=== PATIENT | female | born 1950 | race Caucasian/White ===

== ENCOUNTER 2024-06-20 13:01 | Emergency (ER) | payer MEDICARE, BC, SELFPAY ==
[2024-06-20] VITALS (10 sets, daily range): BP systolic 128–150; BP diastolic 71–80; PULSE 68–85; RESP 12–20; TEMP 36.8–36.9; O2SAT 93–98; BMI 37.8
--- NOTE | 2024-06-20 13:16 | PC.NURSE ---
Dr. Romo at [facility] for pt eval
--- NOTE | 2024-06-20 13:24 | XR_ITS ---
FINAL REPORT CLINICAL HISTORY: fall, distal pain FINDINGS: 2 views of the left forearm were obtained. A comminuted, impacted distal radial fracture. There is also a fracture of the ulnar styloid process. The joints are intact. Soft tissue swelling is noted. IMPRESSION: Fractures as above. Reviewed, Interpreted and Dictated by Ramon Joseph III, MD Transcribed by Mariel Young Authenticated and [facility]
--- NOTE | 2024-06-20 13:24 | XR_ITS ---
FINAL REPORT CLINICAL HISTORY: fall, distal pain and deformity FINDINGS: LEFT WRIST Three views demonstrate comminuted, impacted fracture of the distal radius. There is also fracture of the ulnar styloid process. No other fractures identified. There is soft tissue swelling noted. IMPRESSION: Fractures as above. Reviewed, Interpreted and Dictated by Ramon Joseph III, MD Transcribed by Mariel Young Authenticated and . [facility]
--- NOTE | 2024-06-20 13:24 | CT_ITS ---
FINAL REPORT CLINICAL HISTORY: fall 3 feet onto head FINDINGS: Axial images of the head were obtained without contrast. Coronal reformatted images were also obtained. This study was performed with techniques to keep radiation doses as low as reasonably achievable (ALARA). Individualized dose reduction techniques using automated exposure control or adjustment of mA and/or kV according to the patient''s size were employed. There is motion artifact on many sequences which limits exam sensitivity. There is generalized age-appropriate atrophy. Periventricular low-attenuation areas are seen consistent with mild chronic ischemic changes. There is no evidence of intracranial hemorrhage or mass. There is no evidence of acute infarct. There is no evidence of shift of the midline structures. 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 IMPRESSION: Atrophy and mild periventricular chronic ischemic changes. No acute intracranial abnormality identified. Reviewed, Interpreted and Dictated by Ramon Joseph III, MD Transcribed by Mariel Young Authenticated and [facility]
--- NOTE | 2024-06-20 13:24 | XR_ITS ---
FINAL REPORT CLINICAL HISTORY: fall, distal pain and deformity FINDINGS: LEFT HAND Three views demonstrate comminuted, impacted fracture of the distal radius. There is also fracture of the ulnar styloid process. No other fractures identified. There is soft tissue swelling noted. IMPRESSION: Fractures as above. Reviewed, Interpreted and Dictated by Ramon Joseph III, MD Transcribed by Mariel Young Authenticated and [facility]
--- NOTE | 2024-06-20 13:24 | CT_ITS ---
FINAL REPORT TECHNIQUE: Axial images were obtained from skull base to the thoracic inlet by computed tomography. Coronal and sagittal reconstruction process performed. This study was performed with techniques to keep radiation doses as low as reasonably achievable (ALARA). Individualized dose reduction techniques using automated exposure control or adjustment of mA and/or kV according to the patient''s size were employed. CLINICAL HISTORY: fall 3 ft onto head FINDINGS: There is no acute fracture or subluxation. There are mild to moderate degenerative changes. The left thyroid lobe is enlarged, favor goiter. The disc spaces are preserved. The facets are normally aligned. The soft tissues are unremarkable. Limited images of the lung apices demonstrate biapical scarring. IMPRESSION: No acute fracture. Reviewed, Interpreted and Dictated by Ramon Joseph III, MD Transcribed by Mariel Young Authenticated and [facility]
[2024-06-20] MEDS: ONDANSETRON 4MG ODT 4 MG SL (13:30)
[2024-06-20] MEDS: OXYCODONE 5MG IMMEDIATE RELEASE TABLET 5 MG PO (13:31)
--- NOTE | 2024-06-20 13:53 | ED_ITS ---
Discharge Plan Disposition Patient Disposition: Home, Self-Care Chief Complaint: Fall Referrals Follow up/Referrals: Morena Reese MD [Primary Care Provider] - See instructions Kevin Vizcaino DO [Staff Physician] - See instructions Activity Restrictions/Add. Instructions Additional Instructions/Restrictions: Follow-up with Dr. Vizcaino, information here. Do not bear weight or put weight on your left arm until following up. Call your family doctor to establish care for this visit to the emergency department and schedule follow-up within 48 hours to ensure improvement. If you have any worsening of your condition or any other concerning signs or symptoms, return to the emergency department or your primary care doctor for further evaluation. Clinical Impressions Clinical Impression: Forearm fracture, Head injury, Fall Print Language Print Language: Occitan Discharge ED Provider: Rafael Romo General Adult HPI General Chief complaint: Fall Stated complaint: AO 06/20/24 12:45' fell off ladder, hit back of head Time Seen by Provider: 06/20/24 13:12 Mode of Arrival: Ambulatory Source of Information: Patient Limitations: No Limitations Description of Symptoms (Recalled from ER Triage Doc. by RN): left wrist pain (looks deformed) hit back of head on a table. denies loc History of Present Illness HPI narrative: Please note that above description of symptoms, in this electronic medical record under categorization of recalled from ER triage doctor by RN are reflective of an initial nursing assessment, however, is not reflective of my full history and physical exam that was personally taken and clarified. Consequentially, this preceding description of symptoms, which may include the patient's categorized chief complaint in the EMR, do not reflect my personal clinical impression, and the ultimate description of history of present illness and patient stated complaints should be deferred to this section of the note. Unless stated otherwise or congruent with this section of the note, additional signs, symptoms, or incongruence should be interpreted as inaccurate with my clinical impression. Related Data Allergies Allergy/AdvReac Type Severity Reaction Status Date / Time No Known Allergies Allergy Verified 06/20/24 14:35 [facility] Disclaimer: The information contained in this section may have been updated after the patient was seen, as this information can be updated by other users. Social History Smoking Status: Never smoker alcohol intake: never current occupational status: employed Travel in the last 8 weeks: None ROS Obtained: Yes All systems reviewed & no additional complaints except as documented Physical Exam General General appearance: alert Head Head exam: normocephalic (Hematoma occiput) Eye Eye exam: Present normal appearance, PERRL and EOMI Neck Neck exam: Present normal inspection, full ROM and trachea midline Respiratory Respiratory exam: Absent respiratory distress, wheezes, stridor, accessory muscle use or prolonged expiratory phase Cardiovascular Cardiovascular exam: Present other (Pulses equal symmetric in upper and lower extremities) Abdominal Exam Abdominal exam: Present soft; Absent distention, tenderness or pulsatile mass Extremities Exam Extremities exam: Present other (Left upper extremity deformity at distal radius and ulna. Neurovascular intact distal); Absent edema Neurological Exam Neurological exam: Present alert, oriented X3 and CN II-XII intact; Absent motor sensory deficit Skin Skin exam: Present warm and dry; Absent diaphoresis or erythema Medical Decision Making Medical Records Medical records reviewed: Yes I reviewed the patient's medical records. Hubert Inquiry Pt receiving controlled substance: No Hubert was queried for this patient: No Vital Signs: 06/20/24 13:03 06/20/24 13:30 06/20/24 14:00 Temperature 98.4 F Temperature Source Oral Pulse Rate 84 68 Pulse Rate [Right] 85 Respiratory Rate 20 Blood Pressure 129/73 128/72 Blood Pressure [Right Arm] 150/78 H Blood Pressure Mean [Right Arm] 102 Blood Pressure Source [Right Arm] Blood Pressure Position [Right Arm] 02 Sat by Pulse Oximetry 98 95 93 L Oxygen Delivery Method Room Air Oxygen Flow Rate (LPM) 06/20/24 15:10 06/20/24 15:21 06/20/24 15:30 Temperature Temperature Source Pulse Rate 77 82 Pulse Rate [Right] 77 Respiratory Rate 12 18 18 Blood Pressure 141/77 H 141/80 H Blood Pressure [Right Arm] 150/78 H Blood Pressure Mean [Right Arm] 102 Blood Pressure Source [Right Arm] Automatic Cuff Blood Pressure Position [Right Arm] Sitting 02 Sat by Pulse Oximetry 95 97 97 Oxygen Delivery Method Room Air Room Air Nasal Cannula Oxygen Flow Rate (LPM) 2 06/20/24 15:40 06/20/24 15:50 06/20/24 16:15 Temperature Temperature Source Pulse Rate Pulse Rate [Right] 77 79 80 Respiratory Rate 16 13 15 Blood Pressure Blood Pressure [Right Arm] 129/73 128/72 141/80 H Blood Pressure Mean [Right Arm] 91 90 100 Blood Pressure Source [Right Arm] Blood Pressure Position [Right Arm] 02 Sat by Pulse Oximetry 95 98 97 Oxygen Delivery Method Nasal Cannula Nasal Cannula Nasal Cannula Oxygen Flow Rate (LPM) Orders (Tests/Meds): ED MEDICATIONS Generic Name Dose Route Start Last Admin Trade Name Freq PRN Reason Stop Dose Admin Sodium Chloride 10 ml 06/20/24 14:37 Sodium Chloride 0.9% 10ml Flush Syringe IV 07/20/24 14:36 NEEDED PRN Maintain IV Site Discontinued Medications Generic Name Dose Route Start Last Admin Trade Name Freq PRN Reason Stop Dose Admin Ketamine HCl 100 mg 06/20/24 14:30 06/20/24 15:35 Ketamine 50mg/1ml Syringe IJ 06/20/24 14:31 75 mg ONCE ONE Administration Ondansetron HCl 4 mg 06/20/24 13:24 06/20/24 13:30 Ondansetron 4mg Odt SL 06/20/24 13:25 4 mg ONCE ONE Administration Ondansetron HCl 4 mg 06/20/24 14:14 06/20/24 15:35 Ondansetron 4mg/2ml Vial IV 06/20/24 14:15 4 mg ONCE ONE Administration Oxycodone HCl 5 mg 06/20/24 13:24 06/20/24 13:31 Oxycodone 5mg Immediate Release Tablet PO 06/20/24 13:25 5 mg ONCE ONE Administration ORDERS Category Date Time Status CT cervical spine wo con Stat Cat Scan 06/20/24 13:[address] head/brain wo con Stat Cat Scan 06/20/24 13:24 Completed Forearm XR left 2 views [XR forearm LT 2V] Stat Exams 06/20/24 13:24 Completed Hand XR left minimum 3 views [XR hand LT min 3V] Stat Exams 06/20/24 13:24 Completed Wrist XR left minimum 3 views [XR wrist LT min 3V] Stat Exams 06/20/24 13:24 Completed Medical Decision Narrative: 74-year-old female history of hypertension and osteoporosis presenting with fall. Patient states that she was on a 3 foot stepladder when she fell backward, hit her head on the coffee table, then fell to the floor. Did not lose consciousness. Braced herself with her left wrist. Had immediate pain. Came immediately to the emergency department. Think she broke her left wrist. No vision changes, neck or back pain, numbness, tingling, weakness in her legs, bowel or bladder dysfunction. Pain is severe, 8 out of 10 in her head, severe, 7 out of 10 in her left wrist. Neither of them radiate. Has not taken anything for the pain. History was obtained via conversation with patient and . On arrival, patient hemodynamically stable, alert, oriented x4, appropriate, GCS 15, moving all extremities spontaneously, pupils equal and reactive to light. Full physical exam performed and significant for deformity left distal radius and ulna. Neurovascular intact distally. Good capillary refill. Range of motion of digits intact, range of motion of elbow intact, but limited at wrist secondary to pain and swelling. Also has hematoma on occiput, no laceration. No midline spinal tenderness. Differential includes intracranial hemorrhage, concussion, scalp hematoma, fracture, sprain, strain, dislocation, neurovascular injury, among others. Patient was given oxycodone, Zofran for symptomatic management and correction of underlying abnormalities. Workup independently interpreted and significant for both bone fracture left distal forearm with angulation and displacement. CT head without acute intracranial abnormality, CT C-spine without spinal abnormality. Patient was sedated with ketamine, see sedation note. Splinted with plaster. On reevaluation, patient back to baseline, well-appearing. Because patient at baseline without signs or symptoms of clinical decompensation, deemed appropriate for discharge. Results were relayed to patient who voiced understanding and were agreeable to outpatient management and follow up. I discussed my clinical impression with patient and answered all questions. At this time, the evidence for any other entities in the differential is insufficient to warrant any further testing or ED observation. This was explained as well. Advisory was given that persistent or worsening symptoms require further evaluation. I confirmed the understanding of this discussion. Housekeeper [employer] disclaimer Much of this encounter note is an electronic international marketing executive spoken language to printed text. Electronic international marketing executive of the spoken language may permit errors. Although I have reviewed the note, some errors may still exist. Procedures Orthopedic Fracture Reduction Fracture #1: Time Out Performed: Yes Side: left Fracture Reduction Location: radius and ulna Analgesia: procedural sedation Technique: direct manipulation and traction/counter-traction Post-reduction neuro exam: intact and no change Post-reduction vascular exam: intact and no change Splint Applied: Yes Patient Tolerated Procedure: well Procedural Sedation A heart and lung assessment was performed on this patient at: 14:00 Mallampati Score:: Class III Indication: fracture/dislocation reduction ASA Class: I Preparation: manager monitoring applied, pulse oximeter, capnometry used, supplemental O2 applied, suction/airway equipment at bedside and IV secured Ketamine: IV Ketamine dose (mg): 75 Patient Tolerated Procedure: well Complications: none Critical Care Critical Care Time Critical Care Time: No
[2024-06-20] MEDS: KETAMINE 50MG/1ML SYRINGE 100 MG IJ (15:35)
[2024-06-20] MEDS: ONDANSETRON 4MG/2ML VIAL 4 MG IV (15:35)
== END 2024-06-20 16:55 | disposition home or self-care (01) ==
PROVIDERS: Emergency Provider Emergency Medicine; PCP Internal Medicine
DX: S09.90XA Unspecified injury of head, initial encounter (principal); S52.352A Displaced comminuted fracture of shaft of radius, left arm, initial encounter for closed fracture; S52.612A Displaced fracture of left ulna styloid process, initial encounter for closed fracture; W11.XXXA Fall on and from ladder, initial encounter
CPT/HCPCS: 99152; 70450; 72125; 73090; 73110; 73130; 96374; 99153; 99285; J2405; Q0162

== ENCOUNTER 2025-11-08 16:36 | Outpatient (CLI) | payer MEDICARE, BC, SELFPAY ==
--- OUTSIDE RECORDS SUMMARY | 2025-09-29 12:55 | XMS_ITS | Encounter Summary ---
Author Organization [employer] ([place], [place], [place], [place], [place]) Address [address] [place] [address] Care Team Providers Care Package Sealer Machine Name Role Phone Morena Reese MD Primary Care Provider [phone] Reason for Referral * CAT Scan (Routine) - New Request Specialty Diagnoses / Procedures Referred By Contac t Referred To Contact Radiology Diagnoses Personal history of tobacco use, presenting hazards to health Procedures CT LUNG SCREENING ANNUAL FOLLOWUP Morena Reese MD [address] [employer] [address] [address] Phone: tel: Referral ID Status Reason Start Date Expiration Date V isits Requested Visits Authorized [id number] New Request 09/26/2025 09/26/2026 1 1 Reason for Visit * CAT Scan (Routine) - New Request Specialty Diagnoses / Procedures Referred By Contac t Referred To Contact Radiology Diagnoses Personal history of tobacco use, presenting hazards to health Procedures CT LUNG SCREENING ANNUAL FOLLOWUP Morena Reese MD [address] [employer] [address] [address] Phone: tel: Referral ID Status Reason Start Date Expiration Date V isits Requested Visits Authorized [id number] New Request 09/26/2025 09/26/2026 1 1 Encounter Details Date Type Department Care Team (Latest Contact Info) Description 09/29/2025 12:55 PM EST - 09/29/2025 11:59 PM EST Hospital Encounter [facility] Imaging CT - [facility] [address] [facility] [address] [place] [address] Morena Reese MD [address] [facility] [address] [place], [place] [id number] Personal history of tobacco use, presenting hazards to health Discharge Disposition: Home or Self Care Social History Tobacco Use Types Packs/Day Years Used Date Smoking Tobacco: Former Cigarettes Q uit: 06/28/2014 Smokeless Tobacco: Never Comments:e cig for a few mon ths Alcohol Use Standard Drinks/Week Comments Yes 0 (1 standard drink = 0.6 oz pur e alcohol) occasionally, 1 week Family and Community Support Answer Eddie e Recorded Help with Day to Day Activities Not on file 11/24/2023 Feeling Lonely or Isolated Not on file 11/24 Educational Attainment Answer Date Vito rded Speak language other than Namibian at home Not on file 11/24/2023 Want help with school or training Not on file 11/24/2023 Substance Use Answer Date Recorded Used prescription meds for non-medical reasons N ot on file 11/24/2023 Used illegal drugs past 12 months Not on file 11/24/2023 Comments No Sex and Gender Information Value Date Recorded Sex Assigned at Female 05/10/2022 8:24 PM CDT Legal Sex Female 8:24 PM CDT Gender Identity Female 05/10/2022 8:24 PM CDT Sexual Orientation Not on file documented as of this encounter Medications at Time of Discharge alendronate (FOSAMAX) 70 MG tablet alendronate 70 mg tablet Take 1 tablet every week by oral route for 90 days. amLODIPine (NORVASC) 10 MG tablet amlodipine 10 mg tablet TAKE ONE TABLET BY MOUTH ONCE DAILY DULoxetine (CYMBALTA) 30 MG capsule daily. inFLIXimab (Remicade) 100 mg injection Remicade 5mg/kg IV q 6 wks (SJE) losartan (COZAAR) 25 MG tablet losartan 25 mg tablet TAKE ONE TABLET BY MOUTH ONCE DAILY documented as of this encounter Plan of Treatment Upcoming Encounters Date Type Department Care Team (Late st Contact Info) Description 11/25/2025 9:00 AM EST Appointment [facility] Outpatient Treatment [address] [place] [address] documented as of this encounter Procedures Procedure Name Priority Date/Time Associated Diagnosis Comments CT LUNG SCREENING ANNUAL FOLLOWUP Routine 09/29/2025 1:08 PM EST Personal history of tobacco use, presenting hazards to health documented in this encounter Results * CT LUNG SCREENING ANNUAL FOLLOWUP (09/29/2025 1:08 PM EST) Anatomical Region Laterality Modality Chest, Lung Computed Tomogra phy (CT) 09/30/2025 10:3 9 AM EST Impressions 09/30/2025 11:41 AM EST Lung Rads Category 2S: Continued low dose chest CT recommended in 1 year. Images reviewed, interpreted, and dictated by Dr. Qamar Barros. Transcribed by Hortencia Porter PA-C. Narrative 09/30/2025 11:[address] SCAN OF THE CHEST 09/29/2025 1:00 PM HISTORY: Screening CT. Former smoker who quit 11 years prior with a 47 pack-year smoking history. COMPARISON: None. PROCEDURE: Axial images were obtained from the lung apex to the mid abdomen by computed tomography. Low-dose protocol was utilized. The CTDIvol is 2.9 mGy. The DLP is 101.11 mGy*cm. This study was performed with techniques to keep radiation doses as low as reasonably achievable, (ALARA). Individualized dose reduction techniques using automated exposure control or adjustment of mA and/or kV according to the patient size were employed. FINDINGS: CHEST: The left lobe of thyroid is enlarged with a possible 4 cm nodule, recommend dedicated thyroid ultrasound. There is a 14 mm right paratracheal lymph node. There is a 16 mm left prevascular lymph node and a 14 mm subcarinal lymph node. Heart size is normal. There is no pericardial or pleural effusion. Limited images of the upper abdomen shows a small hiatal hernia. There is cholelithiasis without evidence of cholecystitis. There is bibasilar atelectasis or fibrosis in the lungs. There is a 2 mm nodule in the left upper lobe as seen on image 32 of series 3. us Morena Reese MD IMG CT ORDERABLES Final Resul t documented in this encounter Visit Diagnoses Diagnosis Personal history of tobacco use, presenting hazards to health documented in this encounter Care Teams Package Sealer Machine Relationship Specialty Start Date End Date Morena Reese MD [address] [address] PCP - General General Internal Medicine 10/17/22 documented as of this encounter
--- OUTSIDE RECORDS SUMMARY | 2025-10-14 09:00 | XMS_ITS | Encounter Summary ---
Author Organization [employer] ([place], [place], [place], [place], [place]) Address [address] [place] [address] Care Team Providers Care Application Packaging Consultant Name Role Phone Morena Reese MD Primary Care Provider [phone] Reason for Visit * Episode Based Medication (Routine) - Authorized Specialty Diagnoses / Procedures Referred By Contac t Referred To Contact Infusion Therapy Diagnoses REMICAID 5 MG, DX. M05.79, DR MARGA REGAN Procedures HI INFLIXIMAB NOT BIOSIMIL 10MG [facility] INFUSION/INJECTION Morena Reese MD [address] [address] Phone: tel: [facility] Treatment [address] [place] [address] Phone: tel: fax: Referral ID Status Reason Start Date Expiration Date V isits Requested Visits Authorized [id number] Authorized 03/05/2024 11/12/2025 [id number] Encounter Details Date Type Department Care Team (Latest Contact Info) Description 10/14/2025 9:00 AM EST - 10/14/2025 11:59 PM [facility] Hospital Encounter [facility] Treatment [address] [place] [address] Seropositive rheumatoid arthritis of multiple sites (HCC) (Primary Dx) Discharge Disposition: Home or Self Care Social [...] Date Vito rded Speak language other than Burundian at home Not on file 11/24/2023 Want [...] on file documented as of this encounter Last Filed Vital Signs Vital Sign Reading Time Taken Comments Blood Pressure 162/72 10/14/2025 11:30 AM EST Pulse 66 10/14/2025 11:30 AM EST Temperature - - Respiratory Rate 18 10/14/2025 9:21 AM EST Oxygen Saturation 96% 10/14/2025 9:21 AM EST Inhaled Oxygen Concentration - - Weight 99.8 kg (220 lb) 10/14/2025 9:21 AM EST Height 162.6 cm (5' 4 ) 10/14/2025 9:21 AM EST Body Mass Index 37.76 10/14/2025 9:21 AM EST documented in this encounter Functional Status * Resp Answer Date of Assessment Author 18 10/14/2025 9:21 AM Trisha Pastor RN * SpO2 Answer Date of Assessment Author 96 10/14/2025 9:21 AM Trisha Pastor RN * Height Answer Date of Assessment Author 64 10/14/2025 9:21 AM Trisha Pastor RN * Weight Answer Date of Assessment Author 3520 10/14/2025 9:21 AM Trisha Pastor RN * Tidal Volume Answer Date of Assessment Author 320 10/14/2025 9:21 AM Trisha Pastor, ZUHAIR * Shock Index Answer Date of Assessment Author 0.41 10/14/2025 11:30 AM Trisha Pastor RN * Vitals Question Answer Date of Assessment Author BP 162/72 10/14/2025 11:30 AM Trisha Cohn RN Pulse 66 10/14/2025 11:30 AM Trisha Cohn RN Heart Rate Source Monitor/Pulse Ox 10/14/2025 11:30 AM Trisha Pastor RN * Bennett Fall Risk Question Answer Date of Assessment Author History of Falling 0 10/14/2025 9:25 AM Trisha Pastor RN Secondary Diagnosis 0 10/14/2025 9:25 AM T Trisha Nguyen RN Ambulatory Aids 0 10/14/2025 9:25 AM Trisha Friedman RN Intravenous Therapy/Intraven ous Access 20 10/14/2025 9:25 AM Trisha Pastor RN Gait/Transferring 0 10/14/2025 9:25 AM Trisha Pastor RN Mental Status 0 10/14/2025 9:25 AM Trisha Cohn RN Score 20 10/14/2025 9:25 AM Trisha Trinh RN * BMI (Calculated) Answer Date of Assessment Author 37.7 10/14/2025 9:21 AM Trisha Pastor RN * BP Location Answer Date of Assessment Author Right arm 10/14/2025 9:21 AM Trisha Pastor RN * Fall Risk Interventions Question Answer Date of Assessment Author Basic Safety Measures [place] patient to surroundings 10/14/2025 9:25 AM Trisha Pastor RN * Restart Vitals Timer Answer Date of Assessment Author Yes 10/14/2025 9:21 AM Trisha Pastor RN * Patient Position Answer Date of Assessment Author Sitting 10/14/2025 9:21 AM Trisha Pastor RN * Resp Answer Date of Assessment Author 18 10/14/2025 9:21 AM Trisha Pastor RN * SpO2 Answer Date of Assessment Author 96 10/14/2025 9:21 AM Trisha Pastor RN * Vitals Question Answer Date of Assessment Author BP 162/72 10/14/2025 11:30 AM Trisha Cohn RN Pulse 66 10/14/2025 11:30 AM Trisha Cohn RN * Bennett Fall Risk Question Answer Date of Assessment Author History of Falling 0 10/14/2025 9:25 AM Trisha Pastor RN Secondary Diagnosis 0 10/14/2025 9:25 AM T Trisha Nguyen RN Ambulatory Aids 0 10/14/2025 9:25 AM Trisha Friedman RN Intravenous Therapy/Intraven ous Access 20 10/14/2025 9:25 AM Trisha Pastor RN Gait/Transferring 0 10/14/2025 9:25 AM Trisha Pastor RN Mental Status 0 10/14/2025 9:25 AM Trisha Cohn RN Score 20 10/14/2025 9:25 AM Trisha Trinh RN * BMI (Calculated) Answer Date of Assessment Author 37.7 10/14/2025 9:21 AM Trisha Pastor RN * Fall Risk Interventions Question Answer Date of Assessment Author Basic Safety Measures [place] patient to surroundings 10/14/2025 9:25 AM Trisha Pastor RN documented as of this encounter Mental Status * Resp Answer Entry Date Author 18 10/14/2025 9:21 AM Trisha Pastor RN * SpO2 Answer Entry Date Author 96 10/14/2025 9:21 AM Trisha Pastor RN * Height Answer Entry Date Author 64 10/14/2025 9:21 AM Trisha Pastor RN * Weight Answer Entry Date Author 3520 10/14/2025 9:21 AM Trisha Pastor RN * Tidal Volume Answer Entry Date Author 320 10/14/2025 9:21 AM Trisha Pastor RN * Shock Index Answer Entry Date Author 0.41 10/14/2025 11:30 AM Trisha Pastor RN * Vitals Question Answer Entry Date Author BP 162/72 10/14/2025 11:30 AM Trisha Cohn RN Pulse 66 10/14/2025 11:30 AM Trisha Cohn RN Heart Rate Source Monitor/Pulse Ox 10/14/2025 11:30 AM Trisha Pastor RN * Bennett Fall Risk Question Answer Entry Date Author History of Falling 0 10/14/2025 9:25 AM Trisha Pastor RN Secondary Diagnosis 0 10/14/2025 9:25 AM CS T Trisha Nguyen RN Ambulatory Aids 0 10/14/2025 9:25 AM Trisha Friedman RN Intravenous Therapy/Intraven ous Access 20 10/14/2025 9:25 AM Trisha Pastor RN Gait/Transferring 0 10/14/2025 9:25 AM Trisha Pastor RN Mental Status 0 10/14/2025 9:25 AM Trisha Cohn RN Score 20 10/14/2025 9:25 AM Trisha Trinh RN * BMI (Calculated) Answer Entry Date Author 37.7 10/14/2025 9:21 AM Trisha Pastor RN * BP Location Answer Entry Date Author Right arm 10/14/2025 9:21 AM Trisha Pastor RN * Fall Risk Interventions Question Answer Entry Date Author Basic Safety Measures [place] patient to surroundings 10/14/2025 9:25 AM Trisha Pastor RN * Patient Position Answer Entry Date Author Sitting 10/14/2025 9:21 AM Trisha Pastor RN documented in this encounter Medications at Time of Discharge [...] Info) Description 11/25/2025 9:00 AM EST Appointment [facility] [address] [place] [address] documented as of this encounter Visit Diagnoses Diagnosis Seropositive rheumatoid arthritis of multiple sites (HCC)- Primary documented in this encounter Administered Medications Inactive Administered Medications - up to 3 most recent administrations Medication Order MAR Action Action Date Dose Rate Site acetaminophen (TYLENOL) tablet 1,000 mg 1,000 mg Once, oral, On Mon10/14/25 at 0930, For 1 dose, Recommended maximum dose of acetaminophen is 4000 mg from all sources in 24 hoursIndications:Seropositiv e rheumatoid arthritis of multiple sites (HCC) Given 10/14/2025 9:27 AM EST 1,000 mg diphenhydrAMINE (BENADRYL) tablet 25 mg 25 mg Once, oral, On Mon10/14/25 at 0930, For 1 doseIndications:Seropositive rheumatoid arthritis of multiple sites (HCC) Given 10/14/2025 9:28 AM EST 25 mg inFLIXimab (REMICADE) 500 mg in sodium chloride 0.9 % (NS) 200 mL IVPB 500 mg Once, intravenous, Administer over 2 Hours, On Mon10/14/25 at 0930, For 1 dose, REMICADE should not be infused concomitantly in the same intravenous line with other agents. Infuse over at least 2 hours. Use an infusion set with an in-line, sterile, non-pyogenic, ljf-regfwsx-ejcgwts filter (pore size of 1.2 B5m or less). Keep Refrigerated. Look-alike/Sound-alike medicationIndications:Sero positive rheumatoid arthritis of multiple sites (HCC) IVPB Started 10/14/2025 9:41 AM EST 500 mg 125 mL/hr documented in this encounter Care Teams Application Packaging Consultant Relationship Specialty Start Date End Date Morena Reese MD [address] [address] PCP - General General Internal Medicine 10/17/22 documented as of this encounter
--- NOTE | 2025-11-08 16:44 | XR_ITS ---
PROCEDURE INFORMATION: Exam: XR Right Ankle Exam date and time: 11/08/2025 4:41 PM Age: 75 years old Clinical indication: Pain; Ankle; Right; Additional info: R foot pain TECHNIQUE: Imaging protocol: Radiologic exam of the right ankle. Views: 3 or more views. COMPARISON: CR XR ANKLE RT MIN 3V 11/08/2025 4:41 PM FINDINGS: Bones/joints: There is an oblique fracture at the base of the right 5th metatarsal .. Soft tissues: Normal. IMPRESSION: 1. There is an oblique fracture at the base of the right 5th metatarsal . 2. No evidence for ankle fracture.
--- NOTE | 2025-11-08 16:44 | XR_ITS ---
PROCEDURE INFORMATION: Exam: XR Right Foot Exam date and time: 11/08/2025 4:42 PM Age: 75 years old Clinical indication: Pain; Foot; Right; Additional info: R foot pain TECHNIQUE: Imaging protocol: Radiologic exam of the right foot. Views: 3 or more views. COMPARISON: CR Ankle R 11/08/2025 4:41 PM FINDINGS: Bones/joints: There is an oblique fracture at the base of the right 5th metatarsal . Soft tissues: Normal. IMPRESSION: There is an oblique fracture at the base of the right 5th metatarsal .
--- OUTSIDE RECORDS SUMMARY | 2025-11-08 16:44 | XMS_ITS | Encounter Summary ---
Author Organization [employer] ([place], [place], [place], [place], [place]) Address [address] [place] [address] Care Team Providers Care Practicing Md Anesthesiologist Name Role Phone Morena Reese MD Primary Care Provider [phone] Encounter Details Date Type Department Care Team (Late st Contact Info) Description 08/06/2020 Transcribed Document [facility] Family Medicine [address] [place] [address] ProviderJavier MD [address] [place] [address] Social History Tobacco Use Types Packs/Day Years Used Date Smoking Tobacco: Never Assessed Comments Unknown Sex and Gender Information Value Date Recorded Sex Assigned at Female 05/10/2022 8:24 PM CDT Legal Sex Female 8:24 PM CDT Gender Identity Female 05/10/2022 8:24 PM CDT Sexual Orientation Not on file documented as of this encounter Miscellaneous Notes * Cerner Conversion Note - Javier Hale MD - 08/06/2020 1:17 PM CDT Nursing Discharge Summary Entered On: 08/06/2020 13:17 EDT Performed On: 08/06/2020 13:17 EDT by ELLIOTT ZEPEDA RN Discharge Documentation Discharge Date/Time : 08/06/2020 12:30 EDT Patient Disposition, General : Discharge Discharge To : Home with ambulatory/outpatient follow-up IV Discontinued : Yes Personal Belongings With Patient : Yes Discharge Instructions Reviewed With, Opportunity For Questions Given : Patient Teaching Method : Explanation Teaching Evaluation : Verbalizes understanding ELLIOTT ZEPEDA RN - 08/06/2020 13:17 EDT documented in this encounter Plan of Treatment Upcoming Encounters Date Type Department Care Team (Late st Contact Info) Description 11/25/2025 9:00 AM EST Appointment [facility] Outpatient Treatment [address] [place] [address] documented as of this encounter Visit Diagnoses Not on filedocumented in this encounter Care Teams Practicing Md Anesthesiologist Relationship Specialty Start Date End Date Morena Reese MD [address] [address] PCP - General General Internal Medicine 10/17/22 documented as of this encounter
--- OUTSIDE RECORDS SUMMARY | 2025-11-08 16:44 | XMS_ITS | Encounter Summary ---
Author Organization [employer] ([place], [place], [place], [place], [place]) Address [address] [place] [address] Care Team Providers Care Weaver Wire Loom Name Role Phone Morena Reese MD Primary Care Provider [phone] Encounter Details Date Type Department Care Team (Late st Contact Info) Description 04/09/2020 Transcribed Document [facility] Family Medicine [address] [place] [address] ProviderJavier MD [address] [place] [address] Social History Tobacco Use Types Packs/Day Years Used Date Smoking Tobacco: Never Assessed Comments Unknown Sex and Gender Information Value Date Recorded Sex Assigned at Female 05/10/2022 8:24 PM CDT Legal Sex Female 8:24 PM CDT Gender Identity Female 05/10/2022 8:24 PM CDT Sexual Orientation Not on file documented as of this encounter Miscellaneous Notes * Cerner Conversion Note - Javier ProviderMD - 04/09/2020 3:52 PM CDT Nursing Discharge Summary Entered On: 04/09/2020 15:53 EDT Performed On: 04/09/2020 15:52 EDT by ROSE PERDOMO Discharge Documentation Discharge Date/Time : 04/09/2020 15:52 EDT Patient Disposition, General : Discharge Discharge To : Home with ambulatory/outpatient follow-up Mode Of Departure, General Discharge : Ambulatory Accompanied By, Discharge : Unaccompanied IV Discontinued : Yes Personal Belongings With Patient : Yes Discharge Instructions Reviewed With, Opportunity For Questions Given : Patient Patient Education Completed : Yes Teaching Method : Explanation Teaching Evaluation : Verbalizes understanding Education Comment : raheel infusion without difficulty. skin wdp resp unlabored/even/a+ox4. ROSE PERDOMO - 04/09/2020 15:52 EDT Electronically signed by [place], [facility] Conversion Detective [employer] Cerner at 02/28/2023 6:04 PM CDT documented in this encounter Plan of Treatment Upcoming Encounters Date Type Department Care Team (Late st Contact Info) Description 11/25/2025 9:00 AM EST Appointment [facility] Outpatient Treatment [address] [place] [address] documented as of this encounter Visit Diagnoses Not on filedocumented in this encounter Care Teams Weaver Wire Loom Relationship Specialty Start Date End Date Morena Reese MD [address] [address] PCP - General General Internal Medicine 10/17/22 documented as of this encounter
--- OUTSIDE RECORDS SUMMARY | 2025-11-08 16:44 | XMS_ITS | Encounter Summary ---
Author Organization [employer] ([place], [place], [place], [place], [place]) Address [address] [place] [address] Care Team Providers Care Analytics Consultant Name Role Phone Morena Reese MD Primary Care Provider [phone] Encounter Details Date Type Department Care Team (Late st Contact Info) Description 08/29/2019 Transcribed Document [facility] Family Medicine [address] [place] [address] ProviderJavier MD [address] [place] [address] Social History Tobacco Use Types Packs/Day Years [...] Conversion Note - Javier Hale MD - 08/29/2019 9:07 AM CDT Outpatient Visit History Entered On: 08/29/2019 9:09 EDT Performed On: 08/29/2019 9:07 EDT by ELLIOTT ZEPEDA RN Vital Measurements Temperature Source : Temporal artery scanning Temperature Mode : Fahrenheit Temperature, Fahrenheit : 98.3 Deg F Clinical Temperature, C : 36.8 Deg C Heart Rate, Apical : 82 bpm Respiratory Rate : 16 Breaths/Min Blood Pressure Location : Arm, right upper Blood Pressure Source : Non-Invasive BP Device Blood Pressure Position : Sitting Systolic Blood Pressure : 121 mmHg Diastolic Blood Pressure : 65 mmHg Oxygen Saturation : 94 % Oxygen Therapy Mode : Room air ELLIOTT ZEPEDA RN - 08/29/2019 9:07 EDT Height and Weight, Clinical Dosing Height Source : Stated Height Entry Format : [place] Height, Feet : 5 ft(Converted to: 152 cm, 60 Inch) Height, Inches : 4 Inch(Converted to: 0 ft 4 Inch, 10.16 cm) Clinical Height : 162.56 cm Weight Source : Standing scale Weight Entry Format : [place] Clinical Dosing Weight : 95.45 kg Weight, Pounds : 210 lb Body Surface Area (BSA) : 2 m2 Body Mass Index : 36.1 kg/m2 (HI) [place] Body Weight : 54 kg ELLIOTT ZEPEDA RN - 08/29/2019 9:07 EDT Health Histories Smoking Status : Former smoker, quit more than 30 days ago Smokeless Tobacco Status : Never ELLIOTT ZEPEDA RN - 08/29/2019 9:07 EDT Social History (As Of: 08/29/2019 09:09:48 EDT) Tobacco: Former smoker, quit more than 30 days ago Smoking Status. (Last Updated: 05/08/2019 08:51:39 EDT by ROSE PERDOMO) Alcohol: Alcohol Use History Yes. Total Drinks/Week: 2. Alcohol Use Frequency Weekly. (Last Updated: 11/12/2018 09:08:53 EST by EDENILSON ANDREWS, ZUHAIR) Substance Abuse: Drug Use Hx: No. Use in Last 12 Months: No. (Last Updated: 11/12/2018 09:08:59 EST by EDENILSON ANDREWS, ZUHAIR) Advance Directive Patient has Advance Directive *Q : No, patient refuses Advance Directive information ELLIOTT ZEPEDA RN - 08/29/2019 9:07 EDT Psychosocial History Chronic/Terminal Illness w/Freq Visits : No Do You Have a History of the Following? : Anxiety Currently in Unsafe Situation : No Tried to Harm Yourself in the Past? : No Thoughts of Harming/Killing Yourself : No ELLIOTT ZEPEDA RN - 08/29/2019 9:07 EDT Fall Risk Scales ABCs Fall Injury Risk Identification : None MARLEY Hx Falls Immediate/Within 3 Months : No Amrley Secondary Diagnosis : No MARLEY Use of Ambulatory Aid : None MARLEY IV Therapy or IV Access : Yes Marley Gait/Transferring : Normal, bedrest, immobile Marley Mental Status : Oriented to own ability Marley Fall Risk Score : 20 MARLEY Fall Scale Risk Level : 0-24 Low Risk [place] Fall Interventions : Adequate lighting, Assistive devices within reach, Bed in low position, Call device within reach, Fall prevention handout/education per facility policy, Frequent orientation to call device, Frequent orientation to surroundings, Hourly comfort/safety rounds, Non-slip footwear, Personal items within reach, Reinforced to call for assistance before getting out of bed, Room free of clutter/spills, Upper side-rails up, Wheels locked, Wires/Cords secured ELLIOTT ZEPEDA RN - 08/29/2019 9:07 EDT documented in this encounter Plan of Treatment Upcoming Encounters Date Type Department Care Team (Late st Contact Info) Description 11/25/2025 9:00 AM EST Appointment [facility] Outpatient Treatment [address] [place] [address] documented as of this encounter Visit Diagnoses Not on filedocumented in this encounter Care Teams Analytics Consultant Relationship Specialty Start Date End Date Morena Reese MD [address] [address] PCP - General General Internal Medicine 10/17/22 documented as of this encounter
--- OUTSIDE RECORDS SUMMARY | 2025-11-08 16:44 | XMS_ITS | Encounter Summary ---
Author Organization [employer] ([place], [place], [place], [place], [place]) Address [address] [place] [address] Care Team Providers Care Hospice Care Sales Consultant Name Role Phone Morena Reese MD Primary Care Provider [phone] Encounter Details Date Type Department Care Team (Late st Contact Info) Description 10/24/2019 Transcribed Document [facility] [place] [address] [place] [address] ProviderJavier MD [address] [place], [place] [address] Social History Tobacco Use Types Packs/Day Years [...] Conversion Note - Javier Hale MD - 10/24/2019 2:23 PM ARCHIVIST Outpatient Visit History Entered On: 10/24/2019 14:27 EST Performed On: 10/24/2019 14:23 EST by GALLITO RODARTE, RN Vital Measurements Temperature Source : Temporal artery scanning Temperature Mode : Fahrenheit Temperature, Fahrenheit : 97.7 Deg F Clinical Temperature, C : 36.5 Deg C Pulse Method : Non-Invasive BP Device Peripheral Pulse Rate : 91 bpm Respiratory Rate : 20 Breaths/Min Blood Pressure Location : Arm, right upper Blood Pressure Source : Non-Invasive BP Device Blood Pressure Position : Supine Systolic Blood Pressure : 122 mmHg Diastolic Blood Pressure : 56 mmHg (LOW) Oxygen Saturation : 93 % (LOW) Oxygen Therapy Mode : Room air GALLITO RODARTE RN - 10/24/2019 14:23 EST Height and Weight, Clinical Dosing Height Source : Chart Height Entry Format : [place] Height, Feet : 5 ft(Converted to: 152 cm, 60 Inch) Height, Inches : 4 Inch(Converted to: 0 ft 4 Inch, 10.16 cm) Clinical Height : 162.56 cm Weight Source : Standing scale Weight Entry Format : [place] Clinical Dosing Weight : 100 kg Weight, Pounds : 220 lb Body Surface Area (BSA) : 2.04 m2 Body Mass Index : 37.8 kg/m2 (HI) [place] Body Weight : 54 kg GALLITO RODARTE RN - 10/24/2019 14:23 EST Quick Look Assessment Level of Consciousness : Alert Affect/Behavior : Appropriate Orientation : Oriented x 4 Skin Temperature : Warm Skin Description : Dry GALLITO RODARTE RN - 10/24/2019 14:23 EST Health Histories Smoking Status : Former smoker, quit more than 30 days ago Smokeless Tobacco Status : Never GALLITO RODARTE RN - 10/24/2019 14:23 EST Social History (As Of: 10/24/2019 14:27:48 EST) Tobacco: Former smoker, quit more than 30 [...] Directive Patient has Advance Directive *Q : Yes, Advance Directive on file Advance Directive Type : Living will Copy Advance Directive Verified/on Chart : No GALLITO RODARTE RN - 10/24/2019 14:23 EST [place] Suicide Severity Rating Scale (C-SSRS) CSSRS Past Month Wish to be : No CSSRS Past Month Suicidal Thoughts : No CSSRS Lifetime Suicide Behavior : No Suicide Severity Rating Score : 0 Suicide Severity Rating : No Additional Care Required at this time GALLITO RODARTE RN - 10/24/2019 14:23 EST Psychosocial History Does Someone Depend on You for Care? : No Chronic/Terminal Illness w/Freq Visits : No Do You Have a History of the Following? : Anxiety Currently in Unsafe Situation : No GALLITO RODARTE RN - 10/24/2019 14:23 EST Fall Risk Scales ABCs Fall Injury Risk Identification : None MARLEY Hx Falls Immediate/Within 3 Months : No Marley Secondary Diagnosis : No MARLEY Use of Ambulatory Aid : None MARLEY IV Therapy or IV Access : No Marley Gait/Transferring : Normal, bedrest, immobile Marley Mental Status : Oriented to own ability Marley Fall Risk Score : 0 MARLEY Fall Scale Risk Level : 0-[address] Fall Interventions : Adequate lighting, Bed in low position, Call device within reach, Frequent orientation to call device, Frequent orientation to surroundings, Hourly comfort/safety rounds, Non-slip footwear, Personal items within reach, Reinforced to call for assistance before getting out of bed, Room free of clutter/spills, Wheels locked, Wires/Cords secured GALLITO RODARTE RN - 10/24/2019 14:23 EST Pain Assessment Pain Assessment : Initial assessment Intensity : 0 GALLITO RODARTE RN - 10/24/2019 14:23 EST Electronically signed by [facility] Conversion Marine Scientist Cerner at 02/28/2023 6:09 PM CDT documented in this encounter Plan of Treatment Upcoming Encounters Date Type Department Care Team (Late st Contact Info) Description 11/25/2025 9:00 AM EST Appointment [facility] Outpatient Treatment [address] [place] [address] documented as of this encounter Visit Diagnoses Not on filedocumented in this encounter Care Teams Hospice Care Sales Consultant Relationship Specialty Start Date End Date Morena Reese MD [address] [address] PCP - General General Internal Medicine 10/17/22 documented as of this encounter
--- OUTSIDE RECORDS SUMMARY | 2025-11-08 16:44 | XMS_ITS | Encounter Summary ---
Author Organization [employer] ([place], [place], [place], [place], [place]) Address [address] [place] [address] Care Team Providers Care In Store Banker Name Role Phone Morena Reese MD Primary Care Provider [phone] Encounter Details Date Type Department Care Team (Late st Contact Info) Description 06/01/2020 Transcribed Document [facility] [place] [address] [place] [address] ProviderJavier MD [address] [place] [address] Social History Tobacco Use Types Packs/Day Years [...] Conversion Note - Javier Hale MD - 06/01/2020 4:24 PM CDT Nursing Discharge Summary Entered On: 06/01/2020 16:27 EDT Performed On: 06/01/2020 16:24 EDT by EDENILSON ANDREWS RN Discharge Documentation Discharge Date/Time : 06/01/2020 16:24 EDT Patient Disposition, General : Discharge Discharge To : Home with ambulatory/outpatient follow-up Mode Of Departure, General Discharge : Ambulatory Accompanied By, Discharge : Unaccompanied IV Discontinued : Yes Personal Belongings With Patient : Yes Medications Given to Patient : Yes EDENILSON ANDREWS RN - 06/01/2020 16:24 EDT Electronically signed by Santi Barahona Conversion Certified [place] Administrator Cerner at 02/28/2023 6:02 PM CDT documented in this encounter Plan of Treatment Upcoming Encounters Date Type Department Care Team (Late st Contact Info) Description 11/25/2025 9:00 AM EST Appointment [facility] Outpatient Treatment [address] [place] [address] documented as of this encounter Visit Diagnoses Not on filedocumented in this encounter Care Teams In Store Banker Relationship Specialty Start Date End Date Morena Reese MD [address] [address] PCP - General General Internal Medicine 10/17/22 documented as of this encounter
--- OUTSIDE RECORDS SUMMARY | 2025-11-08 16:44 | XMS_ITS | Encounter Summary ---
Author Organization [employer] ([place], [place], [place], [place], [place]) Address [address] [place] [address] Care Team Providers Care Feed Preparation Operator Name Role Phone Morena Reese MD Primary Care Provider [phone] Encounter Details Date Type Department Care Team (Late st Contact Info) Description 10/24/2019 Transcribed Document [facility] [place] Medicine [address] [place] [address] ProviderJavier MD [address] [place] [address] Social History Tobacco Use Types Packs/Day Years [...] Note - Javier Hale MD - 10/24/2019 4:50 PM MANAGER OF DISASTER RECOVERY Nursing Discharge Summary Entered On: 10/24/2019 16:45 EST Performed On: 10/24/2019 16:50 EST by GALLITO RODARTE RN Discharge Documentation Discharge Date/Time : 10/24/2019 16:50 EST Patient Disposition, General : Discharge Discharge To : Home with ambulatory/outpatient follow-up Mode Of Departure, General Discharge : Ambulatory Accompanied By, Discharge : Unaccompanied IV Discontinued : Yes IV Therapy Comment : no complications Personal Belongings With Patient : Yes Discharge Instructions Reviewed With, Opportunity For Questions Given : Patient Teaching Method : Explanation Teaching Evaluation : Verbalizes understanding Education Comment : Return in 8 weeks GALLITO RODARTE RN - 10/24/2019 16:44 EST documented in this encounter Plan of Treatment Upcoming Encounters Date Type Department Care Team (Late st Contact Info) Description 11/25/2025 9:00 AM EST Appointment [facility] Outpatient Treatment [address] [place] [address] documented as of this encounter Visit Diagnoses Not on filedocumented in this encounter Care Teams Feed Preparation Operator Relationship Specialty Start Date End Date Morena Reese MD [address] [address] PCP - General General Internal Medicine 10/17/22 documented as of this encounter
--- OUTSIDE RECORDS SUMMARY | 2025-11-08 16:44 | XMS_ITS | Encounter Summary ---
Author Organization [employer] ([place], [place], [place], [place], [place]) Address [address] [place] [address] Care Team Providers Care Regional Administrative Assistant Name Role Phone Morena Reese MD Primary Care Provider [phone] Encounter Details Date Type Department Care Team (Late st Contact Info) Description 12/19/2019 Transcribed Document [facility] [place] [address] [place] [address] ProviderJavier MD [address] [place], [place] [address] Social History Tobacco Use Types Packs/Day Years [...] Conversion Note - Javier Hale MD - 12/19/2019 6:45 PM AERODYNAMICS ENGINEER Nursing Discharge Summary Entered On: 12/19/2019 18:45 EST Performed On: 12/19/2019 18:45 EST by ELLIOTT ZEPEDA RN Discharge Documentation Discharge Date/Time : 12/19/2019 18:45 EST Patient Disposition, General : Discharge Discharge To : Home with ambulatory/outpatient follow-up Mode Of Departure, General Discharge : Private vehicle IV Discontinued : Yes Personal Belongings With Patient : Yes Discharge Instructions Reviewed With, Opportunity For Questions Given : Patient Patient Education Completed : Yes Teaching Method : Explanation Teaching Evaluation : Verbalizes understanding ELLIOTT ZEPEDA RN - 12/19/2019 18:45 EST Electronically signed by [facility] Conversion Chart Collector Cerner at 02/28/2023 5:57 PM CDT documented in this encounter Plan of Treatment Upcoming Encounters Date Type Department Care Team (Late st Contact Info) Description 11/25/2025 9:00 AM EST Appointment [facility] Outpatient Treatment [address] [place] [address] documented as of this encounter Visit Diagnoses Not on filedocumented in this encounter Care Teams Regional Administrative Assistant Relationship Specialty Start Date End Date Morena Reese MD [address] [phone] PCP - General General Internal Medicine 10/17/22 documented as of this encounter
--- OUTSIDE RECORDS SUMMARY | 2025-11-08 16:44 | XMS_ITS | Encounter Summary ---
Author Organization [employer] ([place], [place], [place], [place], [place]) Address [address] [place] [address] Care Team Providers Care Nozzle Cement Sprayer Helper Name Role Phone Morena Reese MD Primary Care Provider [phone] Encounter Details Date Type Department Care Team (Late st Contact Info) Description 04/09/2020 Transcribed Document [facility] [place] Family Medicine [address] [place] [address] ProviderJavier MD [address] [place] [address] Social History Tobacco Use Types Packs/Day Years [...] Conversion Note - Javier Hale MD - 04/09/2020 11:53 AM CDT Outpatient Visit History Entered On: 04/09/2020 11:58 EDT Performed On: 04/09/2020 11:53 EDT by ROSE PERDOMO Vital Measurements Temperature Source : Temporal artery scanning Temperature Mode : Fahrenheit Temperature, Fahrenheit : 98.2 Deg F Clinical Temperature, C : 36.8 Deg C Pulse Method : Pulse Oximetry Peripheral Pulse Rate : 78 bpm Respiratory Rate : 16 Breaths/Min Blood Pressure Location : Arm, right upper Blood Pressure Source : Non-Invasive BP Device Blood Pressure Position : Sitting Systolic Blood Pressure : 129 mmHg Diastolic Blood Pressure : 69 mmHg Oxygen Saturation : 98 % Oxygen Therapy Mode : Room air ROSE PERDOMO - 04/09/2020 11:53 EDT Height and Weight, Clinical Dosing Height Source : Stated Height Entry Format : [place] Height, Feet : 5 ft(Converted to: 152 cm, 60 Inch) Height, Inches : 4 Inch(Converted to: 0 ft 4 Inch, 10.16 cm) Clinical Height : 162.56 cm Weight Source : Standing scale Weight Entry Format : [place] Clinical Dosing Weight : 100 kg Weight, Pounds : 220 lb Body Surface Area (BSA) : 2.04 m2 Body Mass Index : 37.8 kg/m2 (HI) [place] Body Weight : 54 kg ROSE PERDOMO 04/09/2020 11:53 EDT Quick Look Assessment Level of Consciousness : Alert, Awake Affect/Behavior : Appropriate, Calm, Cooperative Orientation : Oriented x 4 Skin Temperature : Warm Skin Description : Dry ROSE PERDOMO 04/09/2020 11:53 EDT Health Histories Smoking Status : Former smoker, quit more than 30 days ago Smokeless Tobacco Status : Former smokeless tobacco user, quit more than 30 days ago ROSE PERDOMO 04/09/2020 11:53 EDT Social History (As Of: 04/09/2020 11:58:41 EDT) Tobacco: Former smoker, quit more than 30 days ago Smoking Status. (Last Updated: 05/08/2019 08:51:39 EDT by ROSE PERDOMO) Alcohol: Alcohol Use History Yes. Total Drinks/Week: 2. Alcohol Use Frequency Weekly. (Last Updated: 11/12/2018 09:08:53 EST by EDENILSON ANDREWS, ZUHAIR) Substance Abuse: Drug Use Hx: No. Use in Last 12 Months: No. (Last Updated: 11/12/2018 09:08:59 EST by EDENILSON ANDREWS, RN) Infectious Disease History Has the patient ever been tested for COVID-19? : No, Patient stated COVID19 Screening : No Experiencing Infectious Disease Symptoms : No symptoms Physical contact outside US in the last 30 days : No Infectious Disease Symptoms Score : 0 Infectious Disease History : None Tuberculosis Symptoms : None ROSE PERDOMO 04/09/2020 11:53 EDT Advance Directive Patient has Advance Directive *Q : Yes, Advance Directive not with the patient Advance Directive Type : Living will Copy Advance Directive Verified/on Chart : No ROSE PERDOMO 04/09/2020 11:53 EDT [place] Suicide Severity Rating Scale (C-SSRS) CSSRS Past Month Wish to be : No CSSRS Past Month Suicidal Thoughts : No CSSRS Lifetime Suicide Behavior : No Suicide Severity Rating Score : 0 Suicide Severity Rating : No Additional Care Required at this time MARIOFELIX ROSE [place] 04/09/2020 11:53 EDT Psychosocial History Chronic/Terminal Illness w/Freq Visits : No Do You Have a History of the Following? : Anxiety Currently in Unsafe Situation : No ROSE PERDOMO 04/09/2020 11:53 EDT Fall Risk Scales ABCs Fall Injury Risk Identification : None MARLEY Hx Falls Immediate/Within 3 Months : No Marley Secondary Diagnosis : Yes MARLEY Use of Ambulatory Aid : None MARLEY IV Therapy or IV Access : Yes Marley Gait/Transferring : Normal, bedrest, immobile Marley Mental Status : Oriented to own ability Marley Fall Risk Score : 35 MARLEY Fall Scale Risk Level : 25-45 Medium Risk [place] Fall Interventions : Adequate lighting, Assistive devices within reach, Bed in low position, Call device within reach, Fall prevention handout/education per facility policy, Frequent orientation to call device, Frequent orientation to surroundings, Hourly comfort/safety rounds, Non-slip footwear, Personal items within reach, Reinforced to call for assistance before getting out of bed, Room free of clutter/spills, Wheels locked, Wires/Cords secured ROSE PERDOMO 04/09/2020 11:53 EDT Pain Assessment Pain Assessment : Initial assessment Intensity : 0 ROSE PERDOMO 04/09/2020 11:53 EDT documented in this encounter Plan of Treatment Upcoming Encounters Date Type Department Care Team (Late st Contact Info) Description 11/25/2025 9:00 AM EST Appointment [facility] Outpatient Treatment [address] [place] [address] documented as of this encounter Visit Diagnoses Not on filedocumented in this encounter Care Teams Nozzle Cement Sprayer Helper Relationship Specialty Start Date End Date Morena Reese MD [address] [phone] PCP - General General Internal Medicine 10/17/22 documented as of this encounter
--- OUTSIDE RECORDS SUMMARY | 2025-11-08 16:44 | XMS_ITS | Encounter Summary ---
Author Organization [employer] ([place], [place], [place], [place], [place]) Address [address] [place] [address] Care Team Providers Care Career Services Coordinator Name Role Phone Morena Reese MD Primary Care Provider [phone] Encounter Details Date Type Department Care Team (Late st Contact Info) Description 12/19/2019 Transcribed Document [facility] [place] Family Medicine [address] [place] [address] ProviderJavier MD [address] [place], [place] [address] Social History Tobacco Use Types Packs/Day Years Used Date Smoking Tobacco: Never Assessed Comments Unknown Sex and Gender Information Value Date Recorded Sex Assigned at Female 05/10/2022 8:24 PM CDT Legal Sex Female 8:24 PM CDT Gender Identity Female 05/10/2022 8:24 PM CDT Sexual Orientation Not on file documented as of this encounter Miscellaneous Notes * Cerner Conversion Note - Javier ProviderMD - 12/19/2019 2:49 PM KENO WRITER / RUNNER Outpatient Visit History Entered On: 12/19/2019 14:52 EST Performed On: 12/19/2019 14:49 EST by ELLIOTT ZEPEDA RN Vital Measurements Temperature Source : Temporal artery scanning Temperature, Fahrenheit : 98.4 Deg F Clinical Temperature, C : 36.9 Deg C Heart Rate, Apical : 89 bpm Respiratory Rate : 16 Breaths/Min Blood Pressure Location : Arm, right upper Blood Pressure Source : Non-Invasive BP Device Blood Pressure Position : Supine Systolic Blood Pressure : 152 mmHg (HI) Diastolic Blood Pressure : 70 mmHg Oxygen Saturation : 96 % Oxygen Therapy Mode : Room air ELLIOTT ZEPEDA RN - 12/19/2019 14:49 EST Height and Weight, Clinical Dosing Height Source : Stated Height Entry Format : [place] Height, Feet : 5 ft(Converted to: 152 cm, 60 Inch) Height, Inches : 4 Inch(Converted to: 0 ft 4 Inch, 10.16 cm) Clinical Height : 162.56 cm Weight Source : Standing scale Weight Entry Format : Hale Clinical Dosing Weight : 100 kg Weight, Pounds : 220 lb Body Surface Area (BSA) : 2.04 m2 Body Mass Index : 37.8 kg/m2 (HI) [place] Body Weight : 54 kg ELLIOTT ZEPEDA RN - 12/19/2019 14:49 EST Health Histories Smoking Status : Former smoker, quit more than 30 days ago Smokeless Tobacco Status : Never ELLIOTT ZEPEDA RN - 12/19/2019 14:49 EST Social History (As Of: 12/19/2019 14:52:09 EST) Tobacco: Former smoker, quit more than 30 days ago Smoking Status. (Last Updated: 05/08/2019 08:51:39 EDT by ROSE PERDOMO) Alcohol: Alcohol Use History Yes. Total Drinks/Week: 2. Alcohol Use Frequency Weekly. (Last Updated: 11/12/2018 09:08:53 EST by EDENILSON ANDREWS, RN) Substance Abuse: Drug Use Hx: No. Use in Last 12 Months: No. (Last Updated: 11/12/2018 09:08:59 EST by EDENILSON ANDREWS, RN) Advance Directive Patient has Advance Directive *Q : Yes, Advance Directive not with the patient Advance Directive Type : Living will Copy Advance Directive Verified/on Chart : No ELLIOTT ZEPEDA RN - 12/19/2019 14:49 EST [place] Suicide Severity Rating Scale (C-SSRS) CSSRS Past Month Wish to be : No CSSRS Past Month Suicidal Thoughts : No CSSRS Lifetime Suicide Behavior : No Suicide Severity Rating Score : 0 Suicide Severity Rating : No Additional Care Required at this time ELLIOTT ZEPEDA RN - 12/19/2019 14:49 EST Psychosocial History Chronic/Terminal Illness w/Freq Visits : No Do You Have a History of the Following? : Anxiety Currently in Unsafe Situation : No ELLIOTT ZEPEDA RN - 12/19/2019 14:49 EST Fall Risk Scales ABCs Fall Injury Risk Identification : None MARLEY Hx Falls Immediate/Within 3 Months : No Marley Secondary Diagnosis : No MALREY Use of Ambulatory Aid : None MARLEY IV Therapy or IV Access : No Marley Gait/Transferring : Normal, bedrest, immobile Marley Mental Status : Oriented to own ability [place] Fall Risk Score : 0 MARLEY Fall Scale Risk Level : 0-24 Low Risk [place] Fall Interventions : Adequate lighting, Assistive devices [...] locked, Wires/Cords secured ELLIOTT ZEPEDA RN - 12/19/2019 14:49 EST documented in this encounter Plan of Treatment Upcoming Encounters Date Type Department Care Team (Late st Contact Info) Description 11/25/2025 9:00 AM EST Appointment [facility] Outpatient Treatment [address] [place] [address] documented as of this encounter Visit Diagnoses Not on filedocumented in this encounter Care Teams Career Services Coordinator Relationship Specialty Start Date End Date Morena Reese MD [address] [phone] PCP - General General Internal Medicine 10/17/22 documented as of this encounter
--- OUTSIDE RECORDS SUMMARY | 2025-11-08 16:45 | XMS_ITS | Encounter Summary ---
Author Organization [employer] ([place], [place], [place], [place], [place]) Address [address] [place] [address] Care Team Providers Care Street Light Lamp Cleaner Name Role Phone Morena Reese MD Primary Care Provider [phone] Encounter Details Date Type Department Care Team (Late st Contact Info) Description 05/08/2019 Transcribed Document [facility] [place] [address] [place] [address] ProviderJavier MD [address] [place] [address] Social History Tobacco Use Types Packs/Day Years [...] Conversion Note - Javier Hale MD - 05/08/2019 8:50 AM CDT Outpatient Visit History Entered On: 05/08/2019 8:52 EDT Performed On: 05/08/2019 8:50 EDT by ROSE PERDOMO Vital Measurements Temperature Source : Temporal artery scanning Temperature Mode : Fahrenheit Temperature, Fahrenheit : 97.7 Deg F Clinical Temperature, C : 36.5 Deg C Pulse Method : Pulse Oximetry Peripheral Pulse Rate : 89 bpm Respiratory Rate : 16 Breaths/Min Blood Pressure Location : Arm, right upper Blood Pressure Source : Non-Invasive BP Device Blood Pressure Position : Sitting Systolic Blood Pressure : 143 mmHg (HI) Diastolic Blood Pressure : 70 mmHg Oxygen Saturation : 97 % Oxygen Therapy Mode : Room air ROSE PERDOMO - 05/08/2019 8:50 EDT Height and Weight, Clinical Dosing Height Source : Stated Height Entry Format : [place] Height, Feet : 5 ft(Converted to: 152 cm, 60 Inch) Height, Inches : 4 Inch(Converted to: 0 ft 4 Inch, 10.16 cm) Clinical Height : 162.56 cm Weight Source : Standing scale Weight Entry Format : [place] Clinical Dosing Weight : 100 kg Weight, Pounds : 220 lb Body Surface Area (BSA) : 2.04 m2 Body Mass Index : 37.8 kg/m2 (HI) [place] Body Weight : 54 kg ROSE PERDOMO 05/08/2019 8:50 EDT Quick Look Assessment Level of Consciousness : Alert, Awake Affect/Behavior : Appropriate, Calm, Cooperative Orientation : Oriented x 4 Skin Temperature : Warm Skin Description : Dry ROSE PERDOMO 05/08/2019 8:50 EDT Health Histories Smoking Status : Former smoker, quit more than 30 days ago Smokeless Tobacco Status : Never ROSE PERDOMO 05/08/2019 8:50 EDT Social History (As Of: 05/08/2019 08:52:24 EDT) Tobacco: Former smoker, quit more than [...] will Copy Advance Directive Verified/on Chart : Yes ROSE PERDOMO 05/08/2019 8:50 EDT Psychosocial History Chronic/Terminal Illness w/Freq Visits : No Do You Have a History of the Following? : Anxiety Currently in Unsafe Situation : No Tried to Harm Yourself in the Past? : No Thoughts of Harming/Killing Yourself : No ROSE PERDOMO 05/08/2019 8:50 EDT Fall Risk Scales ABCs Fall Injury [...] Scale Risk Level : 25-45 Medium Risk [place] Fall Interventions : Adequate lighting, Assistive devices within reach, Bed in low position, Call device within reach, Fall prevention handout/education per facility policy, Frequent orientation to call device, Frequent orientation to surroundings, Hourly comfort/safety rounds, Non-slip footwear, Personal items within reach, Reinforced to call for assistance before getting out of bed, Room free of clutter/spills, Wheels locked, Wires/Cords secured ROSE PERDOMO 05/08/2019 8:50 EDT Pain Assessment Pain Assessment : Initial assessment Intensity : 0 ROSE PERDOMO 05/08/2019 8:50 EDT Electronically signed by [facility] Conversion Tube Bending Machine Operator Cerner at 02/28/2023 6:13 PM CDT documented in this encounter Plan of Treatment Upcoming Encounters Date Type Department Care Team (Late st Contact Info) Description 11/25/2025 9:00 AM EST Appointment [facility] Outpatient Treatment [address] [place] [address] documented as of this encounter Visit Diagnoses Not on filedocumented in this encounter Care Teams Street Light Lamp Cleaner Relationship Specialty Start Date End Date Morena Reese MD [address] [phone] PCP - General General Internal Medicine 10/17/22 documented as of this encounter
--- OUTSIDE RECORDS SUMMARY | 2025-11-08 16:45 | XMS_ITS | Encounter Summary ---
Author Organization [employer] ([place], [place], [place], [place], [place]) Address [address] [place] [address] Care Team Providers Care Hedge Fund Manager Name Role Phone Morena Reese MD Primary Care Provider [phone] Encounter Details Date Type Department Care Team (Late st Contact Info) Description 04/13/2021 Transcribed Document [facility] [place] [address] [place] [address] ProviderJavier MD [address] [place], [place] [address] Social History Tobacco Use Types Packs/Day Years [...] Conversion Note - Javier Hale MD - 04/13/2021 1:14 PM CDT Outpatient Visit History Entered On: 04/13/2021 13:17 EDT Performed On: 04/13/2021 13:14 EDT by GALLITO RODARTE RN Vital Measurements Temperature Source : Temporal artery scanning Temperature Mode : Fahrenheit Temperature, Fahrenheit : 97.2 Deg F Clinical Temperature, C : 36.2 Deg C Pulse Method : Non-Invasive BP Device Peripheral Pulse Rate : 100 bpm Respiratory Rate : 20 Breaths/Min Blood Pressure Location : Arm, right upper Blood Pressure Source : Non-Invasive BP Device Blood Pressure Position : Sitting Systolic Blood Pressure : 128 mmHg Diastolic Blood Pressure : 64 mmHg Oxygen Saturation : 95 % Oxygen Therapy Mode : Room air GALLITO RODARTE RN - 04/13/2021 13:14 EDT Height and Weight, Clinical Dosing Height Source : Chart Height Entry Format : [place] Height, Feet : 5 ft(Converted to: 152 cm, 60 Inch) Height, Inches : 4 Inch(Converted to: 0 ft 4 Inch, 10.16 cm) Clinical Height : 162.56 cm Weight Source : Standing scale Weight Entry Format : [place] Clinical Dosing Weight : 100 kg Weight, Pounds : 220 lb Body Surface Area (BSA) : 2.04 m2 Body Mass Index : 37.8 kg/m2 (HI) [place] Body Weight : 54 kg GALLITO RODARTE RN - 04/13/2021 13:14 EDT Quick Look Assessment Level of Consciousness : Alert Affect/Behavior : Anxious Orientation : Oriented x 4 Skin Temperature : Warm Skin Description : Normal for ethnicity GALLITO RODARTE RN - 04/13/2021 13:14 EDT Health Histories Smoking Status : Former smoker, quit more than 30 days ago Smokeless Tobacco Status : Never GALLITO RODARTE RN - 04/13/2021 13:14 EDT Social History (As Of: 04/13/2021 13:17:25 EDT) Tobacco: Former smoker, quit more than 30 days ago Smoking Status. (Last Updated: 05/08/2019 08:51:39 EDT by ROSE PERDOMO) Alcohol: Alcohol Use History Yes. Total Drinks/Week: 2. Alcohol Use Frequency Weekly. (Last Updated: 11/12/2018 09:08:53 EST by EDENILSON ANDREWS, ZUHAIR) Substance Abuse: Drug Use Hx: No. Use in Last 12 Months: No. (Last Updated: 11/12/2018 09:08:59 EST by EDENILSON ANDREWS, ZUHAIR) Infectious Disease History Has the patient ever been tested for COVID-19? : No, Patient stated Does patient have symptoms of COVID-19? : No COVID19 Screening : No Experiencing Infectious Disease Symptoms : No symptoms Physical contact outside US in the last 30 days : No Infectious Disease History : Chicken pox/Shingles, Measles, Mumps Tuberculosis Symptoms : None GALLITO RODARTE RN - 04/13/2021 13:14 EDT COVID19 PreProcedure Screening Is this an Emergent or Add on Procedure? : No Date PreProcedure COVID-19 test known? : No Has patient been isolated since the test : No Exposed to COVID19 symptoms since test? : No GALLITO RODARTE RN - 04/13/2021 13:14 EDT Advance Directive Patient has Advance Directive *Q : No, patient refuses Advance Directive information GALLITO RODARTE RN - 04/13/2021 13:14 EDT [place] Suicide Severity Rating Scale (C-SSRS) CSSRS Past Month Wish to be : No CSSRS Past Month Suicidal Thoughts : No CSSRS Lifetime Suicide Behavior : No Suicide Severity Rating Score : 0 Suicide Severity Rating : No Additional Care Required at this time GALLITO RODARTE RN - 04/13/2021 13:14 EDT Psychosocial History Does Someone Depend on You for Care? : No Chronic/Terminal Illness w/Freq Visits : No Do You Have a History of the Following? : Anxiety Currently in Unsafe Situation : No GALLITO RODARTE RN - 04/13/2021 13:14 EDT Fall Risk Scales ABCs Fall Injury [...] Scale Risk Level : 0-24 Low Risk [place] Fall Interventions : Adequate lighting, Assistive devices within reach, Bed in low position, Call device within reach, Frequent orientation to call device, Frequent orientation to surroundings, Hourly comfort/safety rounds, Non-slip footwear, Personal items within reach, Room free of clutter/spills, Wheels locked, Wires/Cords secured GALLITO RODARTE RN - 04/13/2021 13:14 EDT Pain Assessment Pain Assessment : Initial assessment Intensity : 0 GALLITO RODARTE RN - 04/13/2021 13:14 EDT documented in this encounter Plan of Treatment Upcoming Encounters Date Type Department Care Team (Late st Contact Info) Description 11/25/2025 9:00 AM EST Appointment [facility] Outpatient Treatment [address] [place] [phone] documented as of this encounter Visit Diagnoses Not on filedocumented in this encounter Care Teams Hedge Fund Manager Relationship Specialty Start Date End Date Morena Reese MD [address] [phone] PCP - General General Internal Medicine 10/17/22 documented as of this encounter
--- OUTSIDE RECORDS SUMMARY | 2025-11-08 16:45 | XMS_ITS | Encounter Summary ---
Author Organization [employer] ([place], [place], [place], [place], [place]) Address [address] [place] [address] Care Team Providers Care Brown Sourer Name Role Phone Morena Reese MD Primary Care Provider [phone] Encounter Details Date Type Department Care Team (Late st Contact Info) Description 11/09/2021 Transcribed Document [facility] [place] Family Medicine [address] [place] [address] ProviderJavier MD [address] [place], [place] [address] Social History Tobacco Use Types Packs/Day Years [...] Conversion Note - Javier Hale MD - 11/09/2021 1:10 PM MECHANICAL ENGINEERING PROFESSOR Outpatient Visit History Entered On: 11/09/2021 13:34 EST Performed On: 11/09/2021 13:10 EST by GALLITO RODARTE RN Vital Measurements Temperature Source : Temporal artery scanning Temperature Mode : Fahrenheit Temperature, Fahrenheit : 97.1 Deg F Clinical Temperature, C : 36.2 Deg C Pulse Method : Non-Invasive BP Device Peripheral Pulse Rate : 90 bpm Blood Pressure Location : Arm, right upper Blood Pressure Source : Non-Invasive BP Device Blood Pressure Position : Sitting Systolic Blood Pressure : 102 mmHg Diastolic Blood Pressure : 52 mmHg (LOW) Oxygen Saturation : 95 % Oxygen Therapy Mode : Room air GALLITO RODARTE RN - 11/09/2021 13:31 EST Height and Weight, Clinical Dosing Height Source : Chart Height Entry Format : [place] Height, Feet : 5 ft(Converted to: 152 cm, 60 Inch) Height, Inches : 3 Inch(Converted to: 0 ft 3 Inch, 7.62 cm) Clinical Height : 160.02 cm Weight Source : Standing scale Weight Entry Format : [place] Clinical Dosing Weight : 100 kg Weight, Pounds : 220 lb Body Surface Area (BSA) : 2.02 m2 Body Mass Index : 39.1 kg/m2 (HI) [place] Body Weight : 52 kg GALLITO RODARTE RN - 11/09/2021 13:31 EST Quick Look Assessment Level of Consciousness : Alert Affect/Behavior : Calm Orientation : Oriented x 4 Skin Temperature : Warm Skin Description : Normal for ethnicity GALLITO RODARTE RN - 11/09/2021 13:31 EST Health Histories Smoking Status : Former smoker, quit more than 30 days ago Smokeless Tobacco Status : Never AGLLITO RODARTE RN - 11/09/2021 13:31 EST Social History (As Of: 11/09/2021 13:34:05 EST) Tobacco: Former smoker, quit more than 30 days ago Smoking Status. (Last Updated: 05/08/2019 08:51:39 EDT by ROSE PERDOMO) Alcohol: Alcohol Use History Yes. Total Drinks/Week: 2. Alcohol Use Frequency Weekly. (Last Updated: 11/12/2018 09:08:53 EST by EDENILSON ANDREWS, ZUAHIR) Substance Abuse: Drug Use Hx: No. Use in Last 12 Months: No. (Last Updated: 11/12/2018 09:08:59 EST by EDENILSON ANDREWS, ZUHAIR) Infectious Disease History Does patient have symptoms of COVID-19? : No Has the Patient Been Tested for COVID-19 in the last 14 days? : No, Patient stated Does the Patient state known exposure to a COVID-19 positive case in the last 14 days? : No Patient Vaccinated for COVID-19 : Fully vaccinated GALLITO RODARTE RN - 11/09/2021 13:31 EST Infectious Disease Risk Screening Grid Cough < 2 wks of unknown origin : NO Cough > 2 weeks : NO Blood in Sputum : NO Fever or self-reported Fever : NO Rash of unknown origin : NO Headache : NO Stiff neck : NO Night Sweats : NO Unexplained Weight Loss : NO Diarrhea (3 episode per day) : NO GALLITO RODARTE RN - 11/09/2021 13:31 EST Physical contact outside [place] in the last 30 days : No Hospitalized in Foreign Country : No Infectious Disease History : Chicken pox/Shingles, Measles, Mumps INF Disease TB Screening Calc : 0 INF Disease Recent Travel Calc : 0 GALLITO RODARTE RN - 11/09/2021 13:31 EST COVID19 PreProcedure Screening Is this an Emergent or Add on Procedure? : No Date PreProcedure COVID-19 test known? : No Has patient been isolated since the test : No Exposed to COVID19 symptoms since test? : No GALLITO RODARTE RN - 11/09/2021 13:31 EST Advance Directive Patient has Advance Directive *Q : Yes, Advance Directive on file Advance Directive Type : Living will Copy Advance Directive Verified/on Chart : No GALLITO RODARTE RN - 11/09/2021 13:31 EST [place] Suicide Severity Rating Scale (C-SSRS) CSSRS Past Month Wish to be : No CSSRS Past Month Suicidal Thoughts : No CSSRS Lifetime Suicide Behavior : No Suicide Severity Rating Score : 0 Suicide Severity Rating : No Additional Care Required at this time GALLITO RODARTE RN - 11/09/2021 13:31 EST Psychosocial History Does Someone Depend on You for Care? : No Chronic/Terminal Illness w/Freq Visits : No Do You Have a History of the Following? : Anxiety Currently in Unsafe Situation : No GALLITO RODARTE RN - 11/09/2021 13:31 EST Fall Risk Scales ABCs Fall Injury [...] Scale Risk Level : 0-24 Low Risk [place] Fall Interventions : Adequate lighting, Call device within reach, Frequent orientation to call device, Frequent orientation to surroundings, Hourly comfort/safety rounds, Non-slip footwear, Personal items within reach, Room free of clutter/spills, Wheels locked, Wires/Cords secured GALLITO RODARTE RN - 11/09/2021 13:31 EST Pain Assessment Pain Assessment : Initial assessment Intensity : 0 GALLITO RODARTE RN - 11/09/2021 13:31 EST documented in this encounter Plan of Treatment Upcoming Encounters Date Type Department Care Team (Late st Contact Info) Description 11/25/2025 9:00 AM EST Appointment [facility] Outpatient Treatment [address] [place] [address] documented as of this encounter Visit Diagnoses Not on filedocumented in this encounter Care Teams Brown Sourer Relationship Specialty Start Date End Date Morena Reese MD [address] [address] PCP - General General Internal Medicine 10/17/22 documented as of this encounter
--- OUTSIDE RECORDS SUMMARY | 2025-11-08 16:45 | XMS_ITS | Encounter Summary ---
Author Organization [employer] ([place], [place], [place], [place], [place]) Address [address] [place] [address] Care Team Providers Care Test Engine Mechanic Name Role Phone Morena Reese MD Primary Care Provider [phone] Encounter Details Date Type Department Care Team (Late st Contact Info) Description 10/28/2020 Transcribed Document [facility] [place] [address] [place] [address] ProviderJavier MD [address] [place] [address] Social History Tobacco Use Types Packs/Day Years Used Date Smoking Tobacco: Never Assessed Comments Unknown Sex and Gender Information Value Date Recorded Sex Assigned at Female 05/10/2022 8:24 PM CDT Legal Sex Female 8:24 PM CDT Gender Identity Female 05/10/2022 8:24 PM CDT Sexual Orientation Not on file documented as of this encounter Miscellaneous Notes * Cerner Conversion Note - Javier ProviderMD - 10/28/2020 9:12 AM HIV CTS SPECIALIST Outpatient Visit History Entered On: 10/28/2020 9:16 EST Performed On: 10/28/2020 9:12 EST by BONIFACIO LONGORIA RN Vital Measurements Temperature Source : Temporal artery scanning Temperature Mode : Fahrenheit Temperature, Fahrenheit : 97.4 Deg F Clinical Temperature, C : 36.3 Deg C Pulse Method : Pulse Oximetry Peripheral Pulse Rate : 88 bpm Respiratory Rate : 16 Breaths/Min Blood Pressure Location : Arm, right upper Blood Pressure Source : Non-Invasive BP Device Systolic Blood Pressure : 133 mmHg Diastolic Blood Pressure : 69 mmHg Oxygen Saturation : 97 % Oxygen Therapy Mode : Room air BONIFACIO LONGORIA RN - 10/28/2020 9:12 EST Height and Weight, Clinical Dosing Height Source : Stated Height Entry Format : [place] Height, Feet : 5 ft(Converted to: 152 cm, 60 Inch) Height, Inches : 4 Inch(Converted to: 0 ft 4 Inch, 10.16 cm) Clinical Height : 162.56 cm Weight Source : Standing scale Weight Entry Format : [place] Clinical Dosing Weight : 100 kg Weight, Pounds : 220 lb Body Surface Area (BSA) : 2.04 m2 Body Mass Index : 37.8 kg/m2 (HI) [place] Body Weight : 54 kg BONIFACIO LONGORIA RN - 10/28/2020 9:12 EST Health Histories Smoking Status : Former smoker, quit more than 30 days ago Smokeless Tobacco Status : Never BONIFACIO LONGORIA RN - 10/28/2020 9:12 EST Social History (As Of: 10/28/2020 09:16:01 EST) Tobacco: Former smoker, quit more than [...] pox/Shingles, Measles, Mumps Tuberculosis Symptoms : None BONIFACIO LONGORIA RN - 10/28/2020 9:12 EST COVID19 PreProcedure Screening Is this an Emergent or Add on Procedure? : No Date PreProcedure COVID-19 test known? : No Has patient been isolated since the test : N/A - PreProcedure, in-person visit Exposed to COVID19 symptoms since test? : N/A - PreProcedure, in-person visit BONIFACIO LONGORIA RN - 10/28/2020 9:12 EST Advance Directive Patient has Advance Directive *Q : No, patient refuses Advance Directive information BONIFACIO LONGORIA RN - 10/28/2020 9:12 EST [place] Suicide Severity Rating Scale (C-SSRS) CSSRS Past Month Wish to be : No CSSRS Past Month Suicidal Thoughts : No CSSRS Lifetime Suicide Behavior : No Suicide Severity Rating Score : 0 Suicide Severity Rating : No Additional Care Required at this time BONIFACIO LONGORIA RN - 10/28/2020 9:12 EST Psychosocial History Chronic/Terminal Illness w/Freq Visits : No Do You Have a History of the Following? : Anxiety Currently in Unsafe Situation : No BONIFACIO LONGORIA RN - 10/28/2020 9:12 EST Fall Risk Scales ABCs Fall Injury Risk Identification : None MARLEY Hx Falls Immediate/Within 3 Months : No Marley Secondary Diagnosis : Yes MARLEY Use of Ambulatory Aid : None MAR[place] IV Therapy or IV Access : No [place] Gait/Transferring : Normal, bedrest, immobile [place] Mental Status : Oriented to own ability [place] Fall Risk Score : 15 [place] Fall Scale Risk Level : 0-24 Low Risk [place] Fall Interventions : Adequate lighting, Bed in low position, Call device within reach, Wheels locked BONIFACIO LONGORIA RN - 10/28/2020 9:12 EST Pain Assessment Pain Assessment : Initial assessment Intensity : 0 BONIFACIO LONGORIA RN - 10/28/2020 9:12 EST Electronically signed by [place] [facility] Conversion Car Lot Attendant Cerner at 02/28/2023 5:59 PM CDT documented in this encounter Plan of Treatment Upcoming Encounters Date Type Department Care Team (Late st Contact Info) Description 11/25/2025 9:00 AM EST Appointment [facility] Outpatient Treatment [address] [place] [address] documented as of this encounter Visit Diagnoses Not on filedocumented in this encounter Care Teams Test Engine Mechanic Relationship Specialty Start Date End Date Morena Reese MD [address] [address] PCP - General General Internal Medicine 10/17/22 documented as of this encounter
--- OUTSIDE RECORDS SUMMARY | 2025-11-08 16:45 | XMS_ITS | Encounter Summary ---
Author Organization [employer] ([place], [place], [place], [place], [place]) Address [address] [place] [address] Care Team Providers Care Director Of Managed Care Name Role Phone Morena Reese MD Primary Care Provider Encounter Details Date Type Department Care Team (Late st Contact Info) Description 09/17/2020 Transcribed Document [facility] [place] [address] [place] [address] ProviderJavier MD [address] [place] [address] Social History Tobacco Use Types Packs/Day Years [...] Conversion Note - Javier Hale MD - 09/17/2020 1:46 PM DIRECTOR OF [facility] Nursing Discharge Summary Entered On: 09/17/2020 13:47 EST Performed On: 09/17/2020 13:46 EST by GALLITO RODARTE load manager Documentation Discharge Date/Time : 09/17/2020 13:46 EST Patient Disposition, General : Discharge Discharge [...] Verbalizes understanding Education Comment : Return in 6 weeks GALLITO RODARTE RN - 09/17/2020 13:46 EST Electronically signed by [place], [facility] Conversion Imaging Assistant Cerner at 02/28/2023 6:12 PM CDT documented in this encounter Plan of Treatment Upcoming Encounters Date Type Department Care Team (Late st Contact Info) Description 11/25/2025 9:00 AM EST Appointment [facility] Outpatient Treatment [address] [place] [address] documented as of this encounter Visit Diagnoses Not on filedocumented in this encounter Care Teams Director Of Managed Care Relationship Specialty Start Date End Date Morena Reese MD [address] [phone] PCP - General General Internal Medicine 10/17/22 documented as of this encounter
--- OUTSIDE RECORDS SUMMARY | 2025-11-08 16:45 | XMS_ITS | Encounter Summary ---
Author Organization [employer] ([place], [place], [place], [place], [place]) Address [address] [place] [address] Care Team Providers Care Conditioner Tender Name Role Phone Morena Reese MD Primary Care Provider [phone] Encounter Details Date Type Department Care Team (Late st Contact Info) Description 07/03/2019 Transcribed Document [facility] [place] Medicine [address] [place] [address] ProviderJavier MD [address] [place] [address] Social History Tobacco Use Types Packs/Day Years [...] Conversion Note - Javier Hale MD - 07/03/2019 9:13 AM CDT Outpatient Visit History Entered On: 07/03/2019 9:16 EDT Performed On: 07/03/2019 9:13 EDT by GALLITO RODARTE RN Vital Measurements Temperature Source : Temporal artery scanning Temperature Mode : Fahrenheit Temperature, Fahrenheit : 98 Deg F Clinical Temperature, C : 36.7 Deg C Pulse Method : Non-Invasive BP Device Peripheral Pulse Rate : 96 bpm Blood Pressure Location : Arm, right upper Blood Pressure Source : Non-Invasive BP Device Blood Pressure Position : Sitting Systolic Blood Pressure : 154 mmHg (HI) Diastolic Blood Pressure : 74 mmHg Oxygen Saturation : 95 % Oxygen Therapy Mode : Room air GALLITO RODARTE RN - 07/03/2019 9:13 EDT Height and Weight, Clinical Dosing Height Source : Chart Height Entry Format : [place] Height, Feet : 5 ft(Converted to: 152 cm, 60 Inch) Height, Inches : 4 Inch(Converted to: 0 ft 4 Inch, 10.16 cm) Clinical Height : 162.56 cm Weight Source : Standing scale Weight Entry Format : [place] Clinical Dosing Weight : 100 kg Weight, Pounds : 220 lb Body Surface Area (BSA) : 2.04 m2 Body Mass Index : 37.8 kg/m2 (HI) [place] Body Weight : 54 kg GALLITO RODARTE RN - 07/03/2019 9:13 EDT Quick Look Assessment Level of Consciousness : Alert Affect/Behavior : Anxious Orientation : Oriented x 4 Skin Temperature : Warm Skin Description : Normal for ethnicity GALLITO RODARTE RN - 07/03/2019 9:13 EDT Health Histories Smoking Status : Former smoker, quit more than 30 days ago Smokeless Tobacco Status : Never GALLITO RODARTE RN - 07/03/2019 9:13 EDT Social History (As Of: 07/03/2019 09:16:32 EDT) Tobacco: Former smoker, quit more than [...] Advance Directive information GALLITO RODARTE RN - 07/03/2019 9:13 EDT Psychosocial History Does Someone Depend on You for Care? : No Chronic/Terminal Illness w/Freq Visits : No Do You Have a History of the Following? : Anxiety Currently in Unsafe Situation : No Tried to Harm Yourself in the Past? : No Thoughts of Harming/Killing Yourself : No GALLITO ROADRTE RN - 07/03/2019 9:13 EDT Fall Risk Scales ABCs Fall Injury [...] Scale Risk Level : 0-24 Low Risk [place] Fall Interventions : Adequate lighting, Bed in low position, Call device within reach, Frequent orientation to call device, Frequent orientation to surroundings, Hourly comfort/safety rounds, Non-slip footwear, Personal items within reach, Reinforced to call for assistance before getting out of bed, Room free of clutter/spills, Wheels locked, Wires/Cords secured GALLITO RODARTE RN - 07/03/2019 9:13 EDT Pain Assessment Pain Assessment : Initial assessment Intensity : 0 Pain Location Comment : C/O back pain while walking GALLITO RODARTE RN - 07/03/2019 9:13 EDT Electronically signed by [place] [facility] Conversion Knocker Off Cerner at 02/28/2023 6:19 PM CDT documented in this encounter Plan of Treatment Upcoming Encounters Date Type Department Care Team (Late st Contact Info) Description 11/25/2025 9:00 AM EST Appointment [facility] Outpatient Treatment [address] [place] [address] documented as of this encounter Visit Diagnoses Not on filedocumented in this encounter Care Teams Conditioner Tender Relationship Specialty Start Date End Date Morena Reese MD [address] [address] PCP - General General Internal Medicine 10/17/22 documented as of this encounter
--- OUTSIDE RECORDS SUMMARY | 2025-11-08 16:45 | XMS_ITS | Encounter Summary ---
Author Organization [employer] ([place], [place], [place], [place], [place]) Address [address] [place] [address] Care Team Providers Care Lace Finisher Name Role Phone Morena Reese MD Primary Care Provider [phone] Encounter Details Date Type Department Care Team (Late st Contact Info) Description 03/04/2019 Transcribed Document [facility] [place] [address] [place] [address] ProviderJavier MD [address] [place] [address] Social History Tobacco Use Types Packs/Day Years [...] Conversion Note - Javier Hale MD - 03/04/2019 11:58 AM CDT Nursing Discharge Summary Entered On: 03/04/2019 11:59 EDT Performed On: 03/04/2019 11:58 EDT by BONIFACIO LONGORIA RN Discharge Documentation Discharge Date/Time : 03/04/2019 11:59 EDT Patient Disposition, General : Discharge Discharge To : Home with ambulatory/outpatient follow-up Mode Of Departure, General Discharge : Ambulatory Accompanied By, Discharge : Unaccompanied IV Discontinued : Yes Personal Belongings With Patient : Yes Discharge Instructions Reviewed With, Opportunity For Questions Given : Patient Teaching Method : Explanation Teaching Evaluation : Verbalizes understanding BONIFACIO LONGORIA RN - 03/04/2019 11:58 EDT Electronically signed by [place] [facility] Conversion Field Interviewer Cerner at 02/28/2023 6:22 PM CDT documented in this encounter Plan of Treatment Upcoming Encounters Date Type Department Care Team (Late st Contact Info) Description 11/25/2025 9:00 AM EST Appointment [facility] Outpatient Treatment [address] [place] [address] documented as of this encounter Visit Diagnoses Not on filedocumented in this encounter Care Teams Lace Finisher Relationship Specialty Start Date End Date Morena Reese MD [address] [address] PCP - General General Internal Medicine 10/17/22 documented as of this encounter
--- OUTSIDE RECORDS SUMMARY | 2025-11-08 16:45 | XMS_ITS | Encounter Summary ---
Author Organization [employer] ([place], [place], [place], [place], [place]) Address [address] [place] [address] Care Team Providers Care Production Control Coordinating Clerk Name Role Phone Morena Reese MD Primary Care Provider [phone] Encounter Details Date Type Department Care Team (Late st Contact Info) Description 05/08/[address] [facility] [place] [address] [place] [address] ProviderJavier MD [address] [place] [address] Social History Tobacco Use Types Packs/Day Years [...] Note - Javier Hale MD - 05/08/2019 10:59 AM CDT Nursing Discharge Summary Entered On: 05/08/2019 11:05 EDT Performed On: 05/08/2019 10:59 EDT by TERRANCE ELIAS rust proofer Documentation Discharge Date/Time : 05/08/2019 11:04 EDT Patient Disposition, General : Discharge Discharge To : Home with ambulatory/outpatient follow-up Mode Of Departure, General Discharge : Ambulatory, Private vehicle Accompanied By, Discharge : Unaccompanied IV Discontinued : Yes Medications Given to Patient : Yes Personal Belongings With Patient : Yes Prescriptions Given to Patient : No Discharge Instructions Reviewed With, Opportunity For Questions Given : Patient Patient Education Completed : Yes Teaching Method : Explanation Teaching Evaluation : Verbalizes understanding TERRANCE ELIAS RN - 05/08/2019 10:59 EDT Electronically signed by [place] [facility] Conversion Automated Manufacturing Instructor Cerner at 02/28/2023 6:01 PM CDT documented in this encounter Plan of Treatment Upcoming Encounters Date Type Department Care Team (Late st Contact Info) Description 11/25/2025 9:00 AM EST Appointment [facility] Outpatient Treatment [address] [place] [address] documented as of this encounter Visit Diagnoses Not on filedocumented in this encounter Care Teams Production Control Coordinating Clerk Relationship Specialty Start Date End Date Morena Reese MD [address] [address] PCP - General General Internal Medicine 10/17/22 documented as of this encounter
--- OUTSIDE RECORDS SUMMARY | 2025-11-08 16:45 | XMS_ITS | Encounter Summary ---
Author Organization [employer] ([place], [place], [place], [place], [place]) Address [address] [place] [address] Care Team Providers Care Sales Counselor Name Role Phone Morena Reese MD Primary Care Provider [phone] Encounter Details Date Type Department Care Team (Late st Contact Info) Description 03/03/2021 Transcribed Document [facility] [place] [address] [place] [address] ProviderJavier MD [address], [place] [address] Social History Tobacco Use Types Packs/Day Years Used Date Smoking Tobacco: Never Assessed Comments Unknown Sex and Gender Information Value Date Recorded Sex Assigned at Female 05/10/2022 8:24 PM CDT Legal Sex Female 8:24 PM CDT Gender Identity Female 05/10/2022 8:24 PM CDT Sexual Orientation Not on file documented as of this encounter Miscellaneous Notes * Cerner Conversion Note - Javier ProviderMD - 03/03/2021 12:30 PM CDT Nursing Discharge Summary Entered On: 03/03/2021 12:29 EDT Performed On: 03/03/2021 12:30 EDT by GALLITO RODARTE tariff counsel Documentation Discharge Date/Time : 03/03/2021 12:30 EDT Patient Disposition, General : Discharge [...] in 6 weeks GALLITO RODARTE RN - 03/03/2021 12:29 EDT Electronically signed by [place] [facility] Conversion Checkout Supervisor Cerner at 02/28/2023 6:07 PM CDT documented in this encounter Plan of Treatment Upcoming Encounters Date Type Department Care Team (Late st Contact Info) Description 11/25/2025 9:00 AM EST Appointment [facility] Outpatient Treatment [address] [place] [address] documented as of this encounter Visit Diagnoses Not on filedocumented in this encounter Care Teams Sales Counselor Relationship Specialty Start Date End Date Morena Reese MD [address] [address] PCP - General General Internal Medicine 10/17/22 documented as of this encounter
--- OUTSIDE RECORDS SUMMARY | 2025-11-08 16:45 | XMS_ITS | Encounter Summary ---
Author Organization [employer] ([place], [place], [place], [place], [place]) Address [address] [place] [address] Care Team Providers Care Gas Systems Worker Name Role Phone Morena Reese MD Primary Care Provider [phone] Encounter Details Date Type Department Care Team (Late st Contact Info) Description 03/04/2019 Transcribed Document [facility] [place] Family Medicine [address] [place] [address] ProviderJavier MD [address] [place] [address] Social History Tobacco Use Types Packs/Day Years Used Date Smoking Tobacco: Never Assessed Comments Unknown Sex and Gender Information Value Date Recorded Sex Assigned at Female 05/10/2022 8:24 PM CDT Legal Sex Female 8:24 PM CDT Gender Identity Female 05/10/2022 8:24 PM CDT Sexual Orientation Not on file documented as of this encounter Miscellaneous Notes * Cerner Conversion Note - Javier ProviderMD - 03/04/2019 9:02 AM CDT Outpatient Visit History Entered On: 03/04/2019 9:04 EDT Performed On: 03/04/2019 9:02 EDT by REYNOLD SALEEM RN Vital Measurements Temperature Source : Temporal artery scanning Temperature Mode : Fahrenheit Temperature, Fahrenheit : 97.7 Deg F Clinical Temperature, C : 36.5 Deg C Peripheral Pulse Rate : 86 bpm Respiratory Rate : 18 Breaths/Min Systolic Blood Pressure : 188 mmHg (HI) Diastolic Blood Pressure : 70 mmHg Oxygen Saturation : 95 % REYNOLD SALEEM RN - 03/04/2019 9:02 EDT Height and Weight, Clinical Dosing Height Source : Stated Height Entry Format : [place] Height, Feet : 5 ft(Converted to: 152 cm, 60 Inch) Height, Inches : 4 Inch(Converted to: 0 ft 4 Inch, 10.16 cm) Clinical Height : 162.56 cm Weight Source : Standing scale Weight Entry Format : [place] Clinical Dosing Weight : 99.09 kg Weight, Pounds : 218 lb Body Surface Area (BSA) : 2.03 m2 Body Mass Index : 37.5 kg/m2 (HI) [place] Body Weight : 54 kg REYNOLD SALEEM RN - 03/04/2019 9:02 EDT Quick Look Assessment Level of Consciousness : Alert Affect/Behavior : Appropriate Orientation : Oriented x 4 Skin Temperature : Warm Skin Description : Dry REYNOLD SALEEM RN - 03/04/2019 9:02 EDT Health Histories Smoking Status : Never (less than 100 in lifetime; none in last 30 days) Smokeless Tobacco Status : Never REYNOLD SALEEM RN - 03/04/2019 9:02 EDT Social History (As Of: 03/04/2019 09:04:19 EDT) Tobacco: Never Smokeless Tobacco Status. (Last Updated: 11/12/2018 09:08:33 EST by EDENILSON ANDREWS, ZUHAIR) Alcohol: Alcohol Use History Yes. Total Drinks/Week: 2. Alcohol Use Frequency Weekly. (Last Updated: 11/12/2018 09:08:53 EST by EDENILSON ANDREWS, RN) Substance Abuse: Drug Use Hx: No. Use in Last 12 Months: No. (Last Updated: 11/12/2018 09:08:59 EST by EDENILSON ANDREWS, RN) Advance Directive Patient has Advance Directive *Q : No, patient refuses Advance Directive information REYNOLD SALEEM RN - 03/04/2019 9:02 EDT Psychosocial History Chronic/Terminal Illness w/Freq Visits : No Do You Have a History of the Following? : Anxiety Currently in Unsafe Situation : No Tried to Harm Yourself in the Past? : No Thoughts of Harming/Killing Yourself : No REYNOLD SALEEM RN - 03/04/2019 9:02 EDT Fall Risk Scales ABCs Fall Injury [...] Scale Risk Level : 25-45 Medium Risk [place] Fall Interventions : Adequate lighting, Assistive devices within reach, Bed in low position, Call device within reach, Fall prevention handout/education per facility policy, Frequent orientation to call device, Frequent orientation to surroundings, Hourly comfort/safety rounds, Non-slip footwear, Personal items within reach, Reinforced to call for assistance before getting out of bed, Room free of clutter/spills, Upper side-rails up, Wheels locked, Wires/Cords secured REYNOLD SALEEM RN - 03/04/2019 9:02 EDT Electronically signed by [facility] Conversion Department Head Cerner at 02/28/2023 6:11 PM CDT documented in this encounter Plan of Treatment Upcoming Encounters Date Type Department Care Team (Late st Contact Info) Description 11/25/2025 9:00 AM EST Appointment [facility] Outpatient Treatment [address] [place] [address] documented as of this encounter Visit Diagnoses Not on filedocumented in this encounter Care Teams Gas Systems Worker Relationship Specialty Start Date End Date Morena Reese MD [address] [phone] PCP - General General Internal Medicine 10/17/22 documented as of this encounter
--- OUTSIDE RECORDS SUMMARY | 2025-11-08 16:45 | XMS_ITS | Encounter Summary ---
Author Organization [employer] ([place], [place], [place], [place], [place]) Address [address] [place] [address] Care Team Providers Care Manager Shell Name Role Phone Morena Reese MD Primary Care Provider [phone] Encounter Details Date Type Department Care Team (Late st Contact Info) Description 07/03/2019 Transcribed Document [facility] [place] Family Medicine [address] [place] [address] ProviderJavier MD [address] [place] [address] Social History Tobacco Use Types Packs/Day Years [...] Note - Javier Hale MD - 07/03/2019 12:25 PM CDT Nursing Discharge Summary Entered On: 07/03/2019 12:29 EDT Performed On: 07/03/2019 12:25 EDT by GALLITO RODARTE RN Discharge Documentation Discharge Date/Time : 07/03/2019 12:25 EDT Patient Disposition, General : Discharge Discharge [...] in 8 weeks GALLITO RODARTE RN - 07/03/2019 12:28 EDT documented in this encounter Plan of Treatment Upcoming Encounters Date Type Department Care Team (Late st Contact Info) Description 11/25/2025 9:00 AM EST Appointment [facility] Outpatient Treatment [address] [place] [address] documented as of this encounter Visit Diagnoses Not on filedocumented in this encounter Care Teams Manager Shell Relationship Specialty Start Date End Date Morena Reese MD [address] [phone] PCP - General General Internal Medicine 10/17/22 documented as of this encounter
--- OUTSIDE RECORDS SUMMARY | 2025-11-08 16:45 | XMS_ITS | Encounter Summary ---
Author Organization [employer] ([place], [place], [place], [place], [place]) Address [address] [place] [address] Care Team Providers Care Drafter Marine Name Role Phone Morena Reese MD Primary Care Provider [phone] Encounter Details Date Type Department Care Team (Late st Contact Info) Description 01/07/2019 Transcribed Document [facility] [place] Family Medicine [address] [place] [address] ProviderJavier MD [address] [place] [address] Social History Tobacco Use Types Packs/Day Years [...] Conversion Note - Javier Hale MD - 01/07/2019 10:04 AM FLOWER PICKER Outpatient Visit History Entered On: 01/07/2019 10:07 EST Performed On: 01/07/2019 10:04 EST by EDENILSON ANDREWS, RN Vital Measurements Temperature Source : Temporal artery scanning Temperature Mode : Fahrenheit Temperature, Fahrenheit : 98.1 Deg F Clinical Temperature, C : 36.7 Deg C Pulse Method : Non-Invasive BP Device Pulse Source : Brachial, Right Peripheral Pulse Rate : 84 bpm Respiratory Rate : 16 Breaths/Min Blood Pressure Location : Arm, right upper Blood Pressure Source : Non-Invasive BP Device Blood Pressure Position : Supine Systolic Blood Pressure : 147 mmHg (HI) Diastolic Blood Pressure : 85 mmHg Oxygen Saturation : 96 % Oxygen Therapy Mode : Room air EDENILSON ANDREWS RN - 01/07/2019 10:04 EST Height and Weight, Clinical Dosing Height Source : Chart Height Entry Format : [place] Height, Feet : 5 ft(Converted to: 152 cm, 60 Inch) Height, Inches : 4 Inch(Converted to: 0 ft 4 Inch, 10.16 cm) Clinical Height : 162.56 cm Weight Source : Standing scale Weight Entry Format : [place] Clinical Dosing Weight : 100 kg Weight, Pounds : 220 lb Body Surface Area (BSA) : 2.04 m2 Body Mass Index : 37.8 kg/m2 (HI) [place] Body Weight : 54 kg EDENILSON ANDREWS RN - 01/07/2019 10:04 EST Quick Look Assessment Level of Consciousness : Alert Affect/Behavior : Appropriate Orientation : Oriented x 4 Skin Temperature : Warm EDENILSON ANDREWS RN - 01/07/2019 10:04 EST Health Histories Smoking Status : Never (less than 100 in lifetime; none in last 30 days) Smokeless Tobacco Status : Never EDENILSON ANDREWS RN - 01/07/2019 10:04 EST Social History (As Of: 01/07/2019 10:07:53 EST) Tobacco: Never Smokeless Tobacco Status. (Last Updated: 11/12/2018 09:08:33 EST by EDENILSON ANDREWS, RN) Alcohol: Alcohol Use History Yes. Total Drinks/Week: 2. Alcohol Use Frequency Weekly. (Last Updated: 11/12/2018 09:08:53 EST by EDENILSON ANDREWS, RN) Substance Abuse: Drug Use Hx: No. Use in Last 12 Months: No. (Last Updated: 11/12/2018 09:08:59 EST by EDENILSON ANDREWS, ZUHAIR) Advance Directive Patient has Advance Directive *Q : No, patient refuses Advance Directive information EDENILSON ANDREWS RN - 01/07/2019 10:04 EST Psychosocial History Does Someone Depend on You for Care? : No Chronic/Terminal Illness w/Freq Visits : No Do You Have a History of the Following? : Anxiety Currently in Unsafe Situation : No Tried to Harm Yourself in the Past? : No Thoughts of Harming/Killing Yourself : No EDENILSON ANDREWS RN - 01/07/2019 10:04 EST Fall Risk Scales ABCs Fall Injury [...] Scale Risk Level : 25-45 Medium Risk [place] Fall Interventions : Adequate lighting, Assistive devices within reach, Bed in low position, Call device within reach, Hourly comfort/safety rounds EDENILSON ANDREWS RN - 01/07/2019 10:04 EST Pain Assessment Pain Assessment : Initial assessment Intensity : 7 Location : Other: all over joints EDENILSON ANDREWS RN - 01/07/2019 10:04 EST Electronically signed by [facility], [facility] Conversion Validation Scientist Cerner at 02/28/2023 6:19 PM CDT documented in this encounter Plan of Treatment Upcoming Encounters Date Type Department Care Team (Late st Contact Info) Description 11/25/2025 9:00 AM EST Appointment [facility] Outpatient Treatment [address] [place] [address] documented as of this encounter Visit Diagnoses Not on filedocumented in this encounter Care Teams Drafter Marine Relationship Specialty Start Date End Date Morena Reese MD [address] [phone] PCP - General General Internal Medicine 10/17/22 documented as of this encounter
--- OUTSIDE RECORDS SUMMARY | 2025-11-08 16:45 | XMS_ITS | Encounter Summary ---
Author Organization [employer] ([place], [place], [place], [place], [place]) Address [address] [place] [address] Care Team Providers Care Trauma Doctor Name Role Phone Morena Reese MD Primary Care Provider [phone] Encounter Details Date Type Department Care Team (Late st Contact Info) Description 08/17/2021 Transcribed Document [facility] [place] [address] [place] [address] ProviderJavier MD [address] [place], [place] [address] Social History Tobacco Use Types Packs/Day Years [...] Conversion Note - Javier Hale MD - 08/17/2021 2:00 PM CDT Pain Assessment Entered On: 08/17/2021 16:29 EDT Performed On: 08/17/2021 14:48 EDT by GALLITO RODARTE RN Intervention Information: acetaminophen Performed by GALLITO RODARTE RN on 08/17/2021 13:48:00 EDT acetaminophen,1000mg Oral Pain Assessment Pain Comment : pre-med GALLITO RODARTE RN - 08/17/2021 16:29 EDT documented in this encounter Plan of Treatment Upcoming Encounters Date Type Department Care Team (Late st Contact Info) Description 11/25/2025 9:00 AM EST Appointment [facility] Outpatient Treatment [address] [place] [address] documented as of this encounter Visit Diagnoses Not on filedocumented in this encounter Care Teams Trauma Doctor Relationship Specialty Start Date End Date Morena Reese MD [address] [phone] PCP - General General Internal Medicine 10/17/22 documented as of this encounter
--- OUTSIDE RECORDS SUMMARY | 2025-11-08 16:45 | XMS_ITS | Encounter Summary ---
Author Organization [employer] ([place], [place], [place], [place], [place]) Address [address] [place] [address] Care Team Providers Care Surgical Scheduler Name Role Phone Morena Reese MD Primary Care Provider [phone] Encounter Details Date Type Department Care Team (Late st Contact Info) Description 12/09/2020 Transcribed Document [facility] [place] [address] [place] [address] ProviderJavier MD [address], [place] [id number] Social History Tobacco Use Types Packs/Day Years Used Date Smoking Tobacco: Never Assessed Comments Unknown Sex and Gender Information Value Date Recorded Sex Assigned at Female 05/10/2022 8:24 PM CDT Legal Sex Female 8:24 PM CDT Gender Identity Female 05/10/2022 8:24 PM CDT Sexual Orientation Not on file documented as of this encounter Miscellaneous Notes * Cerner Conversion Note - Javier ProviderMD - 12/09/2020 9:39 AM ANALYTICAL STATISTICIAN Outpatient Visit History Entered On: 12/09/2020 9:45 EST Performed On: 12/09/2020 9:39 EST by ELLIOTT ZEPEDA RN Vital Measurements Temperature Source : Temporal artery scanning Temperature Mode : Fahrenheit Temperature, Fahrenheit : 96.5 Deg F (LOW) Clinical Temperature, C : 35.8 Deg C Peripheral Pulse Rate : 86 bpm Pulse Rhythm : Regular Respiratory Rate : 18 Breaths/Min Blood Pressure Location : Arm, right upper Blood Pressure Source : Non-Invasive BP Device Blood Pressure Position : Sitting Systolic Blood Pressure : 144 mmHg (HI) Diastolic Blood Pressure : 64 mmHg Oxygen Saturation : 95 % Oxygen Therapy Mode : Room air ELLIOTT ZEPEDA RN - 12/09/2020 9:39 EST Height and Weight, Clinical Dosing Height Source : Stated Height Entry Format : [place] Height, Feet : 5 ft(Converted to: 152 cm, 60 Inch) Height, Inches : 4 Inch(Converted to: 0 ft 4 Inch, 10.16 cm) Clinical Height : 162.56 cm Weight Source : Standing scale Weight Entry Format : [place] Clinical Dosing Weight : 100 kg Weight, Pounds : 220 lb Body Surface Area (BSA) : 2.04 m2 Body Mass Index : 37.8 kg/m2 (HI) [place] Body Weight : 54 kg ELLIOTT ZEPEDA RN - 12/09/2020 9:39 EST Health Histories Smoking Status : Former smoker, quit more than 30 days ago Smokeless Tobacco Status : Never ELLIOTT ZEPEDA RN - 12/09/2020 9:39 EST Social History (As Of: 12/09/2020 09:45:22 EST) Tobacco: Former smoker, quit more than [...] pox/Shingles, Measles, Mumps Tuberculosis Symptoms : None ELLIOTT ZEPEDA RN - 12/09/2020 9:39 EST COVID19 PreProcedure Screening Is this an Emergent or Add on Procedure? : No Date PreProcedure COVID-19 test known? : No Has patient been isolated since the test : No Exposed to COVID19 symptoms since test? : No ELLIOTT ZEPEDA RN - 12/09/2020 9:39 EST Advance Directive Patient has Advance Directive *Q : Yes, Advance Directive not with the patient Advance Directive Type : Living will Copy Advance Directive Verified/on Chart : No ELLIOTT ZEPEDA RN - 12/09/2020 9:39 EST [place] Suicide Severity Rating Scale (C-SSRS) CSSRS Past Month Wish to be : No CSSRS Past Month Suicidal Thoughts : No CSSRS Lifetime Suicide Behavior : No Suicide Severity Rating Score : 0 Suicide Severity Rating : No Additional Care Required at this time ELLIOTT ZEPEDA RN - 12/09/2020 9:39 EST Psychosocial History Chronic/Terminal Illness w/Freq Visits : No Do You Have a History of the Following? : Anxiety Currently in Unsafe Situation : No ELLIOTT ZEPEDA RN - 12/09/2020 9:39 EST Fall Risk Scales ABCs Fall Injury [...] 20 MARLEY Fall Scale Risk Level : 25-45 Medium Risk [place] Fall Interventions : Adequate lighting, Assistive devices [...] locked, Wires/Cords secured ELLIOTT ZEPEDA RN - 12/09/2020 9:39 EST documented in this encounter Plan of Treatment Upcoming Encounters Date Type Department Care Team (Late st Contact Info) Description 11/25/2025 9:00 AM EST Appointment [facility] Outpatient Treatment [address] [place] [address] documented as of this encounter Visit Diagnoses Not on filedocumented in this encounter Care Teams Surgical Scheduler Relationship Specialty [place] [address] [place] [phone] PCP - General General Internal Medicine 10/17/22 documented as of this encounter
--- OUTSIDE RECORDS SUMMARY | 2025-11-08 16:45 | XMS_ITS | Encounter Summary ---
Author Organization [employer] ([place], [place], [place], [place], [place]) Address [address] [place] [address] Care Team Providers Care Lay Out Machine Operator Name Role Phone Morena Reese MD Primary Care Provider [phone] Encounter Details Date Type Department Care Team (Late st Contact Info) Description 12/09/2020 Transcribed Document [facility] [place] Family Medicine [address] [place] [address] ProviderJavier MD [address], [place] [address] Social History Tobacco Use Types Packs/Day Years [...] Conversion Note - Javier ProviderMD - 12/09/2020 12:29 PM RCP Nursing Discharge Summary Entered On: 12/09/2020 12:29 EST Performed On: 12/09/2020 12:29 EST by TERRANCE ELIAS solar development engineer Documentation Discharge Date/Time : 12/09/2020 12:29 EST Patient Disposition, General : Discharge Discharge To : Home with ambulatory/outpatient follow-up Mode Of Departure, General Discharge : Ambulatory Accompanied By, Discharge : Unaccompanied IV Discontinued : Yes Personal Belongings With Patient : Yes Discharge Instructions Reviewed With, Opportunity For Questions Given : Patient Patient Education Completed : Yes Teaching Method : Explanation Teaching Evaluation : Verbalizes understanding TERRANCE ELIAS RN - 12/09/2020 12:29 EST Electronically signed by [place], [facility] Conversion Aircraft Detail Draftsperson Cerner at 02/28/2023 6:04 PM CDT documented in this encounter Plan of Treatment Upcoming Encounters Date Type Department Care Team (Late st Contact Info) Description 11/25/2025 9:00 AM EST Appointment [facility] Outpatient Treatment [address] [place] [address] documented as of this encounter Visit Diagnoses Not on filedocumented in this encounter Care Teams Lay Out Machine Operator Relationship Specialty Start Date End Date Morena Reese MD [address] [phone] PCP - General General Internal Medicine 10/17/22 documented as of this encounter
--- OUTSIDE RECORDS SUMMARY | 2025-11-08 16:45 | XMS_ITS | Encounter Summary ---
Author Organization [employer] ([place], [place], [place], [place], [place]) Address [address] [place] [address] Care Team Providers Care Primer Supervisor Name Role Phone Morena Reese MD Primary Care Provider [phone] Encounter Details Date Type Department Care Team (Late st Contact Info) Description 09/28/2021 Transcribed Document [facility] [place] [address] [place] [address] ProviderJavier MD [address] [place], [place] [address] Social History Tobacco Use Types Packs/Day Years [...] Conversion Note - Javier Hale MD - 09/28/2021 1:05 PM ONLINE CONTENT DEVELOPER Outpatient Visit History Entered On: 09/28/2021 13:06 EST Performed On: 09/28/2021 13:05 EST by BONIFACIO LONGORIA RN Vital Measurements Temperature Source : Temporal artery scanning Temperature Mode : Fahrenheit Temperature, Fahrenheit : 97.5 Deg F Clinical Temperature, C : 36.4 Deg C Pulse Method : Pulse Oximetry Peripheral Pulse Rate : 99 bpm Respiratory Rate : 18 Breaths/Min Blood Pressure Location : Arm, right upper Blood Pressure Source : Non-Invasive BP Device Systolic Blood Pressure : 120 mmHg Diastolic Blood Pressure : 59 mmHg (LOW) Oxygen Saturation : 94 % Oxygen Therapy Mode : Room air BONIFACIO LONGORIA RN - 09/28/2021 13:05 EST Height and Weight, Clinical Dosing Height Source : Stated Height Entry Format : [place] Height, Feet : 5 ft(Converted to: 152 cm, 60 Inch) Height, Inches : 4 Inch(Converted to: 0 ft 4 Inch, 10.16 cm) Clinical Height : 162.56 cm Weight Source : Standing scale Weight Entry Format : [place] Clinical Dosing Weight : 100 kg Weight, Pounds : 220 lb Body Surface Area (BSA) : 2.04 m2 Body Mass Index : 37.8 kg/m2 (HI) [place] Body Weight : 54 kg BONIFACIO LONGORIA RN - 09/28/2021 13:05 EST Health Histories Smoking Status : Former smoker, quit more than 30 days ago Smokeless Tobacco Status : Never BONIFACIO LONGORIA RN - 09/28/2021 13:05 EST Social History (As Of: 09/28/2021 13:06:56 EST) Tobacco: Former smoker, quit more than [...] Patient Vaccinated for COVID-19 : Fully vaccinated BONIFACIO LONGORIA RN - 09/28/2021 13:05 EST Infectious Disease Risk Screening Grid Cough < 2 wks of unknown origin : NO Cough > 2 weeks : NO Blood in Sputum : NO Fever or self-reported Fever : NO Rash of unknown origin : NO Headache : NO Stiff neck : NO Night Sweats : NO Unexplained Weight Loss : NO Diarrhea (3 episode per day) : NO BONIFACIO LONGORIA RN - 09/28/2021 13:05 EST Physical contact outside [place] in the last 30 days : No Hospitalized in Foreign Country : No Infectious Disease History : Chicken pox/Shingles, Measles, Mumps INF Disease TB Screening Calc : 0 INF Disease Recent Travel Calc : 0 BONIFACIO LONGORIA RN - 09/28/2021 13:05 EST COVID19 PreProcedure Screening Is this an Emergent or Add on Procedure? : No Date PreProcedure COVID-19 test known? : No Has patient been isolated since the test : N/A - PreProcedure, in-person visit Exposed to COVID19 symptoms since test? : N/A - PreProcedure, in-person visit BONIFACIO LONGORIA RN - 09/28/2021 13:05 EST Advance Directive Patient has Advance Directive *Q : No, patient refuses Advance Directive information BONIFACIO LONGORIA RN - 09/28/2021 13:05 EST [place] Suicide Severity Rating Scale (C-SSRS) CSSRS Past Month Wish to be : No CSSRS Past Month Suicidal Thoughts : No CSSRS Lifetime Suicide Behavior : No Suicide Severity Rating Score : 0 Suicide Severity Rating : No Additional Care Required at this time BONIFACIO LONGORIA RN - 09/28/2021 13:05 EST Psychosocial History Chronic/Terminal Illness w/Freq Visits : No Do You Have a History of the Following? : Anxiety Currently in Unsafe Situation : No BONIFACIO LONGORIA RN - 09/28/2021 13:05 EST Fall Risk Scales ABCs Fall Injury [...] Scale Risk Level : 0-24 Low Risk [place] Fall Interventions : Adequate lighting, Bed in low position, Call device within reach, Wheels locked BONIFACIO LONGORIA RN - 09/28/2021 13:05 EST Pain Assessment Pain Assessment : Initial assessment Intensity : 0 BONIFACIO LONGORIA RN - 09/28/2021 13:05 EST documented in this encounter Plan of Treatment Upcoming Encounters Date Type Department Care Team (Late st Contact Info) Description 11/25/2025 9:00 AM EST Appointment Outpatient Treatment [address] [place] [address] documented as of this encounter Visit Diagnoses Not on filedocumented in this encounter Care Teams Primer Supervisor Relationship Specialty Start Date End Date Morena Reese MD [address] [phone] PCP - General General Internal Medicine 10/17/22 documented as of this encounter
--- OUTSIDE RECORDS SUMMARY | 2025-11-08 16:45 | XMS_ITS | Encounter Summary ---
Author Organization [employer] ([place], [place], [place], [place], [place]) Address [address] [place] [address] Care Team Providers Care Ballistics Expert Name Role Phone Morena Reese MD Primary Care Provider [phone] Encounter Details Date Type Department Care Team (Late st Contact Info) Description 04/13/2021 Transcribed Document [facility] [place] [address] [place] [address] ProviderJavier MD [address] [place], [place] [address] Social History Tobacco Use Types Packs/Day Years Used Date Smoking Tobacco: Never Assessed Comments Unknown Sex and Gender Information Value Date Recorded Sex Assigned at Female 05/10/2022 8:24 PM CDT Legal Sex Female 8:24 PM CDT Gender Identity Female 05/10/2022 8:24 PM CDT Sexual Orientation Not on file documented as of this encounter Miscellaneous Notes * Cerner Conversion Note - Javier ProviderMD - 04/13/2021 4:08 PM CDT Nursing Discharge Summary Entered On: 04/13/2021 16:09 EDT Performed On: 04/13/2021 16:08 EDT by GALLITO RODARTE outside sales advertising executive Documentation Discharge Date/Time : 04/13/2021 16:07 EDT Patient Disposition, General : Discharge Discharge [...] in 6 weeks GALLITO RODARTE RN - 04/13/2021 16:08 EDT Electronically signed by [place] [facility] Conversion Environmental Field Services Technician Cerner at 02/28/2023 6:13 PM CDT documented in this encounter Plan of Treatment Upcoming Encounters Date Type Department Care Team (Late st Contact Info) Description 11/25/2025 9:00 AM EST Appointment [facility] Outpatient Treatment [address] [place] [address] documented as of this encounter Visit Diagnoses Not on filedocumented in this encounter Care Teams Ballistics Expert Relationship Specialty Start Date End Date Morena Reese MD [address] [address] PCP - General General Internal Medicine 10/17/22 documented as of this encounter
--- OUTSIDE RECORDS SUMMARY | 2025-11-08 16:45 | XMS_ITS | Encounter Summary ---
Author Organization [facility] Address [address] [id number] Care Team Providers Care Extermination Inspector Name Role Phone Morena Reese MD Primary Care Provider [phone] Reason for Referral * Consultation (Routine) - Closed Specialty Diagnoses / Procedures Referred By Contac t Referred To Contact Rheumatology Diagnoses Rheumatoid arthritis involving multiple sites, unspecified whether rheumatoid factor present (CMS/HCC) [place] [id number] fax: Referral ID Status Reason Start Date Expiration Date V isits Requested Visits Authorized [id number] Closed Specialty Services Required 11/08/2021 05/10/2023 1 1 Encounter Details Date Type Department Care Team (Late st Contact Info) Description 11/08/2021 [facility] Practice [address] [place] [address] [place] [id number] Rheumatoid arthritis involving multiple sites, unspecified whether rheumatoid factor present (CMS/HCC) (Primary Dx) Social History Tobacco Use Types Packs/Day Years Used Date Smoking Tobacco: Never Assessed Comments Unknown Sex and Gender Information Value Date Recorded Sex Assigned at Female 12/30/2021 10:52 AM EST Legal Sex Female 9:24 AM EST Gender Identity Female 12/30/2021 10:52 AM EST Sexual Orientation Not on file documented as of this encounter Plan of Treatment Scheduled Referrals Name Type Priority Associated Diagnoses Orde r Schedule Ambulatory referral to Rheumatology Outpatient Referral Routine Rheumatoid arthritis involving multiple sites, unspecified whether rheumatoid factor present (CMS/HCC) Expected: 11/08/2021 (Approximate), Expires: 05/09/2022 documented as of this encounter Visit Diagnoses Diagnosis Rheumatoid arthritis involving multiple sites, unspecified whether rheumatoid factor present ([facility])- Primary documented in this encounter Care Teams Extermination Inspector Relationship Specialty Start Date End Date Morena Reese MD [id number] PCP - General 11/08/21 documented as of this encounter
--- OUTSIDE RECORDS SUMMARY | 2025-11-08 16:45 | XMS_ITS | Encounter Summary ---
Author Organization [employer] ([place], [place], [place], [place], [place]) Address [address] [place] [address] Care Team Providers Care Director Of Integrated Marketing Name Role Phone Morena Reese MD Primary Care Provider [phone] Encounter Details Date Type Department Care Team (Late st Contact Info) Description 09/28/2021 Transcribed Document [facility] [place] Family Medicine [address] [place] [address] ProviderJavier MD [address], [place] [address] Social History Tobacco Use Types Packs/Day Years Used Date Smoking Tobacco: Never Assessed Comments Unknown Sex and Gender Information Value Date Recorded Sex Assigned at Female 05/10/2022 8:24 PM CDT Legal Sex Female 8:24 PM CDT Gender Identity Female 05/10/2022 8:24 PM CDT Sexual Orientation Not on file documented as of this encounter Miscellaneous Notes * Cerner Conversion Note - Historical ProviderMD - 09/28/2021 3:58 PM SAUSAGE INSPECTOR Nursing Discharge Summary Entered On: 09/28/2021 15:59 EST Performed On: 09/28/2021 15:58 EST by REYNOLD SALEEM machine wedger Documentation Discharge Date/Time : 09/28/2021 15:59 EST Patient Disposition, General : Discharge Discharge To : Home with ambulatory/outpatient follow-up Mode Of Departure, General Discharge : Ambulatory Accompanied By, Discharge : Unaccompanied IV Discontinued : Yes Discharge Instructions Reviewed With, Opportunity For Questions Given : Patient Teaching Method : Explanation Teaching Evaluation : Verbalizes understanding REYNOLD SALEEM RN - 09/28/2021 15:58 EST Electronically signed by [facility] Conversion Lode Miner Cerner at 02/28/2023 6:06 PM CDT documented in this encounter Plan of Treatment Upcoming Encounters Date Type Department Care Team (Late st Contact Info) Description 11/25/2025 9:00 AM EST Appointment [facility] Outpatient Treatment [address] [place] [address] documented as of this encounter Visit Diagnoses Not on filedocumented in this encounter Care Teams Director Of Integrated Marketing Relationship Specialty Start Date End Date Morena Reese MD [address] [address] PCP - General General Internal Medicine 10/17/22 documented as of this encounter
--- OUTSIDE RECORDS SUMMARY | 2025-11-08 16:45 | XMS_ITS | Encounter Summary ---
Author Organization [employer] ([place], [place], [place], [place], [place]) Address [address] [place] [address] Care Team Providers Care Career Services Manager Name Role Phone Morena Reese MD Primary Care Provider [phone] Encounter Details Date Type Department Care Team (Late st Contact Info) Description 11/09/2021 Transcribed Document [facility] [place] [address] [place] [address] ProviderJavier MD [address], [place] [address] Social History Tobacco Use Types Packs/Day Years Used Date Smoking Tobacco: Never Assessed Comments Unknown Sex and Gender Information Value Date Recorded Sex Assigned at Female 05/10/2022 8:24 PM CDT Legal Sex Female 8:24 PM CDT Gender Identity Female 05/10/2022 8:24 PM CDT Sexual Orientation Not on file documented as of this encounter Miscellaneous Notes * Cerner Conversion Note - Javier ProviderMD - 11/09/2021 4:10 PM COLLECTIONS CURATOR Nursing Discharge Summary Entered On: 11/09/2021 16:11 EST Performed On: 11/09/2021 16:10 EST by GALLITO RODARTE personal assistant Documentation Discharge Date/Time : 11/09/2021 16:10 EST Patient Disposition, General : Discharge Discharge To : Home with ambulatory/outpatient follow-up Mode Of Departure, General Discharge : Ambulatory Accompanied By, Discharge : Unaccompanied IV Discontinued : Yes IV Therapy Comment : c/o pain at site but getting better Personal Belongings With Patient : Yes Discharge Instructions Reviewed With, Opportunity For Questions Given : Patient Teaching Method : Explanation Education Comment : Return in 6 weeks GALLITO RODARTE RN - 11/09/2021 16:10 EST Electronically signed by [place] [facility] Conversion Clerical Order Filler Cerner at 02/28/2023 6:09 PM CDT documented in this encounter Plan of Treatment Upcoming Encounters Date Type Department Care Team (Late st Contact Info) Description 11/25/2025 9:00 AM EST Appointment [facility] Outpatient Treatment [address] [place] [address] documented as of this encounter Visit Diagnoses Not on filedocumented in this encounter Care Teams Career Services Manager Relationship Specialty Start Date End Date Morena Reese MD [address] [address] PCP - General General Internal Medicine 10/17/22 documented as of this encounter
--- OUTSIDE RECORDS SUMMARY | 2025-11-08 16:45 | XMS_ITS | Encounter Summary ---
Author Organization [employer] ([place], [place], [place], [place], [place]) Address [address] [place] [address] Care Team Providers Care Policyholder Information Clerk Name Role Phone Morena Reese MD Primary Care Provider [phone] Encounter Details Date Type Department Care Team (Late st Contact Info) Description 05/24/2021 Transcribed Document [facility] [place] [address] [place] [address] ProviderJavier MD [address] [place], [place] [address] Social History Tobacco Use Types Packs/Day Years [...] Conversion Note - Javier Hale MD - 05/24/2021 1:17 PM CDT Outpatient Visit History Entered On: 05/24/2021 13:18 EDT Performed On: 05/24/2021 13:17 EDT by TERRANCE ELIAS RN Vital Measurements Temperature Source : Temporal artery scanning Temperature Mode : Fahrenheit Temperature, Fahrenheit : 98.6 Deg F Clinical Temperature, C : 37 Deg C Peripheral Pulse Rate : 89 bpm Respiratory Rate : 16 Breaths/Min Blood Pressure Location : Arm, right upper Blood Pressure Source : Non-Invasive BP Device Systolic Blood Pressure : 130 mmHg Diastolic Blood Pressure : 61 mmHg Oxygen Saturation : 96 % Oxygen Therapy Mode : Room air TERRANCE ELIAS RN - 05/24/2021 13:17 EDT Height and Weight, Clinical Dosing Height Source : Measured Height Entry Format : [place] Height, Feet : 5 ft(Converted to: 152 cm, 60 Inch) Height, Inches : 4 Inch(Converted to: 0 ft 4 Inch, 10.16 cm) Clinical Height : 162.56 cm Weight Source : Standing scale Weight Entry Format : [place] Clinical Dosing Weight : 100 kg Weight, Pounds : 220 lb Body Surface Area (BSA) : 2.04 m2 Body Mass Index : 37.8 kg/m2 (HI) [place] Body Weight : 54 kg TERRANCE ELIAS RN - 05/24/2021 13:17 EDT Quick Look Assessment Level of Consciousness : Alert, Awake Affect/Behavior : Appropriate, Calm, Cooperative Orientation : Oriented x 4 Skin Temperature : Warm Skin Description : Normal for ethnicity TERRANCE ELIAS RN - 05/24/2021 13:17 EDT Health Histories Smoking Status : Former smoker, quit more than 30 days ago Smokeless Tobacco Status : Never TERRANCE ELIAS RN - 05/24/2021 13:17 EDT Social History (As Of: 05/24/2021 13:18:29 EDT) Tobacco: Former smoker, quit more than [...] ever been tested for COVID-19? : No, Screening today for COVID-19 Date of COVID-19 test known? : No Does patient have symptoms of COVID-19? : No COVID19 Screening : No Experiencing Infectious Disease Symptoms : No symptoms Physical contact outside [place] in the last 30 days : No Infectious Disease History : Chicken pox/Shingles, Measles, Mumps Tuberculosis Symptoms : None TERRANCE ELIAS RN - 05/24/2021 13:17 EDT COVID19 PreProcedure Screening Is this an Emergent or Add on Procedure? : Yes TERRANCE ELIAS RN - 05/24/2021 13:17 EDT Advance Directive Patient has Advance Directive *Q : No, patient refuses Advance Directive information TERRANCE ELIAS RN - 05/24/2021 13:17 EDT [place] Suicide Severity Rating Scale (C-SSRS) CSSRS Past Month Wish to be : No CSSRS Past Month Suicidal Thoughts : No CSSRS Lifetime Suicide Behavior : No Suicide Severity Rating Score : 0 Suicide Severity Rating : No Additional Care Required at this time TERRANCE ELIAS RN - 05/24/2021 13:17 EDT Psychosocial History Chronic/Terminal Illness w/Freq Visits : No Do You Have a History of the Following? : Anxiety Currently in Unsafe Situation : No TERRANCE ELIAS RN - 05/24/2021 13:17 EDT Fall Risk Scales ABCs Fall Injury [...] Scale Risk Level : 25-45 Medium Risk [place] Fall Interventions : Adequate lighting, Bed in low position, Call device within reach, Fall prevention handout/education per facility policy, Frequent orientation to call device, Frequent orientation to surroundings, Hourly comfort/safety rounds, Non-slip footwear TERRANCE ELIAS RN - 05/24/2021 13:17 EDT Pain Assessment Pain Assessment : Initial assessment Intensity : 0 TERRANCE ELIAS RN - 05/24/2021 13:17 EDT Electronically signed by Jaxon Barahona Conversion [employer] Product Leadership Cerner at 02/28/2023 5:55 PM CDT documented in this encounter Plan of Treatment Upcoming Encounters Date Type Department Care Team (Late st Contact Info) Description 11/25/2025 9:00 AM EST Appointment [facility] Outpatient Treatment [address] [place] [address] documented as of this encounter Visit Diagnoses Not on filedocumented in this encounter Care Teams Policyholder Information Clerk Relationship Specialty Start Date End Date Morena Reese MD [address] [address] PCP - General General Internal Medicine 12/5/22 documented as of this encounter
--- OUTSIDE RECORDS SUMMARY | 2025-11-08 16:45 | XMS_ITS | Encounter Summary ---
Author Organization [employer] ([place], [place], [place], [place], [place]) Address [address] [place] [address] Care Team Providers Care Accounting Clerk Name Role Phone Morena Reese MD Primary Care Provider [phone] Encounter Details Date Type Department Care Team (Late st Contact Info) Description 09/17/2020 Transcribed Document [facility] [place] [address] [place] [address] ProviderJavier MD [address], [place] [address] Social History Tobacco Use Types Packs/Day Years [...] Note - Javier Hale MD - 09/17/2020 10:37 AM SCOURING MACHINE OPERATOR Outpatient Visit History Entered On: 09/17/2020 10:42 EST Performed On: 09/17/2020 10:37 EST by GALLITO RODARTE RN Vital Measurements Temperature Source : Temporal artery scanning Temperature Mode : Fahrenheit Temperature, Fahrenheit : 98.1 Deg F Clinical Temperature, C : 36.7 Deg C Pulse Method : Non-Invasive BP Device Peripheral Pulse Rate : 83 bpm Respiratory Rate : 20 Breaths/Min Blood Pressure Location : Arm, right upper Blood Pressure Source : Non-Invasive BP Device Blood Pressure Position : Supine Systolic Blood Pressure : 139 mmHg Diastolic Blood Pressure : 65 mmHg Oxygen Saturation : 97 % Oxygen Therapy Mode : Room air GALLITO RODARTE RN - 09/17/2020 10:39 EST Height and Weight, Clinical Dosing Height Source : Chart Height Entry Format : [place] Height, Feet : 5 ft(Converted to: 152 cm, 60 Inch) Height, Inches : 4 Inch(Converted to: 0 ft 4 Inch, 10.16 cm) Clinical Height : 162.56 cm Weight Source : Standing scale Weight Entry Format : [place] Clinical Dosing Weight : 100 kg Weight, Pounds : 220 lb Body Surface Area (BSA) : 2.04 m2 Body Mass Index : 37.8 kg/m2 (HI) [place] Body Weight : 54 kg GALLITO RODARTE RN - 09/17/2020 10:39 EST Quick Look Assessment Level of Consciousness : Alert Affect/Behavior : Calm Orientation : Oriented x 4 Skin Temperature : Warm Skin Description : Normal for ethnicity GALLITO RODARTE RN - 09/17/2020 10:39 EST Health Histories Smoking Status : Former smoker, quit more than 30 days ago Smokeless Tobacco Status : Never GALLITO RODARTE RN - 09/17/2020 10:39 EST Social History (As Of: 09/17/2020 10:42:07 EST) Tobacco: Former smoker, quit more than [...] days : No Infectious Disease History : None Tuberculosis Symptoms : None GALLITO RODARTE RN - 09/17/2020 10:39 EST COVID19 PreProcedure Screening Is this an Emergent or Add on Procedure? : No Has patient been isolated since the test : N/A - PreProcedure, in-person visit Exposed to COVID19 symptoms since test? : N/A - PreProcedure, in-person visit GALLITO RODARTE RN - 09/17/2020 10:39 EST Advance Directive Patient has Advance Directive *Q : Yes, Advance Directive on file Advance Directive Type : Living will Copy Advance Directive Verified/on Chart : No GALLITO RODARTE RN - 09/17/2020 10:39 EST [place] Suicide Severity Rating Scale (C-SSRS) CSSRS Past Month Wish to be : No CSSRS Past Month Suicidal Thoughts : No CSSRS Lifetime Suicide Behavior : No Suicide Severity Rating Score : 0 Suicide Severity Rating : No Additional Care Required at this time GALLITO RODARTE RN - 09/17/2020 10:39 EST Psychosocial History Does Someone Depend on You for Care? : No Chronic/Terminal Illness w/Freq Visits : No Do You Have a History of the Following? : Anxiety Currently in Unsafe Situation : No GALLITO RODARTE RN - 09/17/2020 10:39 EST Fall Risk Scales ABCs Fall Injury Risk Identification : None MARLEY Hx Falls Immediate/Within 3 Months : No Marley Secondary Diagnosis : No MARLEY Use of Ambulatory Aid : None MARLEY IV Therapy or IV Access : No [place]ley Gait/Transferring : Normal, bedrest, immobile [place] Mental Status : Oriented to own ability [place] Fall Risk Score : 0 MAR[place] Fall Scale Risk Level : 0-24 Low Risk [place] Fall Interventions : Adequate lighting, Bed in low position, Call device within reach, Frequent orientation to call device, Frequent orientation to surroundings, Hourly comfort/safety rounds, Non-slip footwear, Personal items within reach, Reinforced to call for assistance before getting out of bed, Room free of clutter/spills, Wheels locked, Wires/Cords secured GALLITO RODARTE RN - 09/17/2020 10:39 EST Pain Assessment Pain Assessment : Initial assessment Intensity : 8 Location : Back GALLITO RODARTE RN - 09/17/2020 10:39 EST documented in this encounter Plan of Treatment Upcoming Encounters Date Type Department Care Team (Late st Contact Info) Description 11/25/2025 9:00 AM EST Appointment [facility] Outpatient Treatment [address] [place] [address] documented as of this encounter Visit Diagnoses Not on filedocumented in this encounter Care Teams Accounting Clerk Relationship Specialty Start Date End Date Morena Reese MD [address] [address] PCP - General General Internal Medicine 10/17/22 documented as of this encounter
--- OUTSIDE RECORDS SUMMARY | 2025-11-08 16:45 | XMS_ITS | Encounter Summary ---
Author Organization [employer] ([place], [place], [place], [place], [place]) Address [address] [place] [address] Care Team Providers Care Engine Repairer Name Role Phone Morena Reese MD Primary Care Provider [phone] Encounter Details Date Type Department Care Team (Late st Contact Info) Description 08/17/2021 Transcribed Document [facility] [place] Family Medicine [address] [place] [address] ProviderJavier MD [address], [place] [address] Social History Tobacco Use Types Packs/Day Years [...] Note - Javier Hale MD - 08/17/2021 1:30 PM CDT Outpatient Visit History Entered On: 08/17/2021 13:52 EDT Performed On: 08/17/2021 13:30 EDT by GALLITO RODARTE, RN Vital Measurements Temperature Source : Temporal artery scanning Temperature Mode : Fahrenheit Temperature, Fahrenheit : 97.7 Deg F Clinical Temperature, C : 36.5 Deg C Pulse Method : Non-Invasive BP Device Peripheral Pulse Rate : 90 bpm Respiratory Rate : 20 Breaths/Min Blood Pressure Location : Arm, right upper Blood Pressure Source : Non-Invasive BP Device Blood Pressure Position : Sitting Systolic Blood Pressure : 113 mmHg Diastolic Blood Pressure : 58 mmHg (LOW) Oxygen Saturation : 94 % Oxygen Therapy Mode : Room air GALLITO RODARTE RN - 08/17/2021 13:50 EDT Height and Weight, Clinical Dosing Height Source : Chart Height Entry Format : [place] Height, Feet : 5 ft(Converted to: 152 cm, 60 Inch) Height, Inches : 4 Inch(Converted to: 0 ft 4 Inch, 10.16 cm) Clinical Height : 162.56 cm Weight Source : Standing scale Weight Entry Format : [place] Clinical Dosing Weight : 103.73 kg Weight, Pounds : 228.2 lb Body Surface Area (BSA) : 2.07 m2 Body Mass Index : 39.3 kg/m2 (HI) [place] Body Weight : 54 kg GALLITO RODARTE RN - 08/17/2021 13:50 EDT Quick Look Assessment Level of Consciousness : Alert Affect/Behavior : Anxious Orientation : Oriented x 4 Skin Temperature : Warm Skin Description : Normal for ethnicity GALLITO RODARTE RN - 08/17/2021 13:50 EDT Health Histories Smoking Status : Former smoker, quit more than 30 days ago Smokeless Tobacco Status : Never GALLITO RODARTE RN - 08/17/2021 13:50 EDT Social History (As Of: 08/17/2021 13:52:39 EDT) Tobacco: Former smoker, quit more than 30 days ago Smoking Status. (Last Updated: 05/08/2019 08:51:39 EDT by ROSE PERDOMO) Alcohol: Alcohol Use History Yes. Total Drinks/Week: 2. Alcohol Use Frequency Weekly. (Last Updated: 11/12/2018 09:08:53 EST by EDENILSON ANDREWS RN) Substance Abuse: Drug Use Hx: No. Use in Last 12 Months: No. (Last Updated: 11/12/2018 09:08:59 EST by EDENILSON ANDREWS RN) Infectious Disease History Does patient have symptoms of COVID-19? : No Has the Patient Been Tested for COVID-19 in the last 14 days? : No, Patient stated Does the Patient state known exposure to a COVID-19 positive case in the last 14 days? : No Patient Vaccinated for COVID-19 : Fully vaccinated GALLITO RODARTE RN - 08/17/2021 13:50 EDT Infectious Disease Risk Screening Grid Cough < [...] day) : NO GALLITO RODARTE RN - 08/17/2021 13:50 EDT Physical contact outside [place] in the last 30 days : No Hospitalized in Foreign Country : No Infectious Disease History : Chicken pox/Shingles, Measles, Mumps INF Disease TB Screening Calc : 0 INF Disease Recent Travel Calc : 0 GALLITO RODARTE RN - 08/17/2021 13:50 EDT COVID19 PreProcedure Screening Is this an Emergent or Add on Procedure? : No Date PreProcedure COVID-19 test known? : No Has patient been isolated since the test : No Exposed to COVID19 symptoms since test? : No GALLITO RODARTE RN - 08/17/2021 13:50 EDT Advance Directive Patient has Advance Directive *Q : Yes, Advance Directive on file Advance Directive Type : Living will Copy Advance Directive Verified/on Chart : No GALLITO RODARTE RN - 08/17/2021 13:50 EDT [place] Suicide Severity Rating Scale (C-SSRS) CSSRS Past Month Wish to be : No CSSRS Past Month Suicidal Thoughts : No CSSRS Lifetime Suicide Behavior : No Suicide Severity Rating Score : 0 Suicide Severity Rating : No Additional Care Required at this time GALLITO RODARTE RN - 08/17/2021 13:50 EDT Psychosocial History Does Someone Depend on You for Care? : No Chronic/Terminal Illness w/Freq Visits : No Do You Have a History of the Following? : Anxiety Currently in Unsafe Situation : No GALLITO RODARTE RN - 08/17/2021 13:50 EDT Fall Risk Scales ABCs Fall Injury [...] Scale Risk Level : 0-24 Low Risk [place] Fall Interventions : Adequate lighting, Call device within reach, Frequent orientation to call device, Frequent orientation to surroundings, Hourly comfort/safety rounds, Non-slip footwear, Personal items within reach, Room free of clutter/spills, Wheels locked, Wires/Cords secured GALLITO RODARTE RN - 08/17/2021 13:50 EDT Pain Assessment Location : Headache, frontal GALLITO RODARTE RN - 08/17/2021 14:18 EDT Pain Assessment : Initial assessment GALLITO RODARTE RN - 08/17/2021 13:50 EDT Intensity : 3 GALLITO RODARTE RN - 08/17/2021 14:18 EDT Electronically signed by [place] [facility] Conversion Senior Investment Analyst Cerner at 02/28/2023 6:14 PM CDT documented in this encounter Plan of Treatment Upcoming Encounters Date Type Department Care Team (Late st Contact Info) Description 11/25/2025 9:00 AM EST Appointment [facility] Outpatient Treatment [address] [place] [phone] documented as of this encounter Visit Diagnoses Not on filedocumented in this encounter Care Teams Engine Repairer Relationship Specialty Start Date End Date Morena Reese MD [address] [address] PCP - General General Internal Medicine 10/17/22 documented as of this encounter
--- OUTSIDE RECORDS SUMMARY | 2025-11-08 16:45 | XMS_ITS | Clinical Summary ---
Author Organization [employer] ([place], [place], [place], [place], [place]) Address [address] [place] [address] Care Team Providers Care Plugman Name Role Phone Morena Reese MD Primary Care Provider [phone] Allergies Active Allergy Reactions Criticality Noted Date Comments Lisinopril Low 06/02/2016 Other reaction(s): Cough 1constant cough Medications alendronate (FOSAMAX) 70 MG tablet alendronate 70 mg tablet Take 1 tablet every week by oral route for 90 days. Active amLODIPine (NORVASC) 10 MG tablet amlodipine 10 mg tablet TAKE ONE TABLET BY MOUTH ONCE DAILY Active DULoxetine (CYMBALTA) 30 MG capsule daily. Active losartan (COZAAR) 25 MG tablet losartan 25 mg tablet TAKE ONE TABLET BY MOUTH ONCE DAILY Active inFLIXimab (Remicade) 100 mg injection Remicade 5mg/kg IV q 6 wks (SJE) Active Active Problems Problem Noted Date Diagnosed Date Seropositive rheumatoid arthritis of multiple si gogo 10/17/2022 Encounters Date Type Department Care Team Description 10/14/2025 9:00 AM EST - 10/14/2025 11:59 PM [facility] Hospital Encounter [facility] Outpatient Treatment [address] [place] [address] Seropositive rheumatoid arthritis of multiple sites (HCC) (Primary Dx) Discharge Disposition: Home or Self Care 09/29/2025 12:55 PM EST - 09/29/2025 11:59 PM [facility] Hospital Encounter [facility] CT - [facility] [address] [facility] [address] [place] [address] Morena Reese MD Personal history of tobacco use, presenting hazards to health Discharge Disposition: Home or Self Care 09/02/2025 9:00 AM EDT - 09/02/2025 11:59 PM EDT Hospital Encounter [facility] Outpatient Treatment [address] [place] [address] Seropositive rheumatoid arthritis of multiple sites (HCC) (Primary Dx); Rheumatoid arthritis (HCC) Discharge Disposition: Home or Self Care from Last 3 Months Social History Tobacco Use Types Packs/Day Years Used Date Smoking Tobacco: Former Cigarettes Q uit: 06/28/2014 Smokeless Tobacco: Never Tobacco Cessation:Counseling Given: Not Answered Comments:e cig for a few months Alcohol Use Standard Drinks/Week Comments Yes 0 (1 standard drink = 0.6 oz pur e alcohol) occasionally, 1 week Family and Community Support Answer Eddie e Recorded Help with Day to Day Activities Not on file 11/24/2023 Feeling Lonely or Isolated Not on file 11/24 Educational Attainment Answer Date Vito rded Speak language other than Ken[place] at home Not on file 11/24/2023 Want [...] PM CDT Sexual Orientation Not on file Last Filed Vital Signs Vital Sign Reading Time Taken Comments Blood Pressure 162/72 10/14/2025 11:30 AM EST Pulse 66 10/14/2025 11:30 AM EST Temperature 36.7 C (98 F) 01/23/2024 8:37 AM EDT Respiratory Rate 18 10/14/2025 9:21 AM EST Oxygen Saturation 96% 10/14/2025 9:21 AM EST Inhaled Oxygen Concentration - - Weight 99.8 kg (220 lb) 10/14/2025 9:21 AM EST Height 162.6 cm (5' 4 ) 10/14/2025 9:21 AM EST Body Mass Index 37.76 10/14/2025 9:21 AM EST Plan of Treatment Upcoming Encounters Date Type Department Care Team (Late st Contact Info) Description 11/25/2025 9:00 AM EST Appointment [facility] Outpatient Treatment [address] [place] [address] Health Maintenance Due Date Last Done Comments Medicare Initial AWV G0438 DXA SCAN 1949 Depression Screening (12+) 1961 Hepatitis C Screening 1967 Shingles Vaccine (Zoster) (1 of 2) 1999 Respiratory Syncytial Virus (RSV) Adult or (1 - 1-dose 75+ series) 2024 Falls Risk Screening 11/13/2024 COVID-19 VACCINE ( - 2024-2 6 season) 2025 11/20/2023, 08/04/2022, 10/26/2021 Influenza Vaccine (#1) 2025 11/20/2023 DTAP/TDAP/TD VACCINES (2 - T d or Tdap) 06/10/2026 06/10/2016 Tobacco Cessation Counseling and Screening (12+) 10/14/2026 10/14/2025 Breast Cancer Screening Discontinued 11/22/2018 Pneumococcal 50+ years Completed , 08/01/2018, 06/10/2016 Lung Cancer Screening Discontinued 09/29/2025 Procedures Procedure Name Priority Date/Time Associated Diagnosis Comments CT LUNG SCREENING ANNUAL FOLLOWUP Routine 09/29/2025 1:08 PM EST Personal history of tobacco use, presenting hazards to health ALT (SGPT) Routine 09/02/2025 9:38 AM EDT Rheumatoid arthritis (HCC) AST (SGOT) Routine 09/02/2025 9:38 AM EDT Rheumatoid arthritis (HCC) CREATININE Routine 09/02/2025 9:38 AM EDT Rheumatoid arthritis (HCC) BUN Routine 09/02/2025 9:38 AM EDT Rheumatoid arthritis (HCC) SEDIMENTATION RATE Routine 09/02/2025 9: 38 AM EDT Rheumatoid arthritis (HCC) CBC W/ AUTO DIFF Routine 09/02/2025 9:38 AM EDT Rheumatoid arthritis (HCC) from Last 3 Months Results * CT LUNG SCREENING ANNUAL FOLLOWUP [...] seen on image 32 of series 3. Morena Reese MD IMG CT ORDERABLES Final Resul t * (ABNORMAL) CBC with automated diff (09/02/2025 9:38 AM EDT) WBC 9.1 3.9 - 10.0 K/ L 09/02/2025 9:56 AM EDT [facility] RBC 4.26 3.93 - 6.08 M/ L 09/02/2025 9:56 AM EDT [facility] Hemoglobin 13.4 11.2 - 15.7 GM/DL 09/02/2025 9:56 AM EDT [facility] Hematocrit 40.6 34.1 - 44.9 % 09/02/2025 9:56 AM EDT [facility] MCV 95 79 - 95 fL 09/02/2025 9:56 AM EDT [facility] MCH 31.5 25.6 - 32.2 pg 09/02/2025 9:56 AM EDT [facility] MCHC 33.0 32.2 - 36.5 GM/DL 09/02/2025 9:56 AM EDT [facility] RDW 13.8 11.6 - 14.4 % 09/02/2025 9:56 AM EDT [facility] Platelets 265 163 - 369 K/CU MM 09/02/2025 9:56 AM EDT [facility] MPV 10.9 9.4 - 12.4 fL 09/02/2025 9:56 AM EDT [facility] % Neutros 51 34 - 71 % 09/02/2025 9:56 AM EDT [facility] % Lymphs 36 19 - 53 % 09/02/2025 9:56 AM EDT [facility] % Monos 10 4 - 13 % 09/02/2025 9:56 AM EDT [facility] % Eos 2.3 1.0 - 7.0 % 09/02/2025 9:56 AM EDT [facility] % Baso 1 0 - 1 % 09/02/2025 9:56 AM EDT [facility] # Neutros 4.63 1.56 - 6.13 K/ L 09/02/2025 9:56 AM EDT [facility] # Lymphs 3.24 1.18 - 3.74 K/ L 09/02/2025 9:56 AM EDT [facility] # Monos 0.90(H) 0.24 - 0.82 K/ L 09/02/2025 9:56 AM EDT [facility] # Eos 0.21 0.04 - 0.54 K/ L 09/02/2025 9:56 AM EDT [facility] # Baso 0.05 0.01 - 0.08 K/ L 09/02/2025 9:56 AM EDT [facility] % Imm Grans 0.20 0.00 - 0.60 % 09/02/2025 9:56 AM EDT [facility] # IG 0.02 0.00 - 0.05 K/uL 09/02/2025 9:56 AM EDT [facility] Blood Venipuncture / Unknown 09/02/2025 9:38 AM EDT 09/02/2025 9:41 AM EDT Narrative [facility] - 09/02/2025 9:56 AM EDT When CBC w/ Auto Diff is ordered the lab will add a Manual Differential as a quality check at no additional charge if: Lymphocytes greater than seventy five percent with normal or increased WBC Monocytes greater than Fifteen percent Basophil greater than four percent Bands >10% or several immature myeloids are seen on scan Blast? Flag noted Atypical Lymph flag noted Ruperto Ricks MD LAB BLOOD ORDERABLES Final Result Performing Organization Address [facility] Co de Phone Number [facility] [address] [employer] [address] [phone] * Sedimentation rate (09/02/2025 9:38 AM EDT) Sed Rate 25 0 - 30 mm/HR 09/02/2025 10:13 AM EDT [facility] Blood Venipuncture / Unknown 09/02/2025 9:38 AM EDT 09/02/2025 9:41 AM EDT Ruperto Ricks MD LAB BLOOD ORDERABLES Final Result Performing Organization Address City/[facility] Co de Phone Number [facility] [address] [phone] * BUN (09/02/2025 9:38 AM EDT) BUN 22 7 - 22 mg/dL 09/02/2025 10:03 AM EDT [facility] Blood Venipuncture / Unknown 09/02/2025 9:38 AM EDT 09/02/2025 9:41 AM EDT us Ruperto Ricks MD LAB BLOOD ORDERABLES Final Result [facility] [address] [place] [address], [facility] [phone] * ALT (SGPT) (09/02/2025 9:38 AM EDT) ALT 25 12 - 78 U/L 09/02/2025 10:03 AM EDT [facility] Blood Venipuncture / Unknown 09/02/2025 9:38 AM EDT 09/02/2025 9:41 AM EDT us Ruperto Ricks MD LAB BLOOD ORDERABLES Final Result [facility] [address] [phone] * AST (SGOT) (09/02/2025 9:38 AM EDT) AST 18 5 - 37 U/L 09/02/2025 10:03 AM EDT [facility] Blood Venipuncture / Unknown 09/02/2025 9:38 AM EDT 09/02/2025 9:41 AM EDT Ruperto Ricks MD LAB BLOOD ORDERABLES Final Result [facility] [address] [place] [address], [facility] [phone] * (ABNORMAL) Creatinine (09/02/2025 9:38 AM EDT) Creatinine 1.13(H) 0.55 - 1.02 mg/dL 09/02/2025 10:03 AM EDT [facility] eGFR (mL/min/1.73m2) 51(L) >=60 mL/min/1.7 3m2 09/02/2025 10:03 AM EDT [facility] Comment:ESTIMATED GFR IS NOT ACCURATE CREATININE CLEARANCE IN PREDICTING GLOMERULAR FILTRATION RATE. ESTIMATED GFR IS NOT APPLICABLE FOR DIALYSIS PATIENTS. Blood Venipuncture / Unknown 09/02/2025 9:38 AM EDT 09/02/2025 9:41 AM EDT us Ruperto Ricks MD LAB BLOOD ORDERABLES Final Result [facility] [address] [phone] from Last 3 Months Insurance MEDICARE PART A B Care Teams Plugman Relationship Specialty Start Date End Date Morena Reese MD [address] [address] PCP - General General Internal Medicine 10/17/22
--- OUTSIDE RECORDS SUMMARY | 2025-11-08 16:45 | XMS_ITS | Encounter Summary ---
Author Organization [employer] ([place], [place], [place], [place], [place]) Address [address] [place] [address] Care Team Providers Care Clay Puddler Name Role Phone Morena Reese MD Primary Care Provider [phone] Encounter Details Date Type Department Care Team (Late st Contact Info) Description 10/28/2020 Transcribed Document [facility] Family Medicine [address] [place] [address] ProviderJavier MD [address] [place], [place] [address] Social History Tobacco Use Types Packs/Day Years [...] Conversion Note - Javier ProviderMD - 10/28/2020 12:30 PM [facility] Nursing Discharge Summary Entered On: 10/28/2020 12:31 EST Performed On: 10/28/2020 12:30 EST by BONIFACIO LONGORIA RN Discharge Documentation Discharge Date/Time : 10/28/2020 12:30 EST Patient Disposition, General : Discharge Discharge To : Home with ambulatory/outpatient follow-up Mode Of Departure, General Discharge : Ambulatory Accompanied By, Discharge : Unaccompanied IV Discontinued : Yes Personal Belongings With Patient : Yes Discharge Instructions Reviewed With, Opportunity For Questions Given : Patient Patient Education Completed : Yes Teaching Method : Explanation Teaching Evaluation : Verbalizes understanding BONIFACIO LONGORIA RN - 10/28/2020 12:31 EST Electronically signed by [facility] Conversion Body Service Team Member Cerner at 02/28/2023 5:58 PM CDT documented in this encounter Plan of Treatment Upcoming Encounters Date Type Department Care Team (Late st Contact Info) Description 11/25/2025 9:00 AM EST Appointment [facility] Outpatient Treatment [address] [place] [address] documented as of this encounter Visit Diagnoses Not on filedocumented in this encounter Care Teams Clay Puddler Relationship Specialty Start Date End Date Morena Reese MD [address] [address] PCP - General General Internal Medicine 10/17/22 documented as of this encounter
--- OUTSIDE RECORDS SUMMARY | 2025-11-08 16:45 | XMS_ITS | Encounter Summary ---
Author Organization [employer] ([place], [place], [place], [place], [place]) Address [address] [place] [address] Care Team Providers Care Bar Gauger And Lubricator Tender Name Role Phone Morena Reese MD Primary Care Provider [phone] Encounter Details Date Type Department Care Team (Late st Contact Info) Description 07/06/2021 Transcribed Document [facility] Family Medicine [address] [place] [address] ProviderJavier MD [facility] [place], [place] [address] Social History Tobacco Use Types Packs/Day Years [...] Conversion Note - Javier Hale MD - 07/06/2021 1:20 PM CDT Outpatient Visit History Entered On: 07/06/2021 13:27 EDT Performed On: 07/06/2021 13:20 EDT by GALLITO RODARTE, RN Vital Measurements Temperature Source : Temporal artery scanning Temperature Mode : Fahrenheit Temperature, Fahrenheit : 97.4 Deg F Clinical Temperature, C : 36.3 Deg C Pulse Method : Non-Invasive BP Device Peripheral Pulse Rate : 87 bpm Respiratory Rate : 20 Breaths/Min Blood Pressure Location : Arm, right upper Blood Pressure Source : Non-Invasive BP Device Blood Pressure Position : Sitting Systolic Blood Pressure : 143 mmHg (HI) Diastolic Blood Pressure : 90 mmHg Oxygen Saturation : 98 % Oxygen Therapy Mode : Room air GALLITO RODRATE RN - 07/06/2021 13:23 EDT Height and Weight, Clinical Dosing Height Source : Chart Height Entry Format : [place]gg Height, Feet : 5 ft(Converted to: 152 cm, 60 Inch) Height, Inches : 4 Inch(Converted to: 0 ft 4 Inch, 10.16 cm) Clinical Height : 162.56 cm Weight Source : Standing scale Weight Entry Format : Gregg Clinical Dosing Weight : 100 kg Weight, Pounds : 220 lb Body Surface Area (BSA) : 2.04 m2 Body Mass Index : 37.8 kg/m2 (HI) [place] Body Weight : 54 kg GALLITO RODARTE RN - 07/06/2021 13:23 EDT Quick Look Assessment Level of Consciousness : Alert Affect/Behavior : Anxious Orientation : Oriented x 4 Skin Temperature : Warm Skin Description : Normal for ethnicity GALLITO RODARTE RN - 07/06/2021 13:23 EDT Health Histories Smoking Status : Former smoker, quit more than 30 days ago Smokeless Tobacco Status : Never GALLITO RODARTE RN - 07/06/2021 13:23 EDT Social History (As Of: 07/06/2021 13:27:18 EDT) Tobacco: Former smoker, quit more than [...] by EDENILSON ANDREWS RN) Infectious Disease History Has the patient ever been tested for COVID-19? : Yes, Patient stated results Negative Date of COVID-19 test known? : No Date Comment : received both vaccines Does patient have symptoms of COVID-19? : No COVID19 Screening : No Experiencing Infectious Disease Symptoms : No symptoms Physical contact outside [place] in the last 30 days : No Infectious Disease History : Chicken pox/Shingles, Measles, Mumps Tuberculosis Symptoms : None GALLITO RODARTE RN - 07/06/2021 13:23 EDT COVID19 PreProcedure Screening Is this an Emergent or Add on Procedure? : No Date PreProcedure COVID-19 test known? : No Has patient been isolated since the test : No Exposed to COVID19 symptoms since test? : No GALLITO RODARTE RN - 07/06/2021 13:23 EDT Advance Directive Patient has Advance Directive *Q : Yes, Advance Directive on file Advance Directive Type : Living will Copy Advance Directive Verified/on Chart : No GALLITO RODARTE RN - 07/06/2021 13:23 EDT [place] Suicide Severity Rating Scale (C-SSRS) CSSRS Past Month Wish to be : No CSSRS Past Month Suicidal Thoughts : No CSSRS Lifetime Suicide Behavior : No Suicide Severity Rating Score : 0 Suicide Severity Rating : No Additional Care Required at this time GALLITO RODARTE RN - 07/06/2021 13:23 EDT Psychosocial History Does Someone Depend on You for Care? : No Chronic/Terminal Illness w/Freq Visits : No Do You Have a History of the Following? : Anxiety Currently in Unsafe Situation : No GALLITO RODARTE RN - 07/06/2021 13:23 EDT Fall Risk Scales ABCs Fall Injury [...] Scale Risk Level : 0-24 Low Risk [place] Fall Interventions : Adequate lighting, Call device within reach, Frequent orientation to call device, Frequent orientation to surroundings, Hourly comfort/safety rounds, Non-slip footwear, Personal items within reach, Room free of clutter/spills, Wheels locked, Wires/Cords secured GALLITO RODARTE RN - 07/06/2021 13:23 EDT Pain Assessment Pain Assessment : Initial assessment Intensity : 0 GALLITO RODARTE RN - 07/06/2021 13:23 EDT documented in this encounter Plan of Treatment Upcoming Encounters Date Type Department Care Team (Late st Contact Info) Description 11/25/2025 9:00 AM EST Appointment [facility] Outpatient Treatment [address] [place] [address] documented as of this encounter Visit Diagnoses Not on filedocumented in this encounter Care Teams Bar Gauger And Lubricator Tender Relationship Specialty Start Date End Date Morena Reese MD [address] [address] PCP - General General Internal Medicine 10/17/22 documented as of this encounter
--- OUTSIDE RECORDS SUMMARY | 2025-11-08 16:45 | XMS_ITS | Encounter Summary ---
Author Organization [employer] ([place], [place], [place], [place], [place]) Address [address] [place] [address] Care Team Providers Care Integration Project Manager Name Role Phone Morena Reese MD Primary Care Provider [phone] Encounter Details Date Type Department Care Team (Late st Contact Info) Description 01/20/2021 Transcribed Document [facility] [place] Medicine [address] [place] [address] ProviderJavier MD [facility] [place], [place] [address] Social History Tobacco Use Types Packs/Day Years Used Date Smoking Tobacco: Never Assessed Comments Unknown Sex and Gender Information Value Date Recorded Sex Assigned at Female 05/10/2022 8:24 PM CDT Legal Sex Female 8:24 PM CDT Gender Identity Female 05/10/2022 8:24 PM CDT Sexual Orientation Not on file documented as of this encounter Miscellaneous Notes * Cerner Conversion Note - Javier ProviderMD - 01/20/2021 11:57 AM SENIOR NET DEVELOPER Nursing Discharge Summary Entered On: 01/20/2021 11:57 EST Performed On: 01/20/2021 11:57 EST by BILLIE DAVIS RN Discharge Documentation Discharge Date/Time : 01/20/2021 11:57 EST Patient Disposition, General : Discharge Discharge To : Home with ambulatory/outpatient follow-up Mode Of Departure, General Discharge : Private vehicle Accompanied By, Discharge : Unaccompanied IV Discontinued : Yes Personal Belongings With Patient : Yes Pt's Own Supply of Medications Returned : No patient supply of medications to return Discharge Instructions Reviewed With, Opportunity For Questions Given : Patient Patient Education Completed : Yes Teaching Evaluation : Verbalizes understanding BILLIE DAVIS RN - 01/20/2021 11:57 EST Electronically signed by [facility] Conversion Cocoa Mill Operator Cerner at 02/28/2023 5:57 PM CDT documented in this encounter Plan of Treatment Upcoming Encounters Date Type Department Care Team (Late st Contact Info) Description 11/25/2025 9:00 AM EST Appointment [facility] Outpatient Treatment [address] [place] [address] documented as of this encounter Visit Diagnoses Not on filedocumented in this encounter Care Teams Integration Project Manager Relationship Specialty Start Date End Date Morena Reese MD [address] [address] PCP - General General Internal Medicine 10/17/22 documented as of this encounter
--- OUTSIDE RECORDS SUMMARY | 2025-11-08 16:45 | XMS_ITS | Encounter Summary ---
Author Organization [employer] ([place], [place], [place], [place], [place]) Address [address] [place] [address] Care Team Providers Care Care Partner Name Role Phone Morena Reese MD Primary Care Provider [phone] Encounter Details Date Type Department Care Team (Late st Contact Info) Description 08/06/2020 Transcribed Document [facility] [place] [address] [place] [address] ProviderJavier MD [address] [place] [address] Social History Tobacco Use Types Packs/Day Years Used Date Smoking Tobacco: Never Assessed Comments Unknown Sex and Gender Information Value Date Recorded Sex Assigned at Female 05/10/2022 8:24 PM CDT Legal Sex Female 8:24 PM CDT Gender Identity Female 05/10/2022 8:24 PM CDT Sexual Orientation Not on file documented as of this encounter Miscellaneous Notes * Cerner Conversion Note - Javier ProviderMD - 08/06/2020 9:26 AM CDT Outpatient Visit History Entered On: 08/06/2020 9:31 EDT Performed On: 08/06/2020 9:26 EDT by ELLIOTT ZEPEDA RN Vital Measurements Temperature Source : Temporal artery scanning Temperature Mode : Fahrenheit Temperature, Fahrenheit : 97.9 Deg F Clinical Temperature, C : 36.6 Deg C Pulse Method : Non-Invasive BP Device Pulse Source : Brachial, Right Peripheral Pulse Rate : 73 bpm Respiratory Rate : 16 Breaths/Min Blood Pressure Source : Non-Invasive BP Device Systolic Blood Pressure : 125 mmHg Diastolic Blood Pressure : 66 mmHg Oxygen Saturation : 99 % Oxygen Therapy Mode : Room air ELLIOTT ZEPEDA RN - 08/06/2020 9:26 EDT Height and Weight, Clinical Dosing Height Source : Stated Height Entry Format : [place] Height, Feet : 5 ft(Converted to: 152 cm, 60 Inch) Height, Inches : 3 Inch(Converted to: 0 ft 3 Inch, 7.62 cm) Clinical Height : 160.02 cm Weight Source : Standing scale Weight Entry Format : [place] Clinical Dosing Weight : 100 kg Weight, Pounds : 220 lb Body Surface Area (BSA) : 2.02 m2 Body Mass Index : 39.1 kg/m2 (HI) [place] Body Weight : 52 kg ELLIOTT ZEPEDA RN - 08/06/2020 9:26 EDT Health Histories Smoking Status : Never (less than 100 in lifetime; none in last 30 days) Smokeless Tobacco Status : Never ELLIOTT ZEPEDA RN - 08/06/2020 9:26 EDT Social History (As Of: 08/06/2020 09:31:35 EDT) Tobacco: Former smoker, quit more than [...] History : None Tuberculosis Symptoms : None ELLIOTT ZEPDEA RN - 08/06/2020 9:26 EDT COVID19 PreProcedure Screening Is this an Emergent or Add on Procedure? : No Has patient been isolated since the test : No Exposed to COVID19 symptoms since test? : No ELLIOTT ZEPEDA RN - 08/06/2020 9:26 EDT Advance Directive Patient has Advance Directive *Q : No, patient refuses Advance Directive information ELLIOTT ZEPEDA RN - 08/06/2020 9:26 EDT [place] Suicide Severity Rating Scale (C-SSRS) CSSRS Past Month Wish to be : No CSSRS Past Month Suicidal Thoughts : No CSSRS Lifetime Suicide Behavior : No Suicide Severity Rating Score : 0 Suicide Severity Rating : No Additional Care Required at this time ELLIOTT ZEPEDA RN - 08/06/2020 9:26 EDT Psychosocial History Chronic/Terminal Illness w/Freq Visits : No Do You Have a History of the Following? : Anxiety Currently in Unsafe Situation : No ELLIOTT ZEPEDA RN - 08/06/2020 9:26 EDT Fall Risk Scales ABCs Fall Injury Risk Identification : Age ABC Fall Injury Risk : Moderate to high injury risk MARLEY Hx Falls Immediate/Within 3 Months : No Marley Secondary Diagnosis : No MARLEY Use of Ambulatory Aid : None MARLEY IV Therapy or IV Access : No Marley Gait/Transferring : Normal, bedrest, immobile Marley Mental Status : Oriented to own ability Marley Fall Risk Score : 0 MARLEY Fall Scale Risk Level : 25-45 Medium Risk [place] Fall Interventions : Adequate lighting, Assistive devices within reach, Bed in low position, Call device within reach, Fall prevention handout/education per facility policy, Personal items within reach, Reinforced to call for assistance before getting out of bed, Room free of clutter/spills, Upper side-rails up ELLIOTT ZEPEDA RN - 08/06/2020 9:26 EDT documented in this encounter Plan of Treatment Upcoming Encounters Date Type Department Care Team (Late st Contact Info) Description 11/25/2025 9:00 AM EST Appointment [facility] Outpatient Treatment [address] [place] [address] documented as of this encounter Visit Diagnoses Not on filedocumented in this encounter Care Teams Care Partner Relationship Specialty Start Date End Date Morena Reese MD [address] [address] PCP - General General Internal Medicine 10/17/22 documented as of this encounter
--- OUTSIDE RECORDS SUMMARY | 2025-11-08 16:45 | XMS_ITS | Encounter Summary ---
Author Organization [facility] ([place], [place], [place], [place], [place]) Address [address] [place] [address] Care Team Providers Care Residential Child Care Counselor Name Role Phone Morena Reese MD Primary Care Provider [phone] Encounter Details Date Type Department Care Team (Late st Contact Info) Description 05/24/2021 Transcribed Document [facility] [place] [address] [place] [address] ProviderJavier MD [facility] [place], [place] [address] Social History Tobacco Use Types Packs/Day Years Used Date Smoking Tobacco: Never Assessed Comments Unknown Sex and Gender Information Value Date Recorded Sex Assigned at Female 05/10/2022 8:24 PM CDT Legal Sex Female 8:24 PM CDT Gender Identity Female 05/10/2022 8:24 PM CDT Sexual Orientation Not on file documented as of this encounter Miscellaneous Notes * Cerner Conversion Note - Javier ProviderMD - 05/24/2021 3:50 PM CDT Nursing Discharge Summary Entered On: 05/24/2021 15:50 EDT Performed On: 05/24/2021 15:50 EDT by GALLITO RODARTE mold tooler Documentation Discharge Date/Time : 05/24/2021 15:50 EDT Patient Disposition, General : Discharge Discharge [...] in 8 weeks GALLITO RODARTE RN - 05/24/2021 15:50 EDT Electronically signed by [place], [facility] Conversion Wearing Apparel Assembler Cerner at 02/28/2023 6:14 PM CDT documented in this encounter Plan of Treatment Upcoming Encounters Date Type Department Care Team (Late st Contact Info) Description 11/25/2025 9:00 AM EST Appointment [facility] Outpatient Treatment [address] [place] [address] documented as of this encounter Visit Diagnoses Not on filedocumented in this encounter Care Teams Residential Child Care Counselor Relationship Specialty Start Date End Date Morena Reese MD [address] [address] PCP - General General Internal Medicine 10/17/22 documented as of this encounter
--- OUTSIDE RECORDS SUMMARY | 2025-11-08 16:45 | XMS_ITS | Referral Summary ---
Author Organization [employer] ([place], [place], [place], [place], [place]) Address [address] [place] [address] Care Team Providers Care Skein Yard Drier Name Role Phone Morena Reese MD Primary Care Provider [phone] Encounters Date Type Department Care Team Description 10/14/2025 9:00 AM EST - 10/14/2025 11:59 PM EST Hospital Encounter [facility] Outpatient Treatment [address] [place] [address] Seropositive rheumatoid arthritis of multiple sites (HCC) (Primary Dx) Discharge Disposition: Home or Self Care 09/29/2025 12:55 PM EST - 09/29/2025 11:59 PM EST Hospital Encounter [facility] - [facility] [address] [facility] [address] [place] [address] Morena Reese MD Personal history of tobacco use, presenting hazards to health Discharge Disposition: Home or Self Care 09/02/2025 9:00 AM EDT - 09/02/2025 11:59 PM EDT Hospital Encounter [facility] Outpatient Treatment [address] [place] [address] Seropositive rheumatoid arthritis of multiple sites (HCC) (Primary Dx); Rheumatoid arthritis (HCC) Discharge Disposition: Home or Self Care from Last 3 Months Allergies Active Allergy Reactions Criticality Noted Date [...] rheumatoid arthritis of multiple si gogo 10/17/2022 Social History Tobacco Use Types Packs/Day Years [...] Date Vito rded Speak language other than Swedish at home Not on file 11/24/2023 Want [...] Info) Description 11/25/2025 9:00 AM EST Appointment [facility] Outpatient Treatment [address] [place] [address] Procedures Procedure Name Priority Date/Time Associated Diagnosis [...] of series 3. us Morena Reese MD [facility] ORDERABLES Final Resul t * (ABNORMAL) CBC with automated diff (09/02/2025 9:38 AM EDT) WBC 9.1 3.9 - 10.0 K/ L 09/02/2025 9:56 AM EDT [facility] RBC 4.26 3.93 - 6.08 M/ L 09/02/2025 9:56 AM EDT [facility] Hemoglobin 13.4 11.2 - 15.7 GM/DL 09/02/2025 9:56 AM EDT [facility] Hematocrit 40.6 34.1 - 44.9 % 09/02/2025 9:56 AM EDT [facility] MCV 95 79 - 95 fL 09/02/2025 9:56 AM EDT [facility] MCH 31.5 25.6 - 32.2 pg 09/02/2025 9:56 AM EDT [facility] MCHC 33.0 32.2 - 36.5 GM/DL 09/02/2025 9:56 AM EDT [facility] RDW 13.8 11.6 - 14.4 % 09/02/2025 9:56 AM EDT [facility] Platelets 265 163 - 369 K/CU MM 09/02/2025 9:56 AM EDT [facility] MPV 10.9 9.4 - 12.4 fL 09/02/2025 9:56 AM EDT [facility] % Neutros 51 34 - 71 % 09/02/2025 9:56 AM EDT [facility] % Lymphs 36 19 - 53 % 09/02/2025 9:56 AM EDT [facility] % Monos 10 4 - 13 % 09/02/2025 9:56 AM EDT [facility] % Eos 2.3 1.0 - 7.0 % 09/02/2025 9:56 AM EDT [facility] % Baso 1 0 - 1 % 09/02/2025 9:56 AM EDT [facility] # Neutros 4.63 1.56 - 6.13 K/ L 09/02/2025 9:56 AM EDT [facility] # Lymphs 3.24 1.18 - 3.74 K/ L 09/02/2025 9:56 AM EDT [facility] # Monos 0.90(H) 0.24 - 0.82 K/ L 09/02/2025 9:56 AM EDT [facility] # Eos 0.21 0.04 - 0.54 K/ L 09/02/2025 9:56 AM EDT [facility] # Baso 0.05 0.01 - 0.08 K/ L 09/02/2025 9:56 AM EDT [facility] % Imm Grans 0.20 0.00 - 0.60 % 09/02/2025 9:56 AM EDT [facility] # IG 0.02 0.00 - 0.05 K/uL 09/02/2025 9:56 AM EDT [facility] Blood Venipuncture / Unknown 09/02/2025 9:38 AM EDT 09/02/2025 9:41 AM EDT [facility] - 09/02/2025 9:56 AM EDT When [...] BLOOD ORDERABLES Final Result Performing Organization Address City/[facility]/ZIP Co de Phone Number [facility] [address] [phone] * Sedimentation rate (09/02/2025 9:38 AM EDT) Pathologist [facility] Sed Rate 25 0 - 30 mm/HR 09/02/2025 10:13 AM EDT [facility] Blood Venipuncture / Unknown 09/02/2025 9:38 AM EDT 09/02/2025 9:41 AM EDT Ruperto Ricks MD LAB BLOOD ORDERABLES Final Result Performing Organization Address [facility]/ZIP Co de Phone Number [facility] [address] [phone] * BUN (09/02/2025 9:38 AM EDT) [facility] BUN 22 7 - 22 mg/dL 09/02/2025 10:03 AM EDT [facility] Blood Venipuncture / Unknown 09/02/2025 9:38 AM EDT 09/02/2025 9:41 AM EDT Ruperto Ricks MD LAB BLOOD ORDERABLES Final Result Performing Organization Address [facility] Co de Phone Number [facility] [address] [phone] * ALT (SGPT) (09/02/2025 9:38 AM EDT) Pathologist [facility] ALT 25 12 - 78 U/L 09/02/2025 10:03 AM EDT [facility] Blood Venipuncture / Unknown 09/02/2025 9:38 AM EDT 09/02/2025 9:41 AM EDT Ruperto Ricks MD LAB BLOOD ORDERABLES Final Result Performing Organization Address City/[facility]/ZIP Co de Phone Number [facility] [address] [phone] * AST (SGOT) (09/02/2025 9:38 AM EDT) AST 18 5 - 37 U/L 09/02/2025 10:03 AM EDT [facility] Blood Venipuncture / Unknown 09/02/2025 9:38 AM EDT 09/02/2025 9:41 AM EDT Ruperto Ricks MD LAB BLOOD ORDERABLES Final Result Performing Organization Address [facility] Co de Phone Number [facility] [address] [phone] * (ABNORMAL) Creatinine (09/02/2025 9:38 AM EDT) Creatinine 1.13(H) 0.55 - 1.02 mg/dL 09/02/2025 10:03 AM EDT [facility] eGFR (mL/min/1.73m2) 51(L) >=60 mL/min/1.7 3m2 09/02/2025 10:03 AM EDT [facility] Comment:ESTIMATED GFR IS NOT ACCURATE CREATININE CLEARANCE IN PREDICTING GLOMERULAR FILTRATION RATE. ESTIMATED GFR IS NOT APPLICABLE FOR DIALYSIS PATIENTS. Blood Venipuncture / Unknown 09/02/2025 9:38 AM EDT 09/02/2025 9:41 AM EDT Ruperto Ricks MD LAB BLOOD ORDERABLES Final Result Performing Organization Address [facility]/ZIP Co de Phone Number [facility] [address] [place] [address], [facility] [phone] from Last 3 Months Insurance Noel [employer] [id number] MEDICARE PART A B Care Teams Skein Yard Drier Relationship Specialty Start Date End Date Morena Reese MD [address] [address] PCP - General General Internal Medicine 10/17/22
--- OUTSIDE RECORDS SUMMARY | 2025-11-08 16:45 | XMS_ITS | Encounter Summary ---
Author Organization [employer] ([place], [place], [place], [place], [place]) Address [address] [place] [address] Care Team Providers Care Peanut Roaster Name Role Phone Morena Reese MD Primary Care Provider [phone] Encounter Details Date Type Department Care Team (Late st Contact Info) Description 01/20/2021 Transcribed Document [facility] [place] [address] [place] [address] ProviderJavier MD [address] [place], [place] [address] Social History Tobacco Use Types Packs/Day Years [...] Conversion Note - Javier Hale MD - 01/20/2021 9:37 AM DISPENSING LEAD Outpatient Visit History Entered On: 01/20/2021 9:39 EST Performed On: 01/20/2021 9:37 EST by TATIANNA GARNICA RN Vital Measurements Temperature Source : Temporal artery scanning Temperature Mode : Fahrenheit Temperature, Fahrenheit : 97.2 Deg F Clinical Temperature, C : 36.2 Deg C Pulse Method : Pulse Oximetry Peripheral Pulse Rate : 80 bpm Pulse Rhythm : Regular Respiratory Rate : 17 Breaths/Min Blood Pressure Location : Arm, right upper Blood Pressure Source : Non-Invasive BP Device Blood Pressure Position : Sitting Systolic Blood Pressure : 131 mmHg Diastolic Blood Pressure : 65 mmHg Oxygen Saturation : 96 % Oxygen Therapy Mode : Room air TATIANNA GARNICA RN - 01/20/2021 9:37 EST Height and Weight, Clinical Dosing Height Source : Stated Height Entry Format : [place] Height, Feet : 5 ft(Converted to: 152 cm, 60 Inch) Height, Inches : 4 Inch(Converted to: 0 ft 4 Inch, 10.16 cm) Clinical Height : 162.56 cm Weight Source : Standing scale Weight Entry Format : [place] Clinical Dosing Weight : 100 kg Weight, Pounds : 220 lb Body Surface Area (BSA) : 2.04 m2 Body Mass Index : 37.8 kg/m2 (HI) [place] Body Weight : 54 kg TATIANNA GARNICA RN - 01/20/2021 9:37 EST Quick Look Assessment Level of Consciousness : Alert, Awake Affect/Behavior : Appropriate, Calm, Cooperative Orientation : Oriented x 4 Skin Temperature : Warm Skin Description : Normal for ethnicity TATIANNA GARNICA RN - 01/20/2021 9:37 EST Health Histories Smoking Status : Former smoker, quit more than 30 days ago Smokeless Tobacco Status : Never TATIANNA GARNICA RN - 01/20/2021 9:37 EST Social History (As Of: 01/20/2021 09:39:21 EST) Tobacco: Former smoker, quit more than [...] pox/Shingles, Measles, Mumps Tuberculosis Symptoms : None TATIANNA GARNICA RN - 01/20/2021 9:37 EST COVID19 PreProcedure Screening Is this an Emergent or Add on Procedure? : No Date PreProcedure COVID-19 test known? : No Has patient been isolated since the test : N/A - PreProcedure, in-person visit Exposed to COVID19 symptoms since test? : N/A - PreProcedure, in-person visit TATIANNA GARNICA RN - 01/20/2021 9:37 EST Advance Directive Patient has Advance Directive *Q : Yes, Advance Directive not with the patient Advance Directive Type : Living will Copy Advance Directive Verified/on Chart : No TATIANNA GARNICA RN - 01/20/2021 9:37 EST [place] Suicide Severity Rating Scale (C-SSRS) CSSRS Past Month Wish to be : No CSSRS Past Month Suicidal Thoughts : No CSSRS Lifetime Suicide Behavior : No Suicide Severity Rating Score : 0 Suicide Severity Rating : No Additional Care Required at this time TATIANNA GARNICA RN - 01/20/2021 9:37 EST Psychosocial History Chronic/Terminal Illness w/Freq Visits : No Do You Have a History of the Following? : Anxiety Currently in Unsafe Situation : No TATIANNA GARNICA RN - 01/20/2021 9:37 EST Fall Risk Scales ABCs Fall Injury [...] Scale Risk Level : 25-45 Medium Risk [place] Fall Interventions : Adequate lighting, Bed in low position, Call device within reach, Personal items within reach, Room free of clutter/spills, Wheels locked, Wires/Cords secured TATIANNA GARNICA RN - 01/20/2021 9:37 EST Pain Assessment Pain Assessment : Initial assessment Intensity : 0 TATIANNA GARNICA RN - 01/20/2021 9:37 EST documented in this encounter Plan of Treatment Upcoming Encounters Date Type Department Care Team (Late st Contact Info) Description 11/25/2025 9:00 AM EST Appointment [facility] Outpatient Treatment [address] [place] [address] [place] [address] documented as of this encounter Visit Diagnoses Not on filedocumented in this encounter Care Teams Peanut Roaster Relationship Specialty Start Date End Date Morena Reese MD [address] [address] PCP - General General Internal Medicine 10/17/22 documented as of this encounter
--- OUTSIDE RECORDS SUMMARY | 2025-11-08 16:45 | XMS_ITS | Clinical Summary ---
Author Organization [facility] Address [address] [id number] Care Team Providers Care Energy Management Specialist Name Role Phone Morena Reese MD Primary Care Provider [phone] Allergies Active Allergy Reactions Criticality Noted Date Comments Lisinopril Cough Low 06/02/2016 Medications alendronate (Fosamax) 70 MG tablet alendronate 70 mg tablet Take 1 tablet every week by oral route for 90 days. Active amLODIPine (Norvasc) 10 MG tablet amlodipine 10 mg tablet TAKE ONE TABLET BY MOUTH ONCE DAILY Active gabapentin (Neurontin) 100 MG capsule 1 capsule every 8 (eight) hours. Active inFLIXimab (REMICADE IV) Remicade 5mg/kg IV q 6 wks (SJE) Active losartan (Cozaar) 50 MG tablet Active Active Problems Problem Noted Date Diagnosed Date Rheumatoid arthritis involving multiple sites Resolved Problems Problem Noted Date Diagnosed Date Resolved Date Pins and needles sensation 01/09/2022 0 08/03/2025 Family History Medical History Relation Name Comments Stroke Father Colon cancer Mother Relation Name Status Comments Father Mother Social History Tobacco Use Types Packs/Day Years Used Date Smoking Tobacco: Former Cigarettes 1 50 0 [birth year]/02/1966 - 08/02/2016 Smokeless Tobacco: Never Tobacco Cessation:Counseling Given: Yes PHQ-2 Answer Date Recorded Patient Health Questionnaire-2 Score 0 01/06/2022 Comments Unknown Sex and Gender Information Value Date Recorded Sex Assigned at Female 12/30/2021 10:52 AM EST Legal Sex Female 9:24 AM EST Gender Identity Female 12/30/2021 10:52 AM EST Sexual Orientation Not on file Last Filed Vital Signs Vital Sign Reading Time Taken Comments Blood Pressure 135/88 01/06/2022 9:48 AM EST Pulse 77 01/06/2022 9:48 AM EST Temperature 36.9 C (98.5 F) 01/06/2022 9:48 AM EST Respiratory Rate - - Oxygen Saturation 96% 01/06/2022 9:48 AM EST Inhaled Oxygen Concentration - - Weight 104 kg (229 lb 15 oz) 01/06/2022 9:48 AM EST Height 162.6 cm (5' 4 ) 01/06/2022 9:48 AM EST Body Mass Index 39.47 01/06/2022 9:48 AM EST Plan of Treatment Health Maintenance Due Date Last Done Comments [facility]-Bone Density Scan 1949 [facility]-Depression Screening 1950 [facility]-Infant/Child/Adol SDOH Screenings 1950 [facility]- SDOH Screenings 1967 [facility]-Adult SDOH Screenings 1967 [facility]-Zoster Vaccines (1 of 2) 1999 [facility]-RSV Vaccine: 60+ Years or (1 - 1-dose 75+ series) 2024 [id number] Vaccine (2 - 2024- season) 2025 10/26/2021 [facility]-Influenza Vaccine (#1) 2025 [facility]-DTaP,Tdap,and Td Vaccines (2 - Td or Tdap) 06/10/2026 06/10/2016 [facility]-Pneumococcal Vaccine: 50+ Years Completed 12/25/2019, 08/01/2018, 06/10/2016 HPV Vaccines (No Doses Required) Completed [facility]-HIB Vaccines Aged Out No longer e ligible based on patient's age to complete this topic [facility]-Hepatitis A Vaccines Aged Out No longer eligible based on patient's age to complete this topic [facility]-IPV Vaccines Aged Out No longer e ligible based on patient's age to complete this topic [facility]-Rotavirus Vaccines Aged Out No lo nger eligible based on patient's age to complete this topic [place] [address] Care Teams Energy Management Specialist Relationship Specialty [place] [address] PCP - General 11/08/21
--- OUTSIDE RECORDS SUMMARY | 2025-11-08 16:45 | XMS_ITS | Encounter Summary ---
Author Organization [employer] ([place], [place], [place], [place], [place]) Address [address] [place] [address] Care Team Providers Care Nail Sticker Name Role Phone Morena Reese MD Primary Care Provider [phone] Encounter Details Date Type Department Care Team (Late st Contact Info) Description 08/29/2019 Transcribed Document [facility] [place] [address] [place] [address] ProviderJavier MD [address] [place] [address] Social History Tobacco Use Types Packs/Day Years [...] Note - Javier Hale MD - 08/29/2019 1:23 PM CDT Nursing Discharge Summary Entered On: 08/29/2019 13:24 EDT Performed On: 08/29/2019 13:23 EDT by GALLITO RODARTE RN Discharge Documentation Discharge Date/Time : 08/29/2019 13:23 EDT Patient Disposition, General : Discharge Discharge To : Home with ambulatory/outpatient follow-up Mode Of Departure, General Discharge : Private vehicle IV Discontinued : Yes Personal Belongings With Patient : Yes Discharge Instructions Reviewed With, Opportunity For Questions Given : Patient Patient Education Completed : Yes Teaching Method : Explanation Teaching Evaluation : Verbalizes understanding GALLITO RODARTE RN - 08/29/2019 13:23 EDT documented in this encounter Plan of Treatment Upcoming Encounters Date Type Department Care Team (Late st Contact Info) Description 11/25/2025 9:00 AM EST Appointment [facility] Outpatient Treatment [address] [place] [address] documented as of this encounter Visit Diagnoses Not on filedocumented in this encounter Care Teams Nail Sticker Relationship Specialty Start Date End Date Morena Reese MD [address] [address] PCP - General General Internal Medicine 10/17/22 documented as of this encounter
--- OUTSIDE RECORDS SUMMARY | 2025-11-08 16:45 | XMS_ITS | Encounter Summary ---
Author Organization [employer] ([place], [place], [place], [place], [place]) Address [address] [place] [address] Care Team Providers Care Assistant Professor Of Mathematics Name Role Phone Morena Reese MD Primary Care Provider [phone] Encounter Details Date Type Department Care Team (Late st Contact Info) Description 08/17/2021 Transcribed Document [facility] [place] [address] [place] [address] ProviderJavier MD [address] [place], [place] [address] Social History Tobacco Use Types Packs/Day Years [...] Note - Javier Hale MD - 08/17/2021 4:25 PM CDT Nursing Discharge Summary Entered On: 08/17/2021 16:31 EDT Performed On: 08/17/2021 16:25 EDT by GALLITO RODARTE RN Discharge Documentation Discharge Date/Time : 08/17/2021 16:25 EDT Patient Disposition, General : Discharge Discharge [...] in 6 weeks GALLITO RODARTE RN - 08/17/2021 16:30 EDT Electronically signed by [place] [facility] Conversion Girls Swimming Coach Cerner at 02/28/2023 5:55 PM CDT documented in this encounter Plan of Treatment Upcoming Encounters Date Type Department Care Team (Late st Contact Info) Description 11/25/2025 9:00 AM EST Appointment [facility] Outpatient Treatment [address] [place] [address] documented as of this encounter Visit Diagnoses Not on filedocumented in this encounter Care Teams Assistant Professor Of Mathematics Relationship Specialty Start Date End Date Morena Reese MD [address] [address] PCP - General General Internal Medicine 10/17/22 documented as of this encounter
--- OUTSIDE RECORDS SUMMARY | 2025-11-08 16:45 | XMS_ITS | Encounter Summary ---
Author Organization [employer] ([place], [place], [place], [place], [place]) Address [address] [place] [address] Care Team Providers Care Radio Broadcaster Name Role Phone Morena Reese MD Primary Care Provider [phone] Encounter Details Date Type Department Care Team (Late st Contact Info) Description 05/24/2021 Transcribed Document [facility] [place] [address] [place] [address] ProviderJavier MD [facility] [place], [place] [address] Social History Tobacco Use Types Packs/Day Years [...] Note - Javier Hale MD - 05/24/2021 2:00 PM CDT Pain Assessment Entered On: 05/24/2021 15:48 EDT Performed On: 05/24/2021 14:19 EDT by GALLITO RODARTE, RN Intervention Information: acetaminophen Performed by TERRANCE ELIAS RN on 05/24/2021 13:19:00 EDT acetaminophen,1000mg Oral Pain Assessment Pain Comment : pre-med GALLITO RODARTE, RN - 05/24/2021 15:48 EDT documented in this encounter Plan of Treatment Upcoming Encounters Date Type Department Care Team (Late st Contact Info) Description 11/25/2025 9:00 AM EST Appointment [facility] [address] [place] [address] documented as of this encounter Visit Diagnoses Not on filedocumented in this encounter Care Teams Radio Broadcaster Relationship Specialty Start Date End Date Morena Reese MD [address] [address] PCP - General General Internal Medicine 10/17/22 documented as of this encounter
--- OUTSIDE RECORDS SUMMARY | 2025-11-08 16:45 | XMS_ITS | Encounter Summary ---
Author Organization [employer] ([place], [place], [place], [place], [place]) Address [address] [place] [address] Care Team Providers Care Global Safety Officer Name Role Phone Morena Reese MD Primary Care Provider [phone] Encounter Details Date Type Department Care Team (Late st Contact Info) Description 07/06/2021 Transcribed Document [facility] [place] [address] [place] [address] ProviderJavier MD [address] [place], [place] [address] Social History Tobacco Use Types Packs/Day Years [...] Note - Javier Hale MD - 07/06/2021 2:00 PM CDT Pain Assessment Entered On: 07/06/2021 15:32 EDT Performed On: 07/06/2021 14:39 EDT by TATIANNA GARNICA RN Intervention Information: acetaminophen Performed by GALLITO RODARTE RN on 07/06/2021 13:39:00 EDT acetaminophen,1000mg Oral Pain Assessment Pain Assessment : Follow-up assessment Pain Scale Used : 0-10 Scale TATIANNA GARNICA RN - 07/06/2021 15:31 EDT Pain Scale Intensity : 0 TATIANNA GARNICA RN - 07/06/2021 15:31 EDT Image 4 - Images currently included in the form version of this document have not been included in the text rendition version of the form. documented in this encounter Plan of Treatment Upcoming Encounters Date Type Department Care Team (Late st Contact Info) Description 11/25/2025 9:00 AM EST Appointment [facility] Outpatient Treatment [address] [place] [address] documented as of this encounter Visit Diagnoses Not on filedocumented in this encounter Care Teams Global Safety Officer Relationship Specialty Start Date End Date Morena Reese MD [address] [address] PCP - General General Internal Medicine 10/17/22 documented as of this encounter
--- OUTSIDE RECORDS SUMMARY | 2025-11-08 16:45 | XMS_ITS | Encounter Summary ---
Author Organization [employer] ([place], [place], [place], [place], [place]) Address [address] [place] [address] Care Team Providers Care Recycling Crew Supervisor Name Role Phone Morena Reese MD Primary Care Provider [phone] Encounter Details Date Type Department Care Team (Late st Contact Info) Description 07/06/2021 Transcribed Document [facility] [place] [address] [place] [address] ProviderJavier MD [address] [place], [place] [address] Social History Tobacco Use Types Packs/Day Years Used Date Smoking Tobacco: Never Assessed Comments Unknown Sex and Gender Information Value Date Recorded Sex Assigned at Female 05/10/2022 8:24 PM CDT Legal Sex Female 8:24 PM CDT Gender Identity Female 05/10/2022 8:24 PM CDT Sexual Orientation Not on file documented as of this encounter Miscellaneous Notes * Cerner Conversion Note - Javier ProviderMD - 07/06/2021 4:30 PM CDT Nursing Discharge Summary Entered On: 07/06/2021 16:30 EDT Performed On: 07/06/2021 16:30 EDT by GALLITO RODARTE RN Discharge Documentation Discharge Date/Time : 07/06/2021 16:30 EDT Patient Disposition, General : Discharge Discharge [...] in 6 weeks GALLITO RODARTE RN - 07/06/2021 16:30 EDT Electronically signed by [place] [facility] Conversion Inventory Controller Cerner at 02/28/2023 6:03 PM CDT documented in this encounter Plan of Treatment Upcoming Encounters Date Type Department Care Team (Late st Contact Info) Description 11/25/2025 9:00 AM EST Appointment [facility] Outpatient Treatment [address] [place] [address] documented as of this encounter Visit Diagnoses Not on filedocumented in this encounter Care Teams Recycling Crew Supervisor Relationship Specialty Start Date End Date Morena Reese MD [address] [address] PCP - General General Internal Medicine 10/17/22 documented as of this encounter
--- OUTSIDE RECORDS SUMMARY | 2025-11-08 16:45 | XMS_ITS | Encounter Summary ---
Author Organization [employer] ([place], [place], [place], [place], [place]) Address [address] [place] [address] Care Team Providers Care Regional Construction Manager Name Role Phone Morena Reese MD Primary Care Provider Encounter Details Date Type Department Care Team (Late st Contact Info) Description 06/01/2020 Transcribed Document [facility] [place] Medicine [address] [place] [address] ProviderJavier MD [address] [place] [address] Social History Tobacco Use Types Packs/Day Years [...] Note - Javier Hale MD - 06/01/2020 2:37 PM CDT Outpatient Visit History Entered On: 06/01/2020 14:42 EDT Performed On: 06/01/2020 14:37 EDT by EDENILSON ANDREWS, RN Vital Measurements Temperature Source : Temporal artery scanning Temperature Mode : Fahrenheit Temperature, Fahrenheit : 98.3 Deg F Clinical Temperature, C : 36.8 Deg C Pulse Method : Non-Invasive BP Device Pulse Source : Brachial, Right Peripheral Pulse Rate : 91 bpm Respiratory Rate : 16 Breaths/Min Blood Pressure Location : Arm, right upper Blood Pressure Source : Non-Invasive BP Device Blood Pressure Position : Sitting Systolic Blood Pressure : 127 mmHg Diastolic Blood Pressure : 66 mmHg Oxygen Saturation : 98 % Oxygen Therapy Mode : Room air EDENILSON ANDREWS RN - 06/01/2020 14:37 EDT Height and Weight, Clinical Dosing Height Source : Chart Height Entry Format : [place] Height, Feet : 5 ft(Converted to: 152 cm, 60 Inch) Height, Inches : 4 Inch(Converted to: 0 ft 4 Inch, 10.16 cm) Clinical Height : 162.56 cm Weight Source : Standing scale Weight Entry Format : [place] Clinical Dosing Weight : 100 kg Weight, Pounds : 220 lb Body Surface Area (BSA) : 2.04 m2 Body Mass Index : 37.8 kg/m2 (HI) [place] Body Weight : 54 kg EDENILSON ANDREWS RN - 06/01/2020 14:37 EDT Quick Look Assessment Level of Consciousness : Alert Affect/Behavior : Appropriate Orientation : Oriented x 4 Skin Temperature : Warm Skin Description : Normal for ethnicity EDENILSON ANDREWS RN - 06/01/2020 14:37 EDT Health Histories Smoking Status : Former smoker, quit more than 30 days ago Smokeless Tobacco Status : Never EDENILSON ANDREWS RN - 06/01/2020 14:37 EDT Social History (As Of: 06/01/2020 14:42:02 EDT) Tobacco: Former smoker, quit more than [...] History : None Tuberculosis Symptoms : None EDENILSON ANDREWS RN - 06/01/2020 14:37 EDT COVID19 PreProcedure Screening Is this an Emergent or Add on Procedure? : No Has patient been isolated since the test : N/A - PreProcedure, in-person visit Exposed to COVID19 symptoms since test? : N/A - PreProcedure, in-person visit EDENILSON ANDREWS RN - 06/01/2020 14:37 EDT Advance Directive Patient has Advance Directive *Q : No, patient refuses Advance Directive information EDENILSON ANDREWS RN - 06/01/2020 14:37 EDT [place] Suicide Severity Rating Scale (C-SSRS) CSSRS Past Month Wish to be : No CSSRS Past Month Suicidal Thoughts : No CSSRS Lifetime Suicide Behavior : No Suicide Severity Rating Score : 0 Suicide Severity Rating : No Additional Care Required at this time EDENILSON ANDREWS RN - 06/01/2020 14:37 EDT Psychosocial History Chronic/Terminal Illness w/Freq Visits : No Do You Have a History of the Following? : Anxiety Currently in Unsafe Situation : No EDENILSON ANDREWS RN - 06/01/2020 14:37 EDT Fall Risk Scales ABCs Fall Injury [...] Scale Risk Level : 0-24 Low Risk [place] Fall Interventions : Adequate lighting, Assistive devices within reach, Bed in low position, Call device within reach, Hourly comfort/safety rounds Fall Moderate to High Risk Interventions : Patient room close to nurses station Fall Risk Scale Calc Temp : 0 EDENILSON ANDREWS RN - 06/01/2020 14:37 EDT Pain Assessment Pain Assessment : Initial assessment Intensity : 8 EDENILSON ANDREWS RN - 06/01/2020 14:37 EDT Electronically signed by Jaxon Barahona Conversion Search Engine Optimization Strategist Cerner at 02/28/2023 6:16 PM CDT documented in this encounter Plan of Treatment Upcoming Encounters Date Type Department Care Team (Late st Contact Info) Description 11/25/2025 9:00 AM EST Appointment [facility] Outpatient Treatment [address] [place] [address] documented as of this encounter Visit Diagnoses Not on filedocumented in this encounter Care Teams Regional Construction Manager Relationship Specialty Start Date End Date Morena Reese MD [address] [address] PCP - General General Internal Medicine 10/17/22 documented as of this encounter
--- OUTSIDE RECORDS SUMMARY | 2025-11-08 16:45 | XMS_ITS | Encounter Summary ---
Author Organization [employer] ([place], [place], [place], [place], [place]) Address [address] [place] [address] Care Team Providers Care Telecom Assistant Name Role Phone Morena Reese MD Primary Care Provider [phone] Encounter Details Date Type Department Care Team (Late st Contact Info) Description 01/20/2021 Transcribed Document [facility] [place] Family Medicine [address] [place] [address] ProviderJavier MD [address] [place], [place] [address] Social History Tobacco Use Types Packs/Day Years [...] Conversion Note - Javier ProviderMD - 01/20/2021 10:00 AM RN CORRECTIONS Pain Assessment Entered On: 01/20/2021 10:29 EST Performed On: 01/20/2021 10:43 EST by TATIANNA GARNICA RN Intervention Information: acetaminophen Performed by TATIANNA GARNICA RN on 01/20/2021 09:43:00 EST acetaminophen,1000mg Oral Pain Assessment Pain Assessment : Follow-up assessment Pain Scale Used : 0-10 Scale TATIANNA GARNICA RN - 01/20/2021 10:29 EST Pain Scale Intensity : 0 TATIANNA GARNICA RN - 01/20/2021 10:29 EST Image 4 - Images currently included in the form version of this document have not been included in the text rendition version of the form. documented in this encounter Plan of Treatment Upcoming Encounters Date Type Department Care Team (Late st Contact Info) Description 11/25/2025 9:00 AM EST Appointment [facility] Outpatient Treatment [address] [place] [address] documented as of this encounter Visit Diagnoses Not on filedocumented in this encounter Care Teams Telecom Assistant Relationship Specialty Start Date End Date Morena Reese MD [address] [address] PCP - General General Internal Medicine 10/17/22 documented as of this encounter
--- OUTSIDE RECORDS SUMMARY | 2025-11-08 16:45 | XMS_ITS | Encounter Summary ---
Author Organization [employer] ([place], [place], [place], [place], [place]) Address [address] [place] [address] Care Team Providers Care Diversity Specialist Name Role Phone Morena Reese MD Primary Care Provider [phone] Encounter Details Date Type Department Care Team (Late st Contact Info) Description 01/07/2019 Transcribed Document [facility] [place] [address] [place] [address] ProviderJavier MD [address] [place], [place] [address] Social History Tobacco Use Types Packs/Day Years [...] Note - Javier Hale MD - 01/07/2019 12:40 PM QUALITY CONTROL CLERK Nursing Discharge Summary Entered On: 01/07/2019 12:40 EST Performed On: 01/07/2019 12:40 EST by BONIFACIO LONGORIA RN Discharge Documentation Discharge Date/Time : 01/07/2019 12:40 EST Patient Disposition, General : Discharge Discharge To : Home with ambulatory/outpatient follow-up Mode Of Departure, General Discharge : Ambulatory Accompanied By, Discharge : Unaccompanied IV Discontinued : Yes Personal Belongings With Patient : Yes Discharge Instructions Reviewed With, Opportunity For Questions Given : Patient Teaching Method : Explanation Teaching Evaluation : Verbalizes understanding BONIFACIO LONGORIA RN - 01/07/2019 12:40 EST Electronically signed by [facility] Conversion Final Inspector And Tester Cerner at 02/28/2023 6:11 PM CDT documented in this encounter Plan of Treatment Upcoming Encounters Date Type Department Care Team (Late st Contact Info) Description 11/25/2025 9:00 AM EST Appointment [facility] Outpatient Treatment [address] [place] [address] documented as of this encounter Visit Diagnoses Not on filedocumented in this encounter Care Teams Diversity Specialist Relationship Specialty Start Date End Date Morena Reese MD [address] [phone] PCP - General General Internal Medicine 10/17/22 documented as of this encounter
--- OUTSIDE RECORDS SUMMARY | 2025-11-08 16:45 | XMS_ITS | Encounter Summary ---
Author Organization [employer] ([place], [place], [place], [place], [place]) Address [address] [place] [address] Care Team Providers Care Partner Cco Name Role Phone Morena Reese MD Primary Care Provider [phone] Encounter Details Date Type Department Care Team (Late st Contact Info) Description 04/13/2021 Transcribed Document [facility] [place] [address] [place] [address] ProviderJavier MD [address] [place], [place] [address] Social History Tobacco Use Types Packs/Day Years [...] Note - Javier Hale MD - 04/13/2021 2:00 PM CDT Pain Assessment Entered On: 04/13/2021 16:10 EDT Performed On: 04/13/2021 14:24 EDT by GALLITO RODARTE RN Intervention Information: acetaminophen Performed by GALLITO RODARTE RN on 04/13/2021 13:24:00 EDT acetaminophen,1000mg Oral Pain Assessment Pain Comment : pre-med GALLITO RODARTE RN - 04/13/2021 16:10 EDT Electronically signed by Jaxon Barahona Conversion Electrical Maintenance Supervisor Cerner at 02/28/2023 6:00 PM CDT documented in this encounter Plan of Treatment Upcoming Encounters Date Type Department Care Team (Late st Contact Info) Description 11/25/2025 9:00 AM EST Appointment [facility] Outpatient Treatment [address] [place] [address] documented as of this encounter Visit Diagnoses Not on filedocumented in this encounter Care Teams Partner Cco Relationship Specialty Start Date End Date Morena Reese MD [address] [phone] PCP - General General Internal Medicine 10/17/22 documented as of this encounter
--- OUTSIDE RECORDS SUMMARY | 2025-11-08 16:45 | XMS_ITS | Encounter Summary ---
Author Organization [employer] ([place], [place], [place], [place], [place]) Address [address] [place] [address] Care Team Providers Care Motorcycle Subassembly Repairer Name Role Phone Morena Reese MD Primary Care Provider [phone] Encounter Details Date Type Department Care Team (Late st Contact Info) Description 03/03/2021 Transcribed Document [facility] [place] [address] [place] [address] ProviderJavier MD [facility] [place], [place] [address] Social History Tobacco Use Types Packs/Day Years [...] Conversion Note - Javier Hale MD - 03/03/2021 9:30 AM CDT Outpatient Visit History Entered On: 03/03/2021 9:39 EDT Performed On: 03/03/2021 9:30 EDT by GALLITO RODARTE, RN Vital Measurements Temperature Source : Temporal artery scanning Temperature Mode : Fahrenheit Temperature, Fahrenheit : 97 Deg F Clinical Temperature, C : 36.1 Deg C Pulse Method : Non-Invasive BP Device Peripheral Pulse Rate : 75 bpm Respiratory Rate : 20 Breaths/Min Blood Pressure Location : Arm, right upper Blood Pressure Source : Non-Invasive BP Device Blood Pressure Position : Sitting Systolic Blood Pressure : 149 mmHg (HI) Diastolic Blood Pressure : 67 mmHg Oxygen Saturation : 98 % Oxygen Therapy Mode : Room air GALLITO RODARTE RN - 03/03/2021 9:36 EDT Height and Weight, Clinical Dosing Height Source : Chart Height Entry Format : [place] Height, Feet : 5 ft(Converted to: 152 cm, 60 Inch) Height, Inches : 4 Inch(Converted to: 0 ft 4 Inch, 10.16 cm) Clinical Height : 162.56 cm Weight Source : Standing scale Weight Entry Format : [place] Clinical Dosing Weight : 100 kg Weight, Pounds : 220 lb Body Surface Area (BSA) : 2.04 m2 Body Mass Index : 37.8 kg/m2 (HI) [place] Body Weight : 54 kg GALLITO RODARTE RN - 03/03/2021 9:36 EDT Quick Look Assessment Level of Consciousness : Alert Affect/Behavior : Anxious Orientation : Oriented x 4 Skin Temperature : Warm Skin Description : Normal for ethnicity GALLITO RODARTE RN - 03/03/2021 9:36 EDT Health Histories Smoking Status : Former smoker, quit more than 30 days ago Smokeless Tobacco Status : Never GALLITO RODARTE RN - 03/03/2021 9:36 EDT Social History (As Of: 03/03/2021 09:39:40 EDT) Tobacco: Former smoker, quit more than [...] Symptoms : None GALLITO RODARTE RN - 03/03/2021 9:36 EDT COVID19 PreProcedure Screening Is this an Emergent or Add on Procedure? : No Date PreProcedure COVID-19 test known? : No Has patient been isolated since the test : No Exposed to COVID19 symptoms since test? : No COVID-19 PreProcedure Screening Comment : RECEIVED BOTH VACCINES FOR COVID GALLITO RODARTE RN - 03/03/2021 9:36 EDT Advance Directive Patient has Advance Directive *Q : Yes, Advance Directive on file Advance Directive Type : Living will Copy Advance Directive Verified/on Chart : No GALLITO RODARTE RN - 03/03/2021 9:36 EDT [place] Suicide Severity Rating Scale (C-SSRS) CSSRS Past Month Wish to be : No CSSRS Past Month Suicidal Thoughts : No CSSRS Lifetime Suicide Behavior : No Suicide Severity Rating Score : 0 Suicide Severity Rating : No Additional Care Required at this time GALLITO RODARTE RN - 03/03/2021 9:36 EDT Psychosocial History Does Someone Depend on You for Care? : No Chronic/Terminal Illness w/Freq Visits : No Do You Have a History of the Following? : Anxiety Currently in Unsafe Situation : No GALLITO RODARTE RN - 03/03/2021 9:36 EDT Fall Risk Scales ABCs Fall Injury [...] Scale Risk Level : 0-24 Low Risk [place] Fall Interventions : Adequate lighting, Bed in low position, Call device within reach, Frequent orientation to call device, Frequent orientation to surroundings, Hourly comfort/safety rounds, Non-slip footwear, Personal items within reach, Reinforced to call for assistance before getting out of bed, Room free of clutter/spills, Wheels locked, Wires/Cords secured GALLITO RODARTE RN - 03/03/2021 9:36 EDT Pain Assessment Pain Assessment : Initial assessment Intensity : 0 GALLITO RODARTE RN - 03/03/2021 9:36 EDT documented in this encounter Plan of Treatment Upcoming Encounters Date Type Department Care Team (Late st Contact Info) Description 11/25/2025 9:00 AM EST Appointment [facility] Outpatient Treatment [address] [place] [address] documented as of this encounter Visit Diagnoses Not on filedocumented in this encounter Care Teams Motorcycle Subassembly Repairer Relationship Specialty Start Date End Date Morena Reese MD [address] [phone] PCP - General General Internal Medicine 10/17/22 documented as of this encounter
--- OUTSIDE RECORDS SUMMARY | 2025-11-08 16:46 | XMS_ITS | Encounter Summary ---
Author Organization [employer] ([place], [place], [place], [place], [place]) Address [address] [place] [address] Care Team Providers Care Business Account Manager Name Role Phone Morena Reese MD Primary Care Provider [phone] Encounter Details Date Type Department Care Team (Late st Contact Info) Description 11/09/2021 Transcribed Document [facility] [place] [address] [place] [address] ProviderJavier MD [address] [place], [place] [address] Social History Tobacco Use Types Packs/Day Years [...] Conversion Note - Javier ProviderMD - 11/09/2021 2:00 PM TRANSPORT TECH Pain Assessment Entered On: 11/09/2021 16:00 EST Performed On: 11/09/2021 14:39 EST by GALLITO RODARTE RN Intervention Information: acetaminophen Performed by GALLITO RODARTE RN on 11/09/2021 13:39:00 EST acetaminophen,1000mg Oral Pain Assessment Pain Comment : pre-med GALLITO RODARTE RN - 11/09/2021 16:00 EST Electronically signed by Jaxon Barahona Conversion Health And Physical Education Professor Cerner at 02/28/2023 6:16 PM CDT documented in this encounter Plan of Treatment Upcoming Encounters Date Type Department Care Team (Late st Contact Info) Description 11/25/2025 9:00 AM EST Appointment [facility] Outpatient Treatment [address] [place] [address] documented as of this encounter Visit Diagnoses Not on filedocumented in this encounter Care Teams Business Account Manager Relationship Specialty Start Date End Date Morena Reese MD [address] [phone] PCP - General General Internal Medicine 10/17/22 documented as of this encounter
--- OUTSIDE RECORDS SUMMARY | 2025-11-08 16:46 | XMS_ITS | Clinical Summary ---
[facility] Address [address] [place] [address] Care Team Providers Care Laundry Sorter Name Role Phone Morena Reese MD Primary Care Provider [phone] Family History Medical History Relation Name Comments Breast cancer Neg Hx Ovarian cancer Neg Hx Social History Tobacco Use Types Packs/Day Years Used Date Smoking Tobacco: Never Assessed Abuse Screen Answer Date Recorded Unsafe at Home or Work/School Not on file Feels Threatened by Someone? Not on file 07/2023 Does Anyone Keep You from Co ntacting Others or Doint Things Outside the Home? Not on file 08/21/2023 Physical Sign of Abuse Present Not on file 1 Housing Stability Answer Date Recorded Current Living Arrangements Not on file 07/2023 Potentially Unsafe Housing Conditions Not on heraclio e 08/21/2023 Family and Community Support Answer Eddie e Recorded Help with Day-to-Day Activities Not on file 08/21/2023 Lonely or Isolated Not on file 08/21/2023 Employment Answer Date Recorded Do you want help finding or keeping work or a sofi b? Not on file 08/21/2023 Disabilities Answer Date Recorded Concentrating, Remembering, or Making Decisions Difficulty Not on file 08/21/2023 Doing Errands Independently Difficulty Not on fi le 08/21/2023 Education Answer Date Recorded Help with school or training? Not on file Preferred Language Not on file 08/21/2023 Comments No Sex and Gender Information Value Date Recorded Sex Assigned at Not on file Legal Sex Female 11:27 AM EDT Gender Identity Not on file Sexual Orientation Not on file Last Filed Vital Signs Vital Sign Reading Time Taken Comments Blood Pressure - - Pulse - - Temperature - - Respiratory Rate - - Oxygen Saturation - - Inhaled Oxygen Concentration - - Weight 99.8 kg (220 lb) 08/13/2024 12:05 PM EDT Height 162.6 cm (5' 4 ) 08/13/2024 12:05 PM EDT Body Mass Index 37.76 08/13/2024 12:05 PM EDT Plan of Treatment Health Maintenance Due Date Last Done Comments ANNUAL PHYSICAL 1950 DXA SCAN 1950 HEPATITIS C SCREENING 1950 ZOSTER VACCINE (1 of 2) 1999 RSV Vaccine - Adults (1 - 1- dose 75+ series) 2024 INFLUENZA VACCINE 06/13/2025 11/20/2023 COVID-19 Vaccine (4 - 2024-2 6 season) 2025 11/20/2023, 08/04/2022, 10/26/2021 TDAP/TD VACCINES (2 - Td or Tdap) 06/10/2026 016 MAMMOGRAM Discontinued 11/22/2018, 12/2018, 11/14/2018, Additional history exists Pneumococcal Vaccine 50+ Completed 020, 08/01/2018, 06/10/2016 Procedures Procedure Name Priority Date/Time Associated Diagnosis Comments MAMMO DIAGNOSTIC BILATERAL W CAD Routine 11/22/2018 10:52 AM EST Abnormal mammogram from Last 3 Months or Most Recently Relevant to Health Maintenance Results * Mammo Diagnostic Bilateral With CAD (11/22/2018 10:52 AM EST) Anatomical Region Laterality Modality Breast Bilateral Mammography 11/22/2018 1:40 PM EST Impressions 11/22/2018 3:49 PM EST Prominent bilateral axillary lymph nodes on mammographic imaging with no evidence of lymphadenopathy identified on focused sonographic imaging. The patient has a history of rheumatoid arthritis. RECOMMENDATION: Short interval bilateral mammographic followup in 6 months utilizing MLO views to re-evaluate axillary lymph nodes. BI-RADS CATEGORY 3, PROBABLY BENIGN. CAD was utilized. The standard false-negative rate of mammography is between 10% and 25%. Complex patterns or increased breast density will markedly elevate the false-negative rate of mammography. A results letter, in lay terminology, will be given to the patient at the conclusion of the exam. _ Physician Order Diagnostic 6 Month follow up Mammogram and/or Breast Ultrasound. Diagnosis: Abnormal Mammogram This report was finalized on 11/22/2018 3:[address] Susana Reina MD. Narrative 11/22/2018 3:49 PM EST BILATERAL DIAGNOSTIC MAMMOGRAM AND BILATERAL AXILLARY ULTRASOUND-11/22/2018: HISTORY: 68-year-old patient recalled from screening mammography dated 11/09/2018 for prominent bilateral axillary lymph nodes. The patient has a history of rheumatoid arthritis. She has no personal history of breast cancer or other cancers. TECHNIQUE: 2-D bilateral MLO focal compression imaging was performed of the axillary regions. Furthermore, focused sonographic imaging was performed of the axillary regions. COMPARISON: [facility] mammogram dated 11/09/2018. [facility] mammograms dated 07/15/2016, 10/02/2013, 09/30/2013, and 09/17/2013. FINDINGS: Additional mammographic imaging of bilateral axillary regions demonstrates lymph nodes with lucent hilar regions. Some of these lymph nodes demonstrate prominent cortical tissue on mammographic imaging. Some of these lymph nodes are similar in appearance on the prior 09/17/2013 [facility] mammogram. However, less axillary tissue was included on the outside study and fewer lymph nodes are visualized. Focused sonographic imaging of bilateral axillary regions demonstrates multiple unremarkable lymph nodes with [id number] prominent cortical tissue. No definite sonographic lymphadenopathy is identified. us Ethel Patel MD IMG MAMMOGRAPHY ORDERABLES Fin al Result from Last 3 Months or Most Recently Relevant to Health Maintenance Insurance MEDICARE A & B [facility] Care Teams Laundry Sorter Relationship Specialty [place] [address] [place] [address] PCP - General Internal Medicine 09/25/18
== END 2025-11-08 23:59 | disposition home or self-care (01) ==
PROVIDERS: PCP Internal Medicine; Visit Provider Student in an Organized Health Care Education/Training Program
DX: S92.351A Displaced fracture of fifth metatarsal bone, right foot, initial encounter for closed fracture (principal); X58.XXXA Exposure to other specified factors, initial encounter
CPT/HCPCS: 73610; 73630